=== PATIENT | male | born 1960 | race Caucasian/White ===

== ENCOUNTER 2020-04-24 14:09 | Emergency (ER) | payer OTHER, SELFPAY ==
[2020-04-24] VITALS (9 sets, daily range): BP systolic 143–240; BP diastolic 96–111; PULSE 74–99; RESP 16–25; TEMP 36.6–37.1; O2SAT 96–100
--- NOTE | ~2020-04-24 | CT_ITS ---
EXAMINATION: CT thoracic lumbar wo con EXAM DATE: 04/24/2020 15:13 INDICATION: Numbness and tingling to lower legs and feet. TECHNIQUE: Spiral CT thoracolumbar spine was performed without contrast. Axial, coronal and sagittal images of the thoracic spine were reviewed. Axial, coronal and sagittal images of the lumbar spine we re reviewed. The dose-length product (DLP) for this examination was 2184.65 mGy-cm. The exposure was tailored according to patient size (auto mA exposure control), and iterative reconstruction (ASIR) w as used as additional dose reduction technique. There is no prior study for comparison. FINDINGS: THORACIC SPINE: There is a mass centered in the posterior elements of the T2 vertebral body which is round in shape, measuring about 4.4 x 4.8 cm, causing significant central canal stenosis. The T2 pedi cles and spinous processes are nearly completely eroded. This is most likely some kind of malignancy/ metastatic disease. A contrast enhanced MRI thoracic spine would be better for evaluating degree of c entral canal stenosis, but cord compression is likely. If patient's symptoms are acute, consider tria l of steroids. Neurosurgical consult also recommended. There are small Schmorl's nodes at the mid and lower thoracic levels, and mild diffuse thoracic disc disease. The vertebral body heights are aligne d. LUMBAR SPINE: There is a heterogeneously enhancing mass in the inferomedial aspect of the right kidne y measuring 4.5 cm, appearance most consistent with a cystic renal cell cancer. There is no evidence of acute lumbar fracture. There is no disc space widening or traumatic vertebral body subluxation cerna spected. Paraspinal soft tissue is unremarkable. There is overall mild to moderate lumbar facet art hropathy. No additional osteoblastic or osteolytic lesions are identified. No more than mild to moder ate lumbar neural foraminal and central canal stenosis. A detailed level by level evaluation of spond ylosis can be added as addendum if requested. IMPRESSION: 1. Mass centered in posterior elements of T2 most likely malignancy, could be metastatic disease (re nal cell cancer?) or plasmocytoma other histology. Severe central canal stenosis, cord compression is suspected. Recommend MR thoracic spine without and with contrast, neurosurgical consult, considering steroid trial. 2. Right renal heterogeneous 4.5 cm mass inferomedially, incompletely imaged. Most likely cystic RCC . Recommend consult. 3. Mild thoracic, mild to moderate lumbar spondylosis. Reviewed, dictated and finalized at location A. IMPRESSION: 1. Mass centered in posterior elements of T2 most likely malignancy, could be metastatic disease (renal cell cancer?) or plasmocytoma other histology. Severe central canal stenosis, cord compression is suspected. Recommend MR thoracic s pine without and with contrast, neurosurgical consult, considering steroid tria l. 2. Right renal heterogeneous 4.5 cm mass inferomedially, incompletely imaged. Most likely cystic RCC. Recommend consult. 3. Mild thoracic, mild to moderate lumbar spondylosis.
--- NOTE | ~2020-04-24 | CT_ITS ---
EXAMINATION: CT chest abdomen pelvis w con EXAM DATE: 04/24/2020 16:53 INDICATION: Right renal mass, T2 vertebral posterior element mass. TECHNIQUE: Spiral CT of the chest, abdomen and pelvis was performed following intravenous injection o f 100 mL Omnipaque 350. Axial, coronal and sagittal images were reviewed. Coronal maximum intensity pixel images of chest reviewed. The dose-length product (DLP) for this examination was 1580.86 mGy- cm. The exposure was tailored according to patient size (auto mA exposure control), and iterative re construction (ASIR) was used as additional dose reduction technique. Correlation is made to thoracolu mbar spine same date. FINDINGS: CHEST: There is a mass centered in the posterior elements of the T2 vertebral body with osseous destr uction, heterogeneous enhancement, measuring 4.6 x 4.9 cm, and likely causing severe central canal st enosis, cord compression. The lungs are clear. There are no pleural or pericardial effusions. Tra cheobronchial tree is patent. There is no mediastinal, hilar or axillary lymphadenopathy. There i s no pneumothorax. Heart normal in size. There is mild coronary arterial calcification, arterial sclerosis. ABDOMEN PELVIS: There is an 8 cm mass in the lower pole of the right kidney, consistent with renal ce ll cancer. The liver, spleen, adrenal glands and pancreas are unremarkable. Gallbladder is unremark able. No biliary obstruction. The prostate is unremarkable. The bladder is unremarkable. There i s no retroperitoneal or pelvic lymphadenopathy. There is mild scattered arteriosclerotic disease. The appendix is not positively visualized. There is no pericecal inflammatory change to suggest appe ndicitis. The stomach and small bowel are unremarkable. There is mild scattered colonic diverticulo sis. There is no adjacent inflammatory change to suggest diverticulitis. No free intraperitoneal ga s. IMPRESSION: 1. Right renal mass up to 8 cm likely RCC. 2. T2 posterior element mass up to 4.9 cm, likely causing severe central canal stenosis, cord compre ssion. 3. Mild scattered colonic diverticulosis. Reviewed, dictated and finalized at location A. IMPRESSION: 1. Right renal mass up to 8 cm likely RCC. 2. T2 posterior element mass up to 4.9 cm, likely causing severe central canal stenosis, cord compression. 3. Mild scattered colonic diverticulosis.
--- NOTE | 2020-04-24 14:28 | ECG_ITS ---
Measurements Intervals [place] Rate: 87 P: 28 MI: 162 QRS: 21 QRSD: 99 T: 20 QT: 365 QTc: 440 Interpretive Statements SINUS RHYTHM MINIMAL Q WAVES- ANTEROLAT/INF LEADS BORDERLINE ECG Electronically Signed On 04-24-2020 15:48:28 CDT by Oleksandr Naranjo D.O.
[2020-04-24] MEDS: SODIUM CHLORIDE 0.9% IV 1,000 ML 999 ML IV CONT (14:38)
[2020-04-24 14:48] LABS: Basophils Absolute Auto 0.1 K/mm3 (0.0-0.1); Eosinophils Absolute Auto 0.1 K/mm3 (0-0.3); Eosinophils Percent Auto 0.7 % (0-4.4); Hematocrit 48.4 % (42.0-52.0); Hemoglobin 16.5 g/dL (14.0-18.0); Immature Granulocyte Absolute 0.04 K/mm3 (0.00-0.031); Immature Granulocyte Percent A 0.3 % (0-0.5); Lymphocytes Absolute Auto 4.21 K/mm3 (0.9-3.2); Lymphocytes Percent Auto 34.9 % (18.3-44.2); Mean Corpuscular HGB Conc 34.1 g/dl (32-36); Mean Corpuscular Hemoglobin 30.4 pg (26-34); Mean Corpuscular Volume 89.1 fl (80-100); Mean Platelet Volume 9.7 fl (7.4-10.4); Monocytes Percent Auto 16.9 % (2.6-8.5); Neutrophils Absolute Auto 5.6 K/mm3 (1.3-6.7); Neutrophils Percent Auto 46.2 % (45.5-73.1); Platelet Count Result 594 k/mm3 (150-375); Red Blood Count 5.43 M/mm3 (4.6-6.20); Red Cell Distribution Width 12.7 % (11.5-14.5); White Blood Count 12.1 K/mm3 (4.5-10.0)
[2020-04-24 14:58] LABS: INR 1.1; Partial Thromboplastin Time 27.4 SECONDS (22.3-36.8); Prothrombin Time 14.1 Seconds (11.1-14.7)
[2020-04-24 15:01] LABS: Alanine Aminotransferase 50 U/L (4-50); Albumin Level 4.3 g/dL (3.5-5.1); Alkaline Phosphatase 61 U/L (38-126); Anion Gap 12.5 mmol/L (7-16); Aspartate Amino Transferase 50 U/L (17-59); Bilirubin,Total 0.6 mg/dL (0.2-1.3); Blood Urea Nitrogen 15 mg/dL (9-20); CRP < 0.5 mg/dL (<1.0); Calcium 9.6 mg/dL (8.4-10.2); Carbon Dioxide 25 mmol/L (22-30); Chloride 105 mmol/L (98-107); Estimated CRCL calculation 93 ml/min; Estimated Glomerular Filt Rate > 60; Glucose 92 mg/dL (75-110); Potassium 3.5 mmol/L (3.4-5.0); Sodium 139 mmol/L (137-145)
--- NOTE | 2020-04-24 15:08 | ED.GENADULT ---
HPI - General Adult General Chief complaint: Neuro Symptoms/Deficit Stated complaint: leg numbness/upper back pain Time Seen by Provider: 04/24/20 14:27 Source: patient and family Mode of arrival: ambulatory Limitations: no limitations History of Present Illness HPI narrative: Patient is a 59-year-old male who presents to emergency department for evaluation of upper thoracic back pain for 8 weeks is a moderate aching pain worse with position and activity his physician prescribed an anti-inflammatory muscle relaxer which she states helped at first but has begun to not help patient also notes over the last 2 days he developed some numbness and tingling in the lower extremities patient has been taking the prescribed medications only patient denies injury or trauma or recent illness or similar occurrence in the past presents with normal gait no distress Related Data Home Medications Medication Instructions Recorded Confirmed etodolac 400 mg PO BID 04/24/20 04/24/20 fluoxetine 60 mg PO DAILY 04/24/20 04/24/20 methocarbamol 500 mg PO HS 04/24/20 04/24/20 trazodone 100 mg PO HS 04/24/20 04/24/20 Allergies Allergy/AdvReac Type Severity Reaction Status Date / Time No Known Allergies Allergy Mild Verified 04/24/20 14:09 Review of Systems Review of Systems: All systems reviewed & are unremarkable except as noted in HPI and below PMFSH Past Medical History Medical History (Updated 04/24/20 @ 18:40 by Regulo Jaimes PA-C) Depression Surgical History Surgical History (Updated 04/24/20 @ 15:09 by Regulo Jaimes PA-C) History of appendectomy Social History Social History (Updated 04/24/20 @ 15:09 by Regulo Jaimes PA-C) Smoking status: Never smoker Exam Narrative: Exam Narrative: GENERAL: Well-appearing, well-nourished, and in no acute distress. HEAD: Normocephalic, atraumatic. EYES: PERRLA and EOMI. ENT: Nares clear, no rhinorrhea or epistaxis. Mucous membranes moist. NECK: Supple. No adenopathy or masses. CHEST: Clear to auscultation. No respiratory distress. No wheezes rales or rhonchi HEART: Regular rate and rhythm. No murmur heard. Normal peripheral pulses. ABDOMEN: Soft, nontender, nondistended EXTREMITIES: Normal range of motion. No edema. Midthoracic tenderness no other thoracic or lumbar cervical tenderness no deformities noted on exam SKIN: Warm, dry, no rash. NEURO: No focal deficits. Alert and oriented x3. Motor and sensory intact and symmetrical in the extremities. Cranial nerves II through XII grossly intact . Normal speech and gait. No pronator drift PSYCH: Normal mood and affect. Course Course Emergency Course: Patient in the room at this time aware of case findings treatment plan diagnosis will be transferred to [facility] as a direct admit to the neurosurgical service given blood pressure medication and pain management in the emergency department Consultations Consultation #1: Discussed case with neurosurgery at [facility] who is agreed to accept the patient as a direct admission Date: 04/24/20 Time: 16:12 Vital Signs Vital signs: Vital Signs Temperature 97.9 F 04/24/20 14:14 Pulse Rate 99 04/24/20 14:14 Respiratory Rate 25 H 04/24/20 14:14 Blood Pressure 203/110 H 04/24/20 14:14 Pulse Oximetry 96 04/24/20 14:14 Temperature 98.5 F 04/24/20 18:02 Pulse Rate 74 04/24/20 18:02 Respiratory Rate 19 04/24/20 18:02 Blood Pressure 186/101 H 04/24/20 18:02 Pulse Oximetry 97 04/24/20 18:02 Medical Decision Making [facility] Narrative Medical decision making narrative: 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
[2020-04-24 15:16] LABS: Erythrocyte Sedimentation Rate 11 mm/hr (0-20)
[2020-04-24] MEDS: MORPHINE SULFATE 4 MG/ML INJ IV PUSH ×3 (15:50→21:31)
[2020-04-24] MEDS: hydrALAZINE HCL 20 MG/ML VIAL 10 MG IV PUSH (16:13)
[2020-04-24 16:48] LABS: Add Urine Microscopic? YES; Appearance Urine Clear (Clear); Bilirubin Urine Negative (Negative); Blood Urine Negative (Negative); Color Urine Straw (Yellow); Glucose Urine UA Negative (Negative); Ketones Urine Negative (Negative); Leukocyte Esterase Ur Negative LEU/UL (Negative); Mucus Urine Rare /lpf; Nitrate Urine Negative (Negative); Protein Urine Negative (Negative); RBC Urine 0-2 /hpf (0-2); Specific Grav Ur 1.011 (1.001-1.035); WBC Urine 0-3 /hpf
[2020-04-24] MEDS: METOPROLOL TARTRATE INJ 5 MG/5 ML VIAL IV PUSH (17:03)
--- NOTE | 2020-04-24 18:11 | PC.NURSE ---
Addendum entered by Dianne Mccray 04/24/20 19:56: Also called both [facility] and [facility], both declined due to being down staff/trucks Addendum entered by Dianne Mccray 04/24/20 19:49: Called to check status on ETA...approximately 22:00...waiting on an ambulance to complete trip to [facility]. Original Note: [facility] ACCEPTED TRANSFER to [facility] 1972 Trip # [id number]
[2020-04-25 00:05] VITALS: BP 154/97; PULSE 82; RESP 16; O2SAT 98
--- NOTE | 2020-04-25 00:35 | PC.NURSE ---
pt c/o increased pain in cervicle MD suma notified. pain meds verbal order Dilaudid 0.5mg iv push.
[2020-04-25 02:56] VITALS: BP 161/92; PULSE 74; RESP 16; O2SAT 98
[2020-04-25 05:21] VITALS: BP 162/79; PULSE 78; RESP 18; TEMP 36.6; O2SAT 98
== END 2020-04-25 05:22 | disposition short-term general hospital (02) ==
PROVIDERS: Emergency Medicine Emergency Medical Services; Emergency Provider Emergency Medicine
DX: M89.9 Disorder of bone, unspecified (principal); N28.89 Other specified disorders of kidney and ureter; F32.9 Major depressive disorder, single episode, unspecified; M47.814 Spondylosis without myelopathy or radiculopathy, thoracic region; M47.816 Spondylosis without myelopathy or radiculopathy, lumbar region
CPT/HCPCS: 36415; 71260; 72128; 72131; 74177; 80053; 81001; 85025; 85610; 85652; 85730; 86140; 87040; 93005; 96361; 96365; 96375; 96376; 99285; J0131; J0360; J1170; J2270; J7030; Q9967

== ENCOUNTER 2020-05-13 21:41 | Emergency (ER) | payer OTHER, SELFPAY ==
--- NOTE | ~2020-05-13 | XR_ITS ---
XR chest 2V 05/13/2020 23:43 Indication: Fever. Procedure: 2 view chest Comparison: 09/28/2006 Findings: Left basilar infiltrates. Heart size normal. Right lung clear. No pleural effusion, edema o r pneumothorax. There are surgical changes of the upper cervical spine. Impression: 1: Left basilar infiltrates, atelectasis versus pneumonia. Reviewed, dictated and finalized at location A. Impression: 1: Left basilar infiltrates, atelectasis versus pneumonia.
[2020-05-13 21:43] VITALS: BP 145/85; PULSE 98; RESP 18; TEMP 38.1; O2SAT 93
[2020-05-13 21:52] VITALS: PULSE 98
[2020-05-13 21:53] VITALS: RESP 18; O2SAT 99
--- NOTE | 2020-05-13 23:30 | PC.NURSE ---
pt states he is unable to provide urine specimen at this time.
[2020-05-13 23:37] LABS: Basophils Absolute Auto 0.1 K/mm3 (0.0-0.1); Basophils Percent Auto 0.6 % (0.2-1.2); Eosinophils Absolute Auto 0.3 K/mm3 (0-0.3); Eosinophils Percent Auto 3.7 % (0-4.4); Hematocrit 31.5 % (42.0-52.0); Hemoglobin 10.3 g/dL (14.0-18.0); Immature Granulocyte Absolute 0.03 K/mm3 (0.00-0.031); Immature Granulocyte Percent A 0.3 % (0-0.5); Lymphocytes Absolute Auto 2.13 K/mm3 (0.9-3.2); Lymphocytes Percent Auto 23.6 % (18.3-44.2); Mean Corpuscular HGB Conc 32.7 g/dl (32-36); Mean Corpuscular Hemoglobin 29.6 pg (26-34); Mean Corpuscular Volume 90.5 fl (80-100); Mean Platelet Volume 8.7 fl (7.4-10.4); Monocytes Absolute Auto 1.5 K/mm3 (0.1-0.6); Monocytes Percent Auto 16.5 % (2.6-8.5); Neutrophils Percent Auto 55.3 % (45.5-73.1); Platelet Count Result 663 k/mm3 (150-375); Red Blood Count 3.48 M/mm3 (4.6-6.20); Red Cell Distribution Width 13.8 % (11.5-14.5)
[2020-05-13 23:45] LABS: INR 1.2; Prothrombin Time 14.6 Seconds (11.1-14.7)
[2020-05-13 23:46] LABS: Partial Thromboplastin Time 33.9 SECONDS (22.3-36.8)
[2020-05-13 23:47] LABS: Lactic Acid Reflex 1.1 mmol/L (0.7-2.1)
[2020-05-13 23:49] LABS: Alanine Aminotransferase 25 U/L (4-50); Albumin Level 3.2 g/dL (3.5-5.1); Alkaline Phosphatase 66 U/L (38-126); Anion Gap 5 mmol/L (8-16); Aspartate Amino Transferase 27 U/L (17-59); Bilirubin,Total 0.1 mg/dL (0.2-1.3); Blood Urea Nitrogen 10 mg/dL (9-20); CRP 4.2 mg/dL (<1.0); Calcium 8.6 mg/dL (8.4-10.2); Carbon Dioxide 28 mmol/L (22-30); Chloride 103 mmol/L (98-107); Estimated CRCL calculation 121 ml/min; Estimated Glomerular Filt Rate > 60; Glucose 117 mg/dL (75-110); Potassium 3.9 mmol/L (3.4-5.0); Sodium 136 mmol/L (137-145)
--- NOTE | 2020-05-13 23:51 | PC.NURSE ---
pt ambulatory to restroom at this time to try and provide urine specimen
[2020-05-14 00:19] LABS: Add Urine Microscopic? YES; Amorphous Sediment Urine Few; Appearance Urine Cloudy (Clear); Bacteria Urine Trace /hpf; Bilirubin Urine Negative (Negative); Blood Urine 1+ (Negative); Color Urine Yellow (Yellow); Glucose Urine UA Negative (Negative); Ketones Urine Negative (Negative); Leukocyte Esterase Ur Negative LEU/UL (Negative); Nitrate Urine Negative (Negative); Protein Urine Negative (Negative); Specific Grav Ur 1.018 (1.001-1.035); Urobilinogen Urine Negative mg/dL (<2.0)
--- NOTE | 2020-05-14 00:51 | ED.GENADULT ---
HPI - General Adult General Chief complaint: Unspecified Stated complaint: calf pain Time Seen by Provider: 05/13/20 22:34 History of Present Illness HPI narrative: Patient is a 59-year-old male who presents the ER with leg pain. Patient recently diagnosed with DVT at [facility]. He has been on Eliquis for several days. He was discharged yesterday. Reports cramping in his calf is gone to his mid thigh. Is also had some in his right shoulder. Patient is without any chest pain or shortness of breath or cough. Patient was found to be febrile upon arrival to the ER. Of note patient has renal cell carcinoma and was found to have metastases to his spine. He underwent surgery at [facility] to remove his spinal metastases. No pain or tenderness around his surgical site. No headache or issues with range of motion of the neck. Related Data Home Medications Medication Instructions Recorded Confirmed etodolac 400 mg PO BID 04/24/20 04/24/20 fluoxetine 60 mg PO DAILY 04/24/20 04/24/20 methocarbamol 500 mg PO HS 04/24/20 04/24/20 trazodone 100 mg PO HS 04/24/20 04/24/20 Allergies Allergy/AdvReac Type Severity Reaction Status Date / Time No Known Allergies Allergy Mild Verified 05/13/20 21:48 Review of Systems Review of Systems: All systems reviewed & are unremarkable except as noted in HPI and below Constitutional: Constitutional: Reports chills and Reports fever(s) ENT: Denies nasal congestion and Denies sore throat Cardiovascular: Cardiovascular: Denies chest pain and Denies radiating jaw, neck or arm pain Respiratory: Respiratory: Denies cough, Denies dyspnea and Denies wheezing Gastrointestinal: Gastrointestinal: Denies abdominal pain, Denies nausea and Denies vomiting Musculoskeletal: Musculoskeletal: Denies arthralgias, Denies joint swelling and Reports muscle cramps PMFSH Past Medical History Medical History (Updated 05/14/20 @ 01:36 by Benji Morse MD) Depression DVT (deep venous thrombosis) Renal cell carcinoma Surgical History Surgical History (Updated 05/14/20 @ 01:33 by Benji Morse MD) H/O neck surgery History of appendectomy Social History Social History (Updated 04/24/20 @ 15:09 by Regulo Jaimes PA-C) Smoking status: Never smoker Gender identity (if verbalized by the patient): Male Exam Narrative: Exam Narrative: GENERAL: Well-appearing, well-nourished, and in no acute distress. HEAD: Normocephalic, atraumatic. ENT: Mucous membranes moist. NECK: Supple. Well-healing midline laceration to the posterior neck with sutures intact and no wound dehiscence. CHEST: Clear to auscultation. No respiratory distress. HEART: Regular rate and rhythm. Normal peripheral pulses. EXTREMITIES: Normal range of motion. No edema. SKIN: Warm, dry, no rash. NEURO: Alert and oriented x3. Course Course Emergency Course: Patient resting comfortably. Informed of results. Ambulatory without hypoxia. Patient will be COVID swab and started on azithromycin for pneumonia. Vital Signs Vital signs: Vital Signs Temperature 100.6 F H 05/13/20 21:43 Pulse Rate 98 05/13/20 21:43 Respiratory Rate 18 05/13/20 21:43 Blood Pressure 145/85 H 05/13/20 21:43 Pulse Oximetry 93 05/13/20 21:43 Temperature 100.6 F H 05/13/20 21:43 Pulse Rate 98 05/13/20 21:52 Respiratory Rate 18 05/13/20 21:53 Blood Pressure 145/85 H 05/13/20 21:43 Pulse Oximetry 99 05/13/20 21:53 Medical Decision Making Vital Signs Vital Signs: Vital Signs Temperature 100.6 F H 05/13/20 21:43 Pulse Rate 98 05/13/20 21:43 Respiratory Rate 18 05/13/20 21:43 Blood Pressure 145/85 H 05/13/20 21:43 Pulse Oximetry 93 05/13/20 21:43 Temperature 100.6 F H 05/13/20 21:43 Pulse Rate 98 05/13/20 21:52 Respiratory Rate 18 05/13/20 21:53 Blood Pressure 145/85 H 05/13/20 21:43 Pulse Oximetry 99 05/13/20 21:53 Lab Data Result diagrams: 05/13/20 23:27 05/13/20 23:2
--- NOTE | 2020-05-14 01:19 | PC.NURSE ---
pt ambulatory maintaining SpO2 of 96-97%. pt denies any SOB.
[2020-05-14 01:51] VITALS: BP 110/73; PULSE 80; RESP 19; O2SAT 96
[2020-05-14 14:53] LABS: SARS-CoV-2 RNA PCR Negative
== END 2020-05-14 01:52 | disposition home or self-care (01) ==
PROVIDERS: Emergency Provider Emergency Medicine
DX: J18.9 Pneumonia, unspecified organism (principal); Z20.828 Contact with and (suspected) exposure to other viral communicable diseases; F32.9 Major depressive disorder, single episode, unspecified
CPT/HCPCS: 36415; 71046; 80053; 81001; 83605; 85025; 85610; 85730; 86140; 87635; 96365; 99284; C9803; J0131; U0003

== ENCOUNTER 2020-05-21 07:26 | Emergency (ER) | payer OTHER, MEDICAID, SELFPAY ==
[2020-05-21 07:28] VITALS: BP 153/97; PULSE 91; RESP 20; TEMP 37.1; O2SAT 92
--- NOTE | 2020-05-21 07:44 | ED.GENADULT ---
HPI - General Adult General Chief complaint: Extremity Problem,Nontraumatic Stated complaint: PAIN/NUMBNESS R ARM Time Seen by Provider: 05/21/20 07:26 Source: patient and EMS Mode of arrival: EMS Limitations: no limitations History of Present Illness HPI narrative: 59 years old white male presents with numbness medial side of the right forearm, and squeezing pain medial side right arm started yesterday afternoon, constant. Patient denies any aggravating or relieving factors. Patient is status post thoracic tumor removed on April 25 at [facility]. Patient denies having similar symptoms prior to the surgery. Patient does not remember the name of the surgeon. Patient denies any fever, chills, nausea, vomiting, shortness of breath, chest pain, back pain. Related Data Home Medications Medication Instructions Recorded Confirmed etodolac 400 mg PO BID 04/24/20 04/24/20 fluoxetine 60 mg PO DAILY 04/24/20 04/24/20 methocarbamol 500 mg PO HS 04/24/20 04/24/20 trazodone 100 mg PO HS 04/24/20 04/24/20 amlodipine 5 mg PO DAILY 05/21/20 apixaban [Eliquis] 5 mg PO BID 05/21/20 diazepam 05/21/20 docusate sodium 100 mg PO DAILY 05/21/20 oxycodone 10 mg PO Q12H 05/21/20 Allergies Allergy/AdvReac Type Severity Reaction Status Date / Time No Known Allergies Allergy Mild Verified 05/21/20 07:35 Review of Systems Review of Systems: Narrative: CONSTITUTIONAL: Denies fever, chills, or sweats. EYES: Denies visual changes, redness, or discharge. ENT: Denies rhinorrhea, congestion, sore throat, or otalgia. CARDIOVASCULAR: Denies chest pain, palpitations, or edema. RESPIRATORY: Denies cough or dyspnea. GASTROINTESTINAL: Denies abdominal pain, nausea, vomiting, or diarrhea. GENITOURINARY: Denies dysuria or hematuria. SKIN: Denies rash or itching. MUSCULOSKELETAL: Denies back pain, joint pain, or myalgia. NEUROLOGIC: Denies headache, numbness, or weakness. PSYCHIATRIC: Denies anxiety or depression. [facility] Past Medical History Medical History Depression DVT (deep venous thrombosis) Renal cell carcinoma Surgical History Surgical History H/O neck surgery History of appendectomy Social History Social History Smoking status: Never smoker Gender identity (if verbalized by the patient): Male Exam Narrative: Exam Narrative: General appearance: Well-developed, well-nourished Skin: Normal color. Mid line surgical scar at the upper mid back, clean and dry Head: Normocephalic, nontraumatic Eyes: Clear conjunctiva ENT: Oropharynx normal, ears normal, nose normal Neck: Supple, nontender Chest and respiratory: Airway patent, no respiratory distress, no accessory muscle use Heart: Regular rate/rhythm Abdomen: Soft, nontender, no organomegaly, quiet bowel sounds Vascular: Normal peripheral pulses, normal capillary refill. Musculoskeletal: Normal range of motion, nontender back Neurologic: Alert and oriented ?3, BOSS DYER is normal as tested, no gross motor deficit Course Course Emergency Course: Stable Consultations Consultation #1: dr hummel. The neurosurgeon at [facility]. Send patient to the ED [facility] Date: 05/21/20 Time: 08:25 Consultation #2: Dr. Ng, [facility] ED, accepted the patient for transfer Date: 05/21/20 Time: 08:27 Vital Signs Vital signs: Vital Signs Temperature 37.1 C 05/21/20 07:28 Pulse Rate 91 05/21/20 07:28 Respiratory Rate 20 05/21/20 07:28 Blood Pressure 153/97 H 05/21/20 07:28 Pulse Oximetry 92 05/21/20 07:28 Temperature 37.1 C 09
[2020-05-21 08:11] VITALS: BP 129/82; PULSE 83; RESP 17; O2SAT 93
--- NOTE | 2020-05-21 08:22 | ECG_ITS ---
Measurements Intervals [place] Rate: 91 P: 55 NE: 151 QRS: 69 QRSD: 102 T: 22 QT: 388 QTc: 480 Interpretive Statements SINUS RHYTHM DELAYED PRECORDIAL R/S TRANSITION BASELINE ARTIFACT- I, II, III, AVR, AVL, AVF, V1-V6 BORDERLINE ECG Electronically Signed On 05-21-2020 8:28:14 CDT by Oleksandr Naranjo D.O.
[2020-05-21 09:08] VITALS: BP 126/84; PULSE 81; RESP 18; O2SAT 94
--- NOTE | 2020-05-21 09:41 | PC.NURSE ---
[facility] approx ETA 11a
[2020-05-21 10:56] VITALS: BP 129/84; PULSE 84; RESP 14; O2SAT 97
[2020-05-21 11:44] VITALS: BP 127/89; PULSE 88; RESP 19; O2SAT 96
== END 2020-05-21 11:46 | disposition short-term general hospital (02) ==
PROVIDERS: Emergency Provider Emergency Medicine
DX: R20.2 Paresthesia of skin (principal); Z86.718 Personal history of other venous thrombosis and embolism; F32.9 Major depressive disorder, single episode, unspecified; Z85.528 Personal history of other malignant neoplasm of kidney; Z79.01 Long term (current) use of anticoagulants
CPT/HCPCS: 93005; 96374; 99285; J1100

== ENCOUNTER 2020-12-18 11:00 | Outpatient (RCR) | payer BC, SELFPAY ==
--- NOTE | 2020-11-26 17:52 | PTOPEVAL ---
PHYSICAL THERAPY EVALUATION Thank you for referring Real Pimentel to [facility].?Juan was evaluated for the dx of cervical fusion. The patient is scheduled to be seen for therapy? 2 x/week for 4 weeks. Please review, sign, date and return this plan of care JOSE. I agree with and certify that the following plan of care is medically necessary. Referring Physician Date Attending Provider: Orly Hoover, PHOTOGRAPHIC PRINTER *PT Outpatient Evaluation Start: 11/26/20 16:23 Freq: Status: Active Protocol: Document 11/26/20 16:23 MLV (Rec: 11/26/20 17:32 MLV [id number]) Assessment Status Evaluation Evaluation Information Problem Diagnosis cervical fusion due w/ tumor removed Onset 2020 Cause CA Additional Evaluation Detail The patient has undergone kidney removal after cervical surgery; both due to CA (stage 4). Since surgery, the patient has pain between the shoulder blades into neck and has great difficulty moving his head. The patient c/o spasms at neck muscles and is taking muscle relaxers that help sometimes. The patient walks 2 miles/day despite pain and lifts weights every other day. Subjective Information Patient currently undergoing Query Text:As Reported By Patient/ immunotherapy 1x/month Family Pain Assessment Timing of Pain Assessment Timing of Pain Assessment Assessment Pain Scale Pain Scale Used Numeric (1 - 10) Self Report Pain Assessment Bilateral Spine, Thoracic Reported Pain Level 4 Pain Description Aching,Burning Pain Frequency Acute Greatest Pain Intensity 9 Bilateral Neck Reported Pain Level 5 Pain Description Spasms,Tightness Pain Frequency Acute Greatest Pain Intensity 9 Pain Score Pain Score 5,4: Self Report Interventions Used Interventions Used By Clinicians Education,Electrical Stimulation,Exercise,Heat Pain Relief Interventions Used By Heat,Medication,Sitting Patient Other Alleviating Interventions recliner sitting Cervical and Lumbar ROM Cervical ROM Cervical Flexion (0-60) 47 Query Text:Active in Degrees Cervical Extension (0-70) 20 Query Text:Active in Degrees Cervical Latera
--- NOTE | 2020-12-18 11:56 | PTOPEVAL ---
PHYSICAL THERAPY RE-ASSESSMENT Thank you for referring Real Pimentel to [facility].? The patient is improving with his goals partially met and appropriate/ongoing. The patient is scheduled to be seen for therapy? 2 x/week for 4 more weeks. Please review, sign, date and return this plan of care JOSE. I agree with and certify that the following plan of care is medically necessary. Referring Physician Date Attending Provider: Orly Hoover, CREPE BOX TENDER *PT Outpatient Re-Evaluation Start: 11/26/20 16:23 Freq: Status: Active Protocol: Document 12/18/20 11:33 MLV (Rec: 12/18/20 11:56 [id number] [email or web address]) Therapy Assessment Status Assessment Status Progress Evaluation Information Problem Diagnosis cervical fusion due w/ tumor removed Onset 2020 Cause CA Additional Evaluation Detail Pt feels overall his pain is 25% less with daily activity. Patient feels the therapy is helping but the heat is causing irritation due to weight of it. Patient feels he needs more therapy for further improvement. Pain Assessment Timing of Pain Assessment Timing of Pain Assessment Assessment Pain Scale Pain Scale Used Numeric (1 - 10) Self Report Pain Assessment Bilateral Spine, Thoracic Reported Pain Level 3 Pain Description Aching Bilateral Neck Reported Pain Level 3 Pain Score Pain Score 3,3: Self Report Interventions Used Interventions Used By Clinicians Education,Electrical Stimulation,Manual Therapy Techniques Pain Relief Interventions Used By Exercise,Inactivity/Rest Patient Cervical and Lumbar ROM Cervical ROM Cervical Flexion (0-60) 57 Query Text:Active in Degrees Cervical Extension (0-70) 20 Query Text:Active in Degrees Cervical Lateral Flexion Right (0-50) 19 Query Text:Active in Degrees Cervical Lateral Flexion Left (0-50) 18 Query Text:Active in Degrees Cervical Rotation Right (0-90) 32 Query Text:Active in Degrees Cervical Rotation Left (0-90) 45 Query Text:Active in Degrees Cervical ROM Comments motions improved except sidebend due to extent of fusion Muscle Length Testing Muscle Length Testing Scalene Group Muscle Length (R) Moderate Tightness,(L) Query Text: Moderate Tightness Upper Trapezius Muscle Length (R) Moderate Tightness,(L)
--- NOTE | 2020-12-22 11:11 | PCPTNOTE ---
Patient called & cancelled scheduled appointment this date due to being in the hospital.
--- NOTE | 2020-12-29 11:20 | PCPTNOTE ---
Patient did not show to appointment. Patient was called and voicemail was left.
--- NOTE | 2021-01-12 11:28 | PCPTNOTE ---
Patient's scheduled appointment was cancelled this date, not sure if patient is in or out of the hospital. Called and left a message.
--- NOTE | 2021-01-22 13:22 | PCPTNOTE ---
PHYSICAL THERAPY DISCHARGE Attending Provider: Orly Hoover, PRISM MEASURER Patient:Real Pimentel Date of :1960 Patient has not returned for any further treatments since 12/18/2020, therefore he will be discharged at this time. Patient?s initial visit was on 11/26/2020 16:30 and he had a total of 6 visits. The goals have not been met. Patient has been ill and in the hospital so unable to attend therapy currently. Thank you for referring this patient to [facility]. Please review, sign, date and return this discharge summary JOSE. I have been updated about the patient's current status and I agree with discharge from the above service at this time. Referring Physician Date
== END 2021-01-27 09:13 | disposition home or self-care (01) ==
LOC: ANHPT 11:00
PROVIDERS: Visit Provider Nurse Practitioner Adult Health
DX: C64.9 Malignant neoplasm of unspecified kidney, except renal pelvis (principal); Z98.1 Arthrodesis status
CPT/HCPCS: 97014; 97110; 97140; 97162; G0283

== ENCOUNTER 2021-04-07 07:53 | Emergency (ER) | payer BC, SELFPAY ==
[2021-04-07] VITALS (18 sets, daily range): BP systolic 114–148; BP diastolic 75–84; PULSE 78–99; RESP 16–25; TEMP 37.7; O2SAT 90–100
--- NOTE | ~2021-04-07 | CT_ITS ---
EXAMINATION: CT abdomen pelvis w con DATE: 04/07/2021 09:22 INDICATION: 1-2 weeks of nausea and vomiting. TECHNIQUE: Computed tomography (CT) of the abdomen and pelvis was performed with 100 mL Omnipaque-350 intravenous contrast. Automated exposure control and iterative reconstruction technique were employe d. The dose-length product was 952.41 mGy-cm. COMPARISON: None FINDINGS: Mild dependent atelectasis in the bilateral lower lobes. Heart size is normal. No pericardial or pleu ral effusion. Liver, gallbladder, pancreas, bilateral adrenal glands are normal. Spleen is absent wit h suggestion of some scarring in the region of the tail of the pancreas suggesting prior splenectomy. Interval right nephrectomy for reported renal cell carcinoma. No evident residual or locally recurre nt disease. There are few scattered colonic diverticula without adjacent inflammatory change to sugge st diverticulitis. No bowel obstruction. Mild wall thickening at the cecum suspicious for mild focal colitis. No pneumatosis, abscess or free intraperitoneal gas or fluid. Mild diffuse bladder wall thic kening which could be related to chronic outlet obstruction from the enlarged prostate or cystitis ei ther acute or chronic. Small fat-containing right inguinal hernia. Small amount of calcified atherosc lerotic plaque without significant stenosis at the origins of the celiac and superior mesenteric miranda sindi. The inferior mesenteric artery is patent. No pathologically enlarged abdominal or pelvic lympha denopathy. Tiny sclerotic bone islands at the left acetabulum and left femoral head. No suspicious ly tic or blastic bone lesions. IMPRESSION: 1. Mild focal colitis at the cecum which could be infectious, inflammatory or ischemic in etiology. 2. Likely splenectomy and interval right nephrectomy for reported renal cell carcinoma. No evident re sidual, recurrent or metastatic disease in the visualized abdomen, pelvis or lower chest. Reviewed, dictated and finalized at location A. IMPRESSION: 1. Mild focal colitis at the cecum which could be infectious, inflammatory or i schemic in etiology. 2. Likely splenectomy and interval right nephrectomy for reported renal cell ca rcinoma. No evident residual, recurrent or metastatic disease in the visualized abdomen, pelvis or lower chest.
--- NOTE | ~2021-04-07 | XR_ITS ---
EXAMINATION: XR chest 2V DATE: 04/07/2021 08:19 INDICATION: Hypertension, abdominal pain and weakness TECHNIQUE: frontal view of the chest was obtained. COMPARISON: Chest radiograph dated 05/13/[address] dated 04/24/2020 FINDINGS: : Loss in the right hemithorax with unchanged elevation of the right hemidiaphragm beneath which ther e is colonic interposition. No focal airspace opacities, pulmonary edema, pleural effusion or pneumot horax. The cardiomediastinal silhouette is normal. Again seen is a cemented cervicothoracic posterior spinal fusion spanning a lytic lesion involving the T2 spinous process. IMPRESSION: 1. No acute cardiopulmonary disease. Reviewed, dictated and finalized at location A.
--- NOTE | 2021-04-07 08:02 | ECG_ITS ---
Measurements Intervals Athena Rate: 95 P: 2 MA: 152 QRS: 2 QRSD: 101 T: 5 QT: 349 QTc: 440 Interpretive Statements SINUS RHYTHM CONSIDER INFERIOR INFARCT, AGE INDETERMINATE BASELINE ARTIFACT- I, II, AVR, AVL, AVF, V1 ABNORMAL ECG Electronically Signed On 04-07-2021 8:13:29 CDT by Oleksandr Naranjo D.O.
[2021-04-07 08:11] LABS: Basophils Absolute Auto 0.1 K/mm3 (0.0-0.1); Basophils Percent Auto 0.6 % (0.2-1.2); Eosinophils Absolute Auto 0.3 K/mm3 (0-0.3); Eosinophils Percent Auto 2.5 % (0-4.4); Hematocrit 42.9 % (42.0-52.0); Hemoglobin 14.3 g/dL (14.0-18.0); Immature Granulocyte Absolute 0.02 K/mm3 (0.00-0.031); Immature Granulocyte Percent A 0.2 % (0-0.5); Lymphocytes Absolute Auto 5.37 K/mm3 (0.9-3.2); Lymphocytes Percent Auto 49.7 % (18.3-44.2); Mean Corpuscular HGB Conc 33.3 g/dl (32-36); Mean Corpuscular Hemoglobin 29.6 pg (26-34); Mean Corpuscular Volume 88.8 fl (80-100); Mean Platelet Volume 8.7 fl (7.4-10.4); Monocytes Absolute Auto 1.5 K/mm3 (0.1-0.6); Monocytes Percent Auto 13.4 % (2.6-8.5); Neutrophils Absolute Auto 3.6 K/mm3 (1.3-6.7); Neutrophils Percent Auto 33.6 % (45.5-73.1); Platelet Count Result 663 k/mm3 (150-375); Red Blood Count 4.83 M/mm3 (4.6-6.20); Red Cell Distribution Width 17.6 % (11.5-14.5); White Blood Count 10.8 K/mm3 (4.5-10.0)
--- NOTE | 2021-04-07 08:13 | PC.NURSE ---
Pt to xray at this time.
[2021-04-07 08:21] LABS: Alanine Aminotransferase 35 U/L (4-50); Albumin Level 3.6 g/dL (3.5-5.1); Alkaline Phosphatase 51 U/L (38-126); Anion Gap 7 mmol/L (8-16); Aspartate Amino Transferase 57 U/L (17-59); Bilirubin,Total 0.9 mg/dL (0.2-1.3); Blood Urea Nitrogen 11 mg/dL (9-20); Calcium 8.9 mg/dL (8.4-10.2); Carbon Dioxide 28 mmol/L (22-30); Chloride 99 mmol/L (98-107); Estimated CRCL calculation 59 ml/min; Estimated Glomerular Filt Rate 52; Glucose 92 mg/dL (65-110); Sodium 134 mmol/L (137-145)
--- NOTE | 2021-04-07 08:34 | ED.GENADULT ---
HPI - General Adult General Chief complaint: Back Pain/Injury Stated complaint: back pain, nauseated, weak Time Seen by Provider: 04/07/21 08:33 Source: patient and family Limitations: no limitations History of Present Illness HPI narrative: Patient is 60 years old white male presented to the ED with general weakness for the last 2 weeks. Patient was admitted to [facility] for 3 days, got discharge 2 to 3 weeks ago. Then went back again to [facility], 4 days ago because of nausea and vomiting, patient received IV fluid and then discharged home. Patient came to us today because he is still weak all over with intermittent vomiting and abdominal pain. History of renal cell carcinoma with bone metastasis, currently under chemotherapy, immunotherapy by [facility]. Patient denies any fever, chills, diarrhea. Related Data Home Medications Medication Instructions Recorded Confirmed etodolac 400 mg PO BID 04/24/20 04/24/20 fluoxetine 60 mg PO DAILY 04/24/20 04/24/20 methocarbamol 500 mg PO HS 04/24/20 04/24/20 trazodone 100 mg PO HS 04/24/20 04/24/20 amlodipine 5 mg PO DAILY 05/21/20 apixaban [Eliquis] 5 mg PO BID 05/21/20 diazepam 05/21/20 docusate sodium 100 mg PO DAILY 05/21/20 oxycodone 10 mg PO Q12H 05/21/20 Allergies Allergy/AdvReac Type Severity Reaction Status Date / Time No Known Allergies Allergy Mild Verified 05/21/20 07:35 Review of Systems Review of Systems: Narrative: CONSTITUTIONAL: Denies fever, chills, or sweats. EYES: Denies visual changes, redness, or discharge. ENT: Denies rhinorrhea, congestion, sore throat, or otalgia. CARDIOVASCULAR: Denies chest pain, palpitations, or edema. RESPIRATORY: Denies cough or dyspnea. GASTROINTESTINAL: Abdominal pain with nausea and vomiting GENITOURINARY: Denies dysuria or hematuria. SKIN: Denies rash or itching. MUSCULOSKELETAL: History of chronic back pain secondary to metastasis NEUROLOGIC: Denies headache, numbness, or weakness. PSYCHIATRIC: Depression PMFSH Past Medical History Medical History (Updated 04/07/21 @ 10:52 by Daly Spencer MD) Depression DVT (deep venous thrombosis) Renal cell carcinoma Surgical History Surgical History H/O neck surgery History of appendectomy Social History Social History Smoking status: Never smoker Gender identity (if verbalized by the patient): Male Exam Narrative: Exam Narrative: CONSTITUTIONAL: Denies fever, chills, or sweats. EYES: Denies visual changes, redness, or discharge. ENT: Denies rhinorrhea, congestion, sore throat, or otalgia. CARDIOVASCULAR: Denies chest pain, palpitations, or edema. RESPIRATORY: Denies cough or dyspnea. GASTROINTESTINAL: Mild abdominal tenderness at the left side, decreased bowel sounds GENITOURINARY: Denies dysuria or hematuria. SKIN: Denies rash or itching. MUSCULOSKELETAL: Back pain NEUROLOGIC: Denies headache, numbness, or weakness. PSYCHIATRIC: Depression Course Course Emergency Course: Stable Vital Signs Vital signs: Vital Signs Temperature 37.7 C H 04/07/21 07:58 Pulse Rate 98 04/07/21 07:58 Respiratory Rate 23 H 04/07/21 07:58 Blood Pressure 148/84 H 04/07/21 07:58 Pulse Oximetry 95 04/07/21 07:58 Temperature 37.7 C H 04/07/21 07:58 Pulse Rate 98 04/07/21 07:58 Respiratory Rate 23 H 04/07/21 07:58 Blood Pressure 148/84 H 04/07/21 07:58 Pulse Oximetry 95 04/07/21 07:58 Medical Decision Making MDM Narrative Medical decision making narrative: Patient presents with weakness, intermittent vomiting. My conclusion is secondary to chemotherapy immunotherapy, new metastasis, patient usually managed by [facility] and [facility]. Came to our emergency room today for a second opinion. Labs, CT abdomen and pelvis with IV contrast, IV fluid, IV Dilaudid and Zofran ordered. Further plan to follow. Blood work-up s
[2021-04-07] MEDS: HYDROmorphone HCL INJ (*CRX) 1 MG/ML SYR 0.5 MG IV PUSH (08:46)
[2021-04-07] MEDS: ONDANSETRON INJ 4 MG/2 ML VIAL IV PUSH (08:48)
[2021-04-07] MEDS: SODIUM CHLORIDE 0.9% IV 1,000 ML 999 ML IV CONT (08:48)
--- NOTE | 2021-04-07 09:29 | PC.NURSE ---
PT UNABLE TO PRODUCE URINE SAMPLE, REFUSING CATH
--- NOTE | 2021-04-07 10:09 | PC.NURSE ---
pT AMBULATORY TO BATHROOM AT THIS TIME, ATTEMPTING UA.
[2021-04-07 10:37] LABS: Add Urine Microscopic? YES; Appearance Urine Clear (Clear); Bilirubin Urine Negative (Negative); Blood Urine 2+ (Negative); Color Urine Yellow (Yellow); Glucose Urine UA Negative (Negative); Hyaline Casts Urine 20-29 /lpf; Ketones Urine Trace mg/dL (Negative); Leukocyte Esterase Ur Negative LEU/UL (Negative); Mucus Urine Rare /lpf; Nitrate Urine Negative (Negative); Protein Urine Negative (Negative); Urobilinogen Urine Negative mg/dL (<2.0); WBC Urine 0-3 /hpf
[2021-04-07 10:41] LABS: Specific Grav Ur > 1.060 (1.001-1.035)
== END 2021-04-07 11:02 | disposition home or self-care (01) ==
PROVIDERS: Emergency Provider Emergency Medicine
DX: R19.7 Diarrhea, unspecified (principal); R53.1 Weakness; E86.0 Dehydration; F32.9 Major depressive disorder, single episode, unspecified; Z86.718 Personal history of other venous thrombosis and embolism; Z85.528 Personal history of other malignant neoplasm of kidney
CPT/HCPCS: 36415; 71046; 74177; 80053; 81001; 85025; 93005; 96361; 96374; 96375; 99284; J1170; J2405; J7030; Q9967

== ENCOUNTER 2021-04-28 16:49 | Observation (INO) | payer OTHER, BC, SELFPAY ==
--- NOTE | ~2021-04-28 | CT_ITS ---
EXAMINATION: CT abdomen pelvis w con DATE: 04/28/2021 17:57 INDICATION: Abdominal pain. TECHNIQUE: Computed tomography (CT) of the abdomen and pelvis was performed with 100 mL Omnipaque-350 intravenous contrast. Automated exposure control and iterative reconstruction technique were employe d. The dose-length product was 1338.20 mGy-cm. COMPARISON: 04/07/2021 FINDINGS: Mild dependent atelectasis in the bilateral lower lobes. Heart size is normal. No pericardial or pleu ral effusion. Mild atherosclerotic coronary artery calcification. Liver, gallbladder, pancreas and bi lateral adrenal glands are normal. Spleen is absent. There is also been prior right nephrectomy with surgical clips at the residual stump of the right renal vein. 2 mm nonobstructing stone at the lower pole of the left kidney. 11 mm left renal cyst. There is mild colonic diverticulosis with a sigmoid p redominance. There is no adjacent inflammatory change to suggest diverticulitis. No bowel obstruction . Appendix is not visualized. Interval decrease in the prior minimal wall thickening at the cecum con sistent with improving focal colitis. Again seen is mild diffuse bladder wall thickening which could be related to chronic outlet obstruction from the enlarged prostate or cystitis either acute or chron ic. Small fat-containing right inguinal hernia. No free intraperitoneal gas or fluid. No pathological ly enlarged abdominal or pelvic lymphadenopathy. Mild thoracolumbar spondylosis. IMPRESSION: 1. 2 mm nonobstructing left renal stone. 2. Unchanged diffuse mild bladder wall thickening which could be related to chronic outlet obstructio n from the enlarged prostate or cystitis either acute or chronic. Reviewed, dictated and finalized at location A. IMPRESSION: 1. 2 mm nonobstructing left renal stone. 2. Unchanged diffuse mild bladder wall thickening which could be related to chr onic outlet obstruction from the enlarged prostate or cystitis either acute or chronic.
--- NOTE | ~2021-04-28 | US_ITS ---
EXAMINATION: US abdomen limited DATE: 04/28/2021 17:13 INDICATION: Abdominal pain TECHNIQUE: Multiple grayscale and Doppler ultrasound images of the abdomen were obtained. COMPARISON: CT dated 04/07/2021 FINDINGS: Is portions of the body of the pancreas is normal in appearance. The majority of the pancreas includi ng the head and tail are obscured. Liver has normal echogenicity and contour, with a smooth surface. No liver lesion identified. No intrahepatic biliary duct dilation suspected. Portal venous flow was s een in the hepatopetal, normal direction and has normal Doppler waveform. The visualized hepatic port ion of the inferior vena cava is normal. The gallbladder is normal in appearance. There is no cholel ithiasis. The common bile duct measures 3-4 mm, which is normal. Sonographic Long sign was reported as negative by the retail associate. IMPRESSION: 1. Normal right upper quadrant ultrasound. Reviewed, dictated and finalized at location A.
[2021-04-28 14:41] VITALS: BP 139/76; PULSE 96; RESP 16; TEMP 36.8; O2SAT 96
[2021-04-28 15:13] LABS: Basophils Absolute Auto 0.1 K/mm3 (0.0-0.1); Basophils Percent Auto 0.4 % (0.2-1.2); Eosinophils Percent Auto 0.2 % (0-4.4); Hematocrit 40.8 % (42.0-52.0); Hemoglobin 13.4 g/dL (14.0-18.0); Immature Granulocyte Absolute 0.04 K/mm3 (0.00-0.031); Immature Granulocyte Percent A 0.3 % (0-0.5); Lymphocytes Percent Auto 40.1 % (18.3-44.2); Mean Corpuscular HGB Conc 32.8 g/dl (32-36); Mean Corpuscular Hemoglobin 30.5 pg (26-34); Mean Corpuscular Volume 92.7 fl (80-100); Mean Platelet Volume 9.2 fl (7.4-10.4); Monocytes Percent Auto 6.6 % (2.6-8.5); Neutrophils Absolute Auto 7.6 K/mm3 (1.3-6.7); Neutrophils Percent Auto 52.4 % (45.5-73.1); Platelet Count Result 661 k/mm3 (150-375); White Blood Count 14.5 K/mm3 (4.5-10.0)
[2021-04-28 15:26] LABS: Acanthocytes 1+ (NORMAL); Anisocytosis 1+ (NORMAL); Platelet Estimate Increased (Adequate); Poikilocytosis 1+ (NORMAL)
[2021-04-28 15:34] LABS: Alanine Aminotransferase 141 U/L (4-50); Albumin Level 3.7 g/dL (3.5-5.1); Alkaline Phosphatase 92 U/L (38-126); Anion Gap 7 mmol/L (8-16); Aspartate Amino Transferase 192 U/L (17-59); Bilirubin,Total 0.9 mg/dL (0.2-1.3); Blood Urea Nitrogen 17 mg/dL (9-20); Carbon Dioxide 25 mmol/L (22-30); Chloride 106 mmol/L (98-107); Estimated CRCL calculation 101 ml/min; Estimated Glomerular Filt Rate > 60; Glucose 153 mg/dL (65-110); Potassium 3.6 mmol/L (3.4-5.0); Sodium 138 mmol/L (137-145)
[2021-04-28 15:44] LABS: Lipase 227 U/L (23-300)
[2021-04-28 16:46] VITALS: PULSE 88; RESP 20; O2SAT 96
--- NOTE | 2021-04-28 16:48 | ED.GENADULT ---
HPI - General Adult General Chief complaint: Abdominal Pain Stated complaint: abd pain Source: RN notes reviewed History of Present Illness HPI narrative: Patient presents to emergency department from home for abdominal pain. Patient states pain began 2 days ago. Pain is located in the upper abdomen and is described as sharp and stabbing states the pain comes in waves and last for approximately 30 minutes at a time associate with nausea vomiting x2 today. Denies any fevers or chills, chest pain shortness of breath diarrhea or any other symptoms. Patient states he does have renal cell carcinoma is currently on immunotherapy at the [facility] Related Data Home Medications Medication Instructions Recorded Confirmed etodolac 400 mg PO BID 04/24/20 04/24/20 fluoxetine 60 mg PO DAILY 04/24/20 04/24/20 methocarbamol 500 mg PO HS 04/24/20 04/24/20 trazodone 100 mg PO HS 04/24/20 04/24/20 amlodipine 5 mg PO DAILY 05/21/20 apixaban [Eliquis] 5 mg PO BID 05/21/20 docusate sodium 100 mg PO DAILY 05/21/20 oxycodone 10 mg PO Q12H 05/21/20 Allergies Allergy/AdvReac Type Severity Reaction Status Date / Time No Known Allergies Allergy Mild Verified 04/28/21 16:47 Review of Systems Review of Systems: Gen.: Denies fevers or chills ENT: Denies congestion Respiratory: Denies shortness of breath or cough CV: Denies chest pain or palpitations GI: See HPI denies burning, urgency, frequency or hematuria Musculoskeletal: Denies back pain or muscle pain Neuro: Denies numbness, tingling, weakness or focal weakness Skin: Denies rash Except as documented, all other systems reviewed and negative [facility] Past Medical History Medical History (Updated 04/28/21 @ 20:29 by Kulwant Luz DO) Depression DVT (deep venous thrombosis) Renal cell carcinoma Surgical History Surgical History H/O neck surgery History of appendectomy Social History Social History Smoking status: Never smoker Gender identity (if verbalized by the patient): Male Exam Narrative: APPEARANCE: No acute distress, nontoxic, resting in bed HEENT: Normocephalic, atraumatic, OMM RESPIRATORY: No respiratory distress, clear to auscultation bilaterally with no rhonchi wheezing or rales CARDIOVASCULAR: RRR s murmur ABDOMINAL: Soft nondistended tender palpation right upper quadrant no tenderness left upper quadrant, left lower quadrant and right lower quadrant no rebound or guarding MUSCULOSKELETAl: Moves all extremities. No clubbing, cyanosis or edema. NEURO: Awake and alert. Following commands, speech normal, no focal deficits SKIN:: Warm, dry. Normal Color PSYCHIATRIC: Normal affect/mood Course Course Emergency Course: Reviewed old records Patient given Tylenol and morphine in the ED continues to have abdominal pain with tenderness in the right upper quadrant the patient is on oxycodone and morphine at home for history of renal cell carcinoma with bony metastasis Discussed with Dr. Haskins presentation work-up agrees with consult this time recommends no antibiotics Discussed with ELEN Durham for Dr. Malave presentation work-up agrees with admission at this time Discussed with patient and family results of workup and diagnosis. Discussed need for admission. Patient and family understand and agree to current treatment plan Vital Signs Vital signs: Vital Signs Temperature 98.2 F 04/28/21 14:41 Pulse Rate 96 04/28/21 14:41 Respiratory Rate 16 04/28/21 14:41 Blood Pressure 139/76 04/28/21 14:41 Pulse Oximetry 96 04/28/21 14:41 Temperature 98.2 F 04/28/21 14:41 Pulse Rate 88 04/28/21 16:46 Respiratory Rate 20 04/28/21 16:46 Blood Pressure 139/76 04/28/21 14:41 Pulse Oximetry 96 04/28/21 16:46 Medical Decision Making Vital Signs Vital Signs: Vital Signs Temperature 98.2 F 04/28/21 14:41 Pulse Rate 96
[2021-04-28 16:49] LABS: Add Urine Microscopic? YES; Appearance Urine Clear (Clear); Bilirubin Urine Negative (Negative); Blood Urine Negative (Negative); Calcium Oxalate Crystals Urine Present /hpf; Color Urine Yellow (Yellow); Glucose Urine UA Negative (Negative); Ketones Urine Negative (Negative); Leukocyte Esterase Ur Negative LEU/UL (Negative); Nitrate Urine Negative (Negative); Protein Urine 1+ mg/dL (Negative); RBC Urine 0-2 /hpf (0-2); Specific Grav Ur 1.027 (1.001-1.035); WBC Urine 0-3 /hpf
--- NOTE | 2021-04-28 16:51 | PC.NURSE ---
called lab, ulysses, asked to add on PT INR, and PTT
--- NOTE | 2021-04-28 16:53 | PC.NURSE ---
Pt to ultrasound.
--- NOTE | 2021-04-28 17:17 | PC.NURSE ---
called elal, again, Sunny, asked about delay on PT INR, PTT said they'd get it going
[2021-04-28] MEDS: SODIUM CHLORIDE 0.9% IV 1,000 ML 999 ML IV CONT (17:30)
[2021-04-28 17:32] LABS: INR 1.1; Prothrombin Time 14.3 Seconds (11.1-14.7)
[2021-04-28 17:33] LABS: Partial Thromboplastin Time 28.2 SECONDS (22.3-36.8)
[2021-04-28] MEDS: MORPHINE SULFATE (*CRX) 4 MG/ML INJ IV PUSH (18:51)
--- NOTE | 2021-04-28 19:06 | PC.NURSE ---
report to ry magaña
[2021-04-28 19:47] LABS: Lactic Acid Reflex 1.2 mmol/L (0.7-2.1)
[2021-04-28 21:45] VITALS: BP 147/82; PULSE 76; RESP 18; TEMP 36.7; O2SAT 97; BMI 28.5
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
--- NOTE | 2021-04-28 23:28 | ADMGEN ---
This patient, Real Pimentel, was admitted to 3 [facility] Surg Room 314-02. Patient/family oriented to hospital policies and general routines including ID bracelet, bed and alarms, visiting hours, pain management, procedures, bathroom and other care routines, personal items, smoking policy, room service/diet, and visiting hours. Information on how to activate the Rapid Response Team has been discussed. Patient/Family are encouraged to report perceived risks to care and to ask questions if they do not understand what they are told or what they should do.
[2021-04-28] MEDS: APIXABAN 5 MG TABLET PO (23:57)
[2021-04-28] MEDS: SODIUM CHLORIDE 0.9% IV 1,000 ML 125 ML IV CONT (23:57)
[2021-04-28] MEDS: traZODone HCL 50 MG TABLET 100 MG PO (23:57)
[2021-04-29 06:00] VITALS: BP 134/52; PULSE 64; RESP 18; TEMP 36.7; O2SAT 91
[2021-04-29] MEDS: LEVOTHYROXINE SODIUM 150 MCG TABLET PO (06:35)
[2021-04-29 07:21] LABS: Basophils Absolute Auto 0.1 K/mm3 (0.0-0.1); Basophils Percent Auto 0.6 % (0.2-1.2); Eosinophils Absolute Auto 0.2 K/mm3 (0-0.3); Eosinophils Percent Auto 1.8 % (0-4.4); Hematocrit 40.5 % (42.0-52.0); Hemoglobin 13.2 g/dL (14.0-18.0); Immature Granulocyte Absolute 0.02 K/mm3 (0.00-0.031); Immature Granulocyte Percent A 0.2 % (0-0.5); Lymphocytes Absolute Auto 6.48 K/mm3 (0.9-3.2); Lymphocytes Percent Auto 56.8 % (18.3-44.2); Mean Corpuscular HGB Conc 32.6 g/dl (32-36); Mean Corpuscular Hemoglobin 30.4 pg (26-34); Mean Corpuscular Volume 93.3 fl (80-100); Mean Platelet Volume 9.1 fl (7.4-10.4); Monocytes Absolute Auto 1.3 K/mm3 (0.1-0.6); Monocytes Percent Auto 11.3 % (2.6-8.5); Neutrophils Absolute Auto 3.3 K/mm3 (1.3-6.7); Neutrophils Percent Auto 29.3 % (45.5-73.1); Platelet Count Result 599 k/mm3 (150-375); Red Blood Count 4.34 M/mm3 (4.6-6.20); Red Cell Distribution Width 19.1 % (11.5-14.5); White Blood Count 11.4 K/mm3 (4.5-10.0)
[2021-04-29 07:50] LABS: Alanine Aminotransferase 204 U/L (4-50); Albumin Level 3.2 g/dL (3.5-5.1); Alkaline Phosphatase 88 U/L (38-126); Anion Gap 5 mmol/L (8-16); Aspartate Amino Transferase 178 U/L (17-59); Bilirubin,Total 0.5 mg/dL (0.2-1.3); Blood Urea Nitrogen 9 mg/dL (9-20); Calcium 8.9 mg/dL (8.4-10.2); Carbon Dioxide 26 mmol/L (22-30); Chloride 103 mmol/L (98-107); Estimated CRCL calculation 131 ml/min; Estimated Glomerular Filt Rate > 60; Glucose 73 mg/dL (65-110); Lipase 181 U/L (23-300); Potassium 3.6 mmol/L (3.4-5.0); Sodium 134 mmol/L (137-145)
[2021-04-29 09:17] LABS: Thyroid Stimulating Hormone Reflex 0.646 uIU/mL (0.465-4.68)
[2021-04-29 09:18] LABS: Hepatitis B Surface Antigen Negative (Negative)
[2021-04-29 09:23] LABS: HAV RESULT Negative (Negative); Hepatitis B Core IgM Result Negative (Negative)
[2021-04-29] MEDS: SODIUM CHLORIDE 0.9% IV 1,000 ML 125 ML IV CONT ×2 (09:27→18:03)
[2021-04-29] MEDS: APIXABAN 5 MG TABLET PO ×2 (09:28→20:39)
[2021-04-29] MEDS: amLODIPine BESYLATE 5 MG TABLET 10 MG PO (09:29)
[2021-04-29] MEDS: HYDROCORTISONE 10 MG TABLET 40 MG PO (09:30)
[2021-04-29] MEDS: FLUoxetine HCL 20 MG CAPSULE 60 MG PO (09:30)
[2021-04-29 09:35] LABS: Hepatitis C Virus Antibody Negative (Negative)
--- NOTE | 2021-04-29 10:15 | PM.CNGS ---
Assessment and Plan Assessment and plan (1) Upper abdominal pain: Code(s): R10.10 - Upper abdominal pain, unspecified Status: Acute Assessment and Plan: Patient presenting with upper abdominal pain, mostly in the epigastric area. Clinically, his history and exam do correlate with what you typically expect with gallbladder disease. His onset of upper abdominal pain is shortly after eating high fat meals with associated nausea and vomiting. He did have an elevated WBC and slightly elevated AST/ALT initially. Although, his imaging (CT scan and ultrasound) are completely negative without any abnormalities of the gallbladder or any evidence of cholelithiasis. His white count has come down, he is afebrile, and his symptoms have nearly all resolved. He only has very minimal epigastric abdominal pain and is actually feeling hungry. I have discussed the case with Dr. Haskins. We will go ahead and try advancing his diet to a low fat diet. If he is able to tolerate this, then we would be okay with discharge when okay with all other services and we will have him follow-up with Dr. Haskins as an outpatient in 1 week. We will plan to schedule an outpatient HIDA scan to further evaluate the gallbladder being the etiology of his symptoms. In the meantime, he should follow a low fat diet after discharge and I discussed this plan with the patient as well. Thank you for allowing us to see the patient in consultation and we will continue to follow along with you. (2) Elevated LFTs: Code(s): R79.89 - Other specified abnormal findings of blood chemistry Status: Acute Assessment and Plan: AST and ALT slightly elevated on admission, same on this morning's labs. Total bilirubin and alk phos normal. Unclear etiology. Hepatitis panel negative. Monitor labs. See plan above. (3) Nausea and vomiting: Code(s): R11.2 - Nausea with vomiting, unspecified Status: Acute Assessment and Plan: Resolved. Continue antiemetics as neeeded. See plan above. (4) Chronic anticoagulation: Code(s): Z79.01 - extermination inspector (current) use of anticoagulants Status: Acute Assessment and Plan: Okay to resume anticoagulation. (5) Adrenal insufficiency: Code(s): E27.40 - Unspecified adrenocortical insufficiency Status: Acute Assessment and Plan: Apparently recently diagnosed at the [facility]. Currently on hydrocortisone. Management per Hospitalist. (6) Chronic back pain: Code(s): M54.9 - Dorsalgia, unspecified; G89.29 - Other chronic pain Status: Acute Assessment and Plan: Taking ER Oxycodone for the past year due to chronic back pain following spinal surgery to remove a tumor that was around his spine. (7) Hypertension: Code(s): I10 - Essential (primary) hypertension Status: Acute (8) Hypothyroidism: Code(s): E03.9 - Hypothyroidism, unspecified Status: Acute Additional Plan I have discussed the patient's case and plan of care with Dr. Haskins. History of Present Illness Consult details Consult date: 04/29/21 Reason for consult: other (RUQ abdominal pain) Requesting physician: Kulwant Luz DO Narrative: This is a 60-year-old male with a history of renal cell cancer status post nephrectomy in April of 2020 and hypertension, who presented to the emergency department with complaints of epigastric abdominal pain and vomiting. The patient reports 1st noticing symptoms Monday evening, 3 days ago, about 2 hours after eating chicken fettuccine Naun for dinner. He reports epigastric abdominal pain that lasted for about 30 minutes, and spontaneously resolved. The following day, he had eaten a light breakfast and lunch without any symptoms. He then ate fettuccine leftovers for dinner, and his abdominal pain came back again about 2 hours after eating. Similar symptoms with resolution of the pain after about 30 minutes. Then, yesterday he woke up feeling well. He then ate a
--- NOTE | 2021-04-29 12:14 | PM.IMPN ---
Progress Note: A&P Assessment and Plan (1) Abdominal pain: Code(s): R10.9 - Unspecified abdominal pain Status: Acute (2) Elevated LFTs: Code(s): R79.89 - Other specified abnormal findings of blood chemistry Status: Acute (3) Hypothyroidism: Code(s): E03.9 - Hypothyroidism, unspecified Status: Acute (4) Adrenal insufficiency: Code(s): E27.40 - Unspecified adrenocortical insufficiency Status: Acute (5) Chronic anticoagulation: Code(s): Z79.01 - [employer] vice president [employer] (ex ) (current) use of anticoagulants Status: Acute (6) Chronic back pain: Code(s): M54.9 - Dorsalgia, unspecified; G89.29 - Other chronic pain Status: Acute Additional Plan -suspicious for gallbladder disease -CT of the abdomen and pelvis as well as right upper quadrant ultrasound were unremarkable - Lipase is within normal limits - LFTs are elevated hepatocellular pattern, the etiology of which is not entirely clear at this time - hepatitis panel neg - GS followed, recommendations appreciated - Patient reports being hospitalized within the last week or so at the [facility] with what sounds like adrenal insufficiency or adrenal fatigue which could be causing some abdominal discomfort, medical records pending Subjective Date/time seen: 04/29/21 12:14 Interval history: pt seen and evaluated; no acute events overnight; labs and diagnostic reports reviewed; abdominal pain improved Review of Systems Review of Systems: All systems reviewed & are unremarkable except as noted in HPI and below Exam Const: General: no acute distress, alert and awake Orientation/consciousness: patient oriented x3 HENMT: Head: normocephalic and atraumatic Ears: hearing grossly normal bilaterally and external ears normal Face and sinus: face symmetric Mouth: Yes Normal oral and palatal mucosa present Eyes: Pupils: Equal, round and reactive pupils present EOM: EOMs intact bilaterally Neck: Neck: full ROM, trachea midline and no JVD Thyroid: thyroid normal Chest: Chest palpation & inspection: normal inspection of the chest Resp: Effort & Inspection: normal respiratory effort Auscultation: clear to auscultation bilaterally Cardio: Jugular venous distension: no JVD Rate: regular rate Rhythm: regular rhythm Heart sounds: S1 normal heart sound present and S2 normal heart sound present GI: Inspection: normal to inspection GI Palp: Yes Soft to palpation Percussion: Yes normal to percussion Auscultation: normal bowel sounds : General: Yes no CVA tenderness Back/Spine/Pelvis: Back: no CVA tenderness Skin: General skin exam: normal color Rashes: no rashes Neuro: General: patient oriented x3 and CN's II-XI intact bilaterally Cranial nerves: Yes Equal, round and reactive pupils present Speech: normal speech Psych: Appearance: grossly normal Affect: normal affect Judgement: Good judgement present (Psych) Objective Data Vital Signs Vital Signs: Vital Signs - 24 hr 04/28/21 14:41 04/28/21 16:46 04/28/21 21:45 Temperature 36.8 C 36.7 C Pulse Rate 96 88 76 Respiratory Rate 16 20 18 Blood Pressure 139/76 147/82 H Pulse Oximetry 96 96 97 04/29/21 06:00 Temperature 36.7 C Pulse Rate 64 Respiratory Rate 18 Blood Pressure 134/52 L Pulse Oximetry 91 Intake/Output Intake/Output: Intake & Output 04/26/21 04/27/21 04/28/21 04/29/21 23:59 23:59 23:59 23:59 Intake Total 1100 1000 Balance 1100 1000 Meds/Results Medications: Active Medications Generic Name Dose Route Start Last Admin Trade Name Freq PRN Reason Stop Dose Admin Amlodipine Besylate 10 mg 04/29/21 09:00 04/29/21 09:29 Amlodipine Besylate 5 Mg Tablet PO 10 mg DAILY TRENT Administration Apixaban 5 mg 04/28/21 23:20 04/29/21 09:28 Apixaban 5 Mg Tablet PO 5 mg Q12HR TRENT Administration Bupropion HCl 100 mg 04/29/21 09:00 Bupropion Hcl Sr (12hr) 100 Mg Tabcr PO DAILY TRENT Docusate Sodium 100 mg 04/29
[2021-04-29 14:00] VITALS: BP 147/77; PULSE 93; RESP 16; TEMP 37.1; O2SAT 95
[2021-04-29] MEDS: oxyCODONE HCL (*CRX) 5 MG TAB IR 10 MG PO (18:03)
[2021-04-29] MEDS: buPROPion HCL SR (12HR) 100 MG TABCR PO (18:04)
[2021-04-29] MEDS: DOCUSATE SODIUM 100 MG CAPSULE PO (18:05)
[2021-04-29] MEDS: HYDROCORTISONE 10 MG TABLET PO (18:06)
--- NOTE | 2021-04-29 19:53 | PC.NURSE ---
Pt medications sent home with . rs [id number]
[2021-04-29] MEDS: traZODone HCL 50 MG TABLET 100 MG PO (20:39)
[2021-04-29 22:00] VITALS: BP 136/83; PULSE 83; RESP 18; TEMP 36.4; O2SAT 96
[2021-04-30] MEDS: oxyCODONE HCL (*CRX) 5 MG TAB IR 10 MG PO (00:22)
[2021-04-30] MEDS: SODIUM CHLORIDE 0.9% IV 1,000 ML 125 ML IV CONT ×2 (02:12→10:37)
[2021-04-30] MEDS: LEVOTHYROXINE SODIUM 150 MCG TABLET PO (05:39)
[2021-04-30 06:00] VITALS: BP 149/86; PULSE 69; RESP 18; TEMP 36.3; O2SAT 95
[2021-04-30] MEDS: APIXABAN 5 MG TABLET PO (08:09)
[2021-04-30] MEDS: amLODIPine BESYLATE 5 MG TABLET 10 MG PO (08:09)
[2021-04-30] MEDS: buPROPion HCL SR (12HR) 100 MG TABCR PO (08:09)
[2021-04-30] MEDS: DOCUSATE SODIUM 100 MG CAPSULE PO (08:10)
[2021-04-30] MEDS: HYDROCORTISONE 10 MG TABLET 40 MG PO (08:10)
[2021-04-30] MEDS: FLUoxetine HCL 20 MG CAPSULE 60 MG PO (08:10)
[2021-04-30 14:42] VITALS: BP 128/75; PULSE 94; RESP 12; TEMP 36.9; O2SAT 97
[2021-04-30 15:33] LABS: Alanine Aminotransferase 228 U/L (4-50); Albumin Level 3.9 g/dL (3.5-5.1); Alkaline Phosphatase 123 U/L (38-126); Anion Gap 11 mmol/L (8-16); Aspartate Amino Transferase 246 U/L (17-59); Bilirubin,Total 1.6 mg/dL (0.2-1.3); Blood Urea Nitrogen 10 mg/dL (9-20); Calcium 9.5 mg/dL (8.4-10.2); Carbon Dioxide 21 mmol/L (22-30); Chloride 101 mmol/L (98-107); Estimated CRCL calculation 131 ml/min; Estimated Glomerular Filt Rate > 60; Glucose 119 mg/dL (65-110); Potassium 3.8 mmol/L (3.4-5.0); Sodium 133 mmol/L (137-145)
[2021-04-30] MEDS: HYDROCORTISONE 10 MG TABLET PO (16:32)
--- NOTE | 2021-04-30 18:21 | PM.DS ---
DS: Admitting Diagnosis Admitting Diagnosis Abdominal pain DS: Discharge Diagnosis Discharge Diagnosis (1) Abdominal pain: Code(s): R10.9 - Unspecified abdominal pain Status: Acute (2) Elevated LFTs: Code(s): R79.89 - Other specified abnormal findings of blood chemistry Status: Acute (3) Hypothyroidism: Code(s): E03.9 - Hypothyroidism, unspecified Status: Acute (4) Adrenal insufficiency: Code(s): E27.40 - Unspecified adrenocortical insufficiency Status: Acute (5) Chronic anticoagulation: Code(s): Z79.01 - detention (current) use of anticoagulants Status: Acute (6) Chronic back pain: Code(s): M54.9 - Dorsalgia, unspecified; G89.29 - Other chronic pain Status: Acute DS: Summary Hospital Course Hospital Course: Real Pimentel is a 60-year-old man with hypertension and renal cell carcinoma status post nephrectomy. He presented to the emergency department via private vehicle from home for evaluation of abdominal pain. On 04/26/2021, approximately 1 hour after eating dinner he developed sharp pain in the periumbilical/epigastric region which resolved on its own within 30 minutes. Similar symptoms recurred again on 04/27, after dinner, again lasting about 30 minutes before resolving. On 04/28, after lunch the same pain returned associated with nausea and emesis x2. He decided to be evaluated in the ED because the pain continued upwards of 3 hours. He did report and significant aggravating factors aside from the fact that it occurred after eating meals each time. He reported no significant alleviating factors. He denied any similar episodes in the past. No history of gallbladder disease, gallstones, peptic ulcers, or pancreatitis. He reported that he was hospitalized at the [facility] within the last week and half to 2 weeks with weakness and poor appetite. He was started on hydrocortisone for what sounds like adrenal insufficiency of which he has not had issues with before. He had been taking hydrocortisone as directed. His symptoms seem suspicious for gallbladder disease, however, CT of the abdomen and pelvis as well as right upper quadrant ultrasound were unremarkable. LFTs are elevated, though hepatitis panel was unremarkable. Lipase is within normal limits. His diet was advanced slowly from clears to a low fat diet. He is tolerating food without any abdominal pain, nausea or vomiting. He is stable for discharge and is scheduled to follow up with Dr. Haskins in 1 week and will undergo HIDA scan. He has been advised to follow up with his PCP within 2 weeks. Time Spent with Patient Time attestation: Total time spent providing and/or coordinating discharge services:45 Time spent: Greater than 30 minutes Exam Const: General: no acute distress, alert and awake Orientation/consciousness: patient oriented x3 HENMT: Head: normocephalic and atraumatic Ears: hearing grossly normal bilaterally and external ears normal Face and sinus: face symmetric Mouth: Yes Normal oral and palatal mucosa present Eyes: Pupils: Equal, round and reactive pupils present EOM: EOMs intact bilaterally Neck: Neck: full ROM, trachea midline and no JVD Thyroid: thyroid normal Chest: Chest palpation & inspection: normal inspection of the chest Resp: Effort & Inspection: normal respiratory effort Auscultation: clear to auscultation bilaterally Cardio: Jugular venous distension: no JVD Rate: regular rate Rhythm: regular rhythm Heart sounds: S1 normal heart sound present and S2 normal heart sound present GI: Inspection: normal to inspection Auscultation: normal bowel sounds : General: Yes no CVA tenderness Back/Spine/Pelvis: Back: no CVA tenderness Skin: General skin exam: normal color Rashes: no rashes Neuro: General: patient oriented x3 and CN's II-XI intact bilaterally Cranial nerves: Yes Equal, round and reactive pupils present Speech: normal speech Psych: Appearance: grossly normal Affec
== END 2021-04-30 17:15 | disposition home or self-care (01) ==
LOC: ANHED 20:29 → ANH3MEDSUR 04-30 09:42
PROVIDERS: Nurse Practitioner Adult Health; Physician Assistant; Admitting Provider Hospitalist; Emergency Provider Emergency Medicine; Visit Provider Internal Medicine
DX: R10.11 Right upper quadrant pain (principal); R10.13 Epigastric pain; R79.89 Other specified abnormal findings of blood chemistry; E27.40 Unspecified adrenocortical insufficiency; R11.2 Nausea with vomiting, unspecified; F32.9 Major depressive disorder, single episode, unspecified; N20.0 Calculus of kidney; E03.9 Hypothyroidism, unspecified; M54.9 Dorsalgia, unspecified; G89.29 Other chronic pain; Z85.528 Personal history of other malignant neoplasm of kidney; Z90.5 Acquired absence of kidney; Z79.01 Long term (current) use of anticoagulants; Z79.891 Long term (current) use of opiate analgesic; Z86.718 Personal history of other venous thrombosis and embolism; Z92.21 Personal history of antineoplastic chemotherapy
CPT/HCPCS: 36415; 74177; 76705; 80053; 80074; 81001; 83605; 83690; 84443; 85025; 85610; 85730; 87040; 96361; 96374; 96375; 99285; A9270; G0378; J0131; J2270; J7030; Q9967

== ENCOUNTER 2021-11-04 07:31 | Inpatient (IN) | payer BC, SELFPAY ==
[2021-11-04] VITALS (67 sets, daily range): BP systolic 79–139; BP diastolic 55–86; PULSE 77–101; RESP 11–28; TEMP 36.6–38; O2SAT 88–95
--- NOTE | ~2021-11-04 | XR_ITS ---
XR chest 2V DATE: 11/04/2021 08:32 INDICATION: Neck, upper back pain for one day TECHNIQUE: AP and lateral views COMPARISON: 04/07/2021 PA and lateral chest FINDINGS: Normal heart size. Is aortic arch calcification. There is chronic moderate elevation of the right leaf of the diaphragm. There is mild patchy infiltrate and/or atelectasis in both lower lung zones. Minimal blunting of the costophrenic angles might represent slight pleural effusions. No pneumothorax. Diffuse osteopenia. Pedicle screws and rods are noted along the lower cervical and upper thoracic spine. IMPRESSION: Mild patchy infiltrate and/or atelectasis in both lower lungs Reviewed, dictated and finalized at location B. R OPERATOR
--- NOTE | ~2021-11-04 | CT_ITS ---
EXAMINATION: CT cervical spine wo con DATE: 11/04/2021 08:27 INDICATION: Neck pain TECHNIQUE: Computed tomography (CT) of the cervical spine was performed without intravenous contrast. The dose-length product (DLP) was 456.76 mGy-cm. Automated exposure control and iterative reconstruc tion technique were employed. COMPARISON: None FINDINGS: No cervical spine fracture is identified. Cervical vertebral body alignment is normal. The odontoid is intact. There is moderate loss of intervertebral disc space height at C5-6. There are par tially imaged changes of posterior cervicothoracic fusion. There is a pathologic fracture of T2. IMPRESSION: 1. Moderate cervical spondylosis without acute findings. 2. Pathologic fracture of T2. Reviewed, dictated and finalized at location A. RGRADUATE INTERNSHIP
--- NOTE | ~2021-11-04 | CT_ITS ---
EXAMINATION: CT thoracic spine wo con DATE: 11/04/2021 08:27 INDICATION: One day of neck/upper back pain TECHNIQUE: Computed tomography (CT) of the thoracic spine was performed without intravenous contrast. Automated exposure control and iterative reconstruction technique were employed. The dose-length pro duct was 1457.23 mGy-cm. COMPARISON: 04/24/2020 FINDINGS: Interval resection of a prior expansile lytic likely metastatic mass which was centered at the now ab sent spinous process of the T2. This includes osteotomies of portion of the posterior elements of T2 along the margins of the prior involvement bone. There has also been a prior partial T1 laminectomy. There is some new sclerosis associated with the previously exclusively lytic involvement at the right posterior aspect of the T2 vertebral body consistent with likely response to treatment of the prior malignancy. Assessment for residual or recurrent soft tissue portion of the mass is limited by the ab sence of intravenous contrast and the postoperative changes along with the prominent streak artifact from a posterior spinal fusion which extends from C7 through T4 with bilateral vertical rods and bila teral C7 lateral mass screws and vertical screws at T1, T3 and T4. The posterior aspect of the T4 spi nous process is also absent with no discernible lytic or blastic bone lesion at this location on the prior study and would favor a bone graft harvest site over a new lytic bone lesion. Correlate with cerna rgical history. There is a new small mixed lytic and sclerotic lesion at the left posterior aspect of the T5 vertebral body also suspicious for response to treatment of a bone metastasis. Alignment is normal. Minimal anterior wedging at T7, T8 and T12. No acute fractures identified. Mild to moderate disc height loss throughout the cervical spine greatest at the mid cervical spine. There is also multifocal mild to moderate bilateral facet osteoarthritis greatest in the upper thoracic spi ne. No evident central canal stenosis. There is no neural foraminal stenosis at multiple levels on trae th the left and right, moderate severity on the right at T10-T11 and otherwise mild. There is depende nt atelectasis in both lungs. No pleural effusion. Thoracic aorta is normal in caliber. No pathologic ally enlarged thoracic lymphadenopathy in the bilateral clyde or visualized portion of the mediastinum . Status post right nephrectomy for reported renal cell carcinoma which presumably represents the [facility] rodolfo malignancy. IMPRESSION: 1. Interval resection of a prior large lytic mass, presumably resected renal cell carcinoma, at the T 2 spinous processes and subsequent stabilization with instrumented C7-T4 posterior spinal fusion. 2. Sclerosis suggesting response to treatment of metastatic disease at a prior lytic lesion at the po sterior T2 vertebral body as well as at a new lesion at the T5 vertebral body. 3. Moderate thoracic spondylosis. No acute osseous abnormality. 4. Status post right nephrectomy presumably for reported renal cell carcinoma. Reviewed, dictated and finalized at location A. CTURAL WORKER IMPRESSION: 1. Interval resection of a prior large lytic mass, presumably resected renal ce ll carcinoma, at the T2 spinous processes and subsequent stabilization with ins trumented C7-T4 posterior spinal fusion. 2. Sclerosis suggesting response to treatment of metastatic disease at a prior lytic lesion at the posterior T2 vertebral body as well as at a new lesion at t he T5 vertebral body. 3. Moderate thoracic spondylosis. No acute osseous abnormality. 4. Status post right nephrectomy presumably for reported renal cell carcinoma.
--- NOTE | ~2021-11-04 | CT_ITS ---
EXAMINATION: CTA chest PE protocol DATE: 11/04/2021 12:06 INDICATION: Hypoxia TECHNIQUE: Computed tomography (CT) pulmonary angiogram of the chest was performed with 100 mL Omnipa que-350 intravenous contrast. Additional 3D reconstructions utilizing coronal maximum intensity proje ction (MIP) were performed. The dose-length product was 798.12 mGy-cm. COMPARISON: 05/04/2020 FINDINGS: Good contrast opacification of the pulmonary arteries. There is moderate streak artifact from dense c ontrast in the left brachiocephalic vein, superior vena cava and right atrium. Moderate to severe res piratory motion artifact most prominent at the bilateral lower lung zones where it decreases sensitiv ity in the segmental pulmonary arteries and renders evaluation in the subsegmental pulmonary arteries essentially nondiagnostic. Mild decrease sensitivity in the smaller pulmonary arteries in the mid an d upper lung zones. No definite pulmonary embolism. Small lung volumes with bilateral atelectasis mos t prominent at the lung bases and to a lesser degree in the dependent upper lobes. No pulmonary edema , pneumonia or pleural effusion. Heart size is normal. No pericardial effusion. Thoracic aorta is nor mal in caliber with no dissection. No pathologically enlarged thoracic lymphadenopathy. Status post r ight nephrectomy for reported renal cell carcinoma. Postoperative changes at the cervicothoracic junc tion including a posterior spinal fusion. There are also a couple small sclerotic lesions at T2 and T 5 suspicious for treated metastatic disease. See separate thoracic spine CT report for further detail . IMPRESSION: 1. No definite pulmonary embolism. Sensitivity decreased in the segmental and subsegmental pulmonary arteries most severely in the lower lung zones where assessment is essentially nondiagnostic due to l arge amount of motion artifact. 2. Small lung volumes with dependent and basilar atelectasis in both lungs. 3. A couple likely metastatic sclerotic bone lesions at T2 and T5 along with postoperative changes an d posterior spinal fusion at the cervicothoracic junction. See separate thoracic spine CT report for further detail. 4. Status post right nephrectomy reportedly for renal cell carcinoma. Reviewed, dictated and finalized at location [facility] IMPRESSION: 1. No definite pulmonary embolism. Sensitivity decreased in the segmental and s ubsegmental pulmonary arteries most severely in the lower lung zones where asse ssment is essentially nondiagnostic due to large amount of motion artifact. 2. Small lung volumes with dependent and basilar atelectasis in both lungs. 3. A couple likely metastatic sclerotic bone lesions at T2 and T5 along with po stoperative changes and posterior spinal fusion at the cervicothoracic junction . See separate thoracic spine CT report for further detail. 4. Status post right nephrectomy reportedly for renal cell carcinoma.
--- NOTE | 2021-11-04 08:02 | ECG_ITS ---
Measurements Intervals [place] Rate: 99 P: 26 UT: 168 QRS: 8 QRSD: 93 T: 13 QT: 323 QTc: 414 Interpretive Statements SINUS RHYTHM CONSIDER INFERIOR INFARCT, AGE INDETERMINATE BASELINE ARTIFACT- I, II, AVR ABNORMAL ECG Electronically Signed On 11-04-2021 9:00:27 DOCK COORDINATOR by Oleksandr Naranjo D.O.
[2021-11-04] MEDS: fentaNYL CITRATE INJ (*CRX) 100 MCG/2 ML VIAL IV PUSH ×2 (08:11→15:55)
[2021-11-04] MEDS: diazePAM (*CRX) 5 MG TABLET PO ×2 (08:14→16:33)
--- NOTE | 2021-11-04 08:18 | PC.NURSE ---
Peripheral IV started in the left AC. Labs drawn and sent for processing.
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
[2021-11-04 08:25] LABS: Basophils Percent Auto 0.3 % (0.2-1.2); Eosinophils Absolute Auto 0.4 K/mm3 (0-0.3); Eosinophils Percent Auto 2.9 % (0-4.4); Hematocrit 42.8 % (42.0-52.0); Hemoglobin 13.9 g/dL (14.0-18.0); Immature Granulocyte Absolute 0.04 K/mm3 (0.00-0.031); Immature Granulocyte Percent A 0.3 % (0-0.5); Lymphocytes Absolute Auto 5.06 K/mm3 (0.9-3.2); Lymphocytes Percent Auto 37.1 % (18.3-44.2); Mean Corpuscular HGB Conc 32.5 g/dl (32-36); Mean Corpuscular Hemoglobin 32.6 pg (26-34); Mean Corpuscular Volume 100.2 fl (80-100); Monocytes Absolute Auto 1.6 K/mm3 (0.1-0.6); Monocytes Percent Auto 11.9 % (2.6-8.5); Neutrophils Absolute Auto 6.5 K/mm3 (1.3-6.7); Neutrophils Percent Auto 47.5 % (45.5-73.1); Platelet Count Result 551 k/mm3 (150-375); Red Blood Count 4.27 M/mm3 (4.6-6.20); Red Cell Distribution Width 16.2 % (11.5-14.5); White Blood Count 13.6 K/mm3 (4.5-10.0)
--- NOTE | 2021-11-04 08:32 | PC.NURSE ---
patient returned from CT and placed back on the monitor.
[2021-11-04 08:41] LABS: Alanine Aminotransferase 32 U/L (4-50); Albumin Level 3.8 g/dL (3.5-5.1); Alkaline Phosphatase 51 U/L (38-126); Anion Gap 6 mmol/L (8-16); Aspartate Amino Transferase 40 U/L (17-59); Bilirubin,Total 0.6 mg/dL (0.2-1.3); Blood Urea Nitrogen 19 mg/dL (9-20); Calcium 9.7 mg/dL (8.4-10.2); Carbon Dioxide 32 mmol/L (22-30); Chloride 101 mmol/L (98-107); Estimated CRCL calculation 83 ml/min; Estimated Glomerular Filt Rate > 60; Glucose 92 mg/dL (65-110); Potassium 4.9 mmol/L (3.4-5.0); Sodium 139 mmol/L (137-145)
[2021-11-04] MEDS: ONDANSETRON INJ 4 MG/2 ML VIAL IV PUSH (09:10)
[2021-11-04 10:45] LABS: Add Urine Microscopic? YES; Appearance Urine Clear (Clear); Bilirubin Urine Negative (Negative); Blood Urine 1+ (Negative); Color Urine Yellow (Yellow); Glucose Urine UA Negative (Negative); Ketones Urine Negative (Negative); Leukocyte Esterase Ur Negative LEU/UL (Negative); Mucus Urine Rare /lpf; Nitrate Urine Negative (Negative); Protein Urine Negative (Negative); Specific Grav Ur 1.026 (1.001-1.035); Urobilinogen Urine Negative mg/dL (<2.0); WBC Urine 0-3 /hpf
[2021-11-04 10:56] LABS: SARS-CoV-2 RNA PCR Negative
--- NOTE | 2021-11-04 11:31 | PC.NURSE ---
Patient negative for COVID and back at bedside. Call light within reach. Patient reports some improvement in pain and reports that nausea has resolved. Awaiting further orders and disposition. Will continue to monitor.
--- NOTE | 2021-11-04 11:51 | PC.NURSE ---
Patient transported to CT.
[2021-11-04 13:59] LABS: INR 1.2; Prothrombin Time 15.1 Seconds (11.1-14.7)
[2021-11-04] MEDS: SODIUM CHLORIDE 0.9% IV 1,000 ML 125 ML IV CONT ×2 (15:18→23:53)
--- NOTE | 2021-11-04 17:12 | PC.NURSE ---
Pt resting quietly in stretcher with call light within reach. VSS. Call light within reach. Meal order placed. Will continue to monitor.
--- NOTE | 2021-11-04 18:15 | PM.IMHP ---
H&P: HPI History of Present Illness Date/Time: 11/04/21 18:15 this is a 61-year-old male patient who has a history of renal cell carcinoma that has metastasized to his lumbar spine. The patient is in chronic pain. He uses narcotics but states that they have not been working for him. The patient denied any shortness of breath or cough he does not wear oxygen at home but is currently on oxygen today at 2 L per nasal cannula. The patient is complaining of severe severe neck pain. He rated it 10/10. He has not had any current injury. His white count is 13.6 and denies any recent steroid use. His H&H is 13.9 and 42.8 which is his baseline. CTA was read as a follow1. No definite pulmonary embolism. Sensitivity decreased in the segmental and subsegmental pulmonary arteries most severely in the lower lung zones where assessment is essentially nondiagnostic due to large amount of motion artifact. 2. Small lung volumes with dependent and basilar atelectasis in both lungs. 3. A couple likely metastatic sclerotic bone lesions at T2 and T5 along with postoperative changes and posterior spinal fusion at the cervicothoracic junction. See separate thoracic spine CT report for further detail. 4. Status post right nephrectomy reportedly for renal cell carcinoma. Thoracic spine CT was read as 1. Interval resection of a prior large lytic mass, presumably resected renal cell carcinoma, at the T2 spinous processes and subsequent stabilization with instrumented C7-T4 posterior spinal fusion. 2. Sclerosis suggesting response to treatment of metastatic disease at a prior lytic lesion at the posterior T2 vertebral body as well as at a new lesion at the T5 vertebral body. 3. Moderate thoracic spondylosis. No acute osseous abnormality. 4. Status post right nephrectomy presumably for reported renal cell carcinoma. Cervical spine CT was read as1. Moderate cervical spondylosis without acute findings. 2. Pathologic fracture of T2. Her chest x-ray was read as mild patchy infiltrate and/or atelectasis in both lower lungs. Since the patient was hypoxic and he had an elevated white count. I did start him on a azithromycin Rocephin. Blood cultures are pending. The patient is being admitted to inpatient services on the date of service of 11/04/2021. Chief Complaint: Fever and hypoxia Review of Systems Review of Systems: All systems reviewed & are unremarkable except as noted in HPI and below Constitutional: Constitutional: Reports as per HPI and Reports no additional constitutional complaints Eyes: Eyes: Reports as per HPI and Reports no additional eye complaints ENT: Reports system reviewed and no additional complaints, except as documented and Reports Normal hearing present Cardiovascular: Cardiovascular: Reports no additional cardiovascular complaints Respiratory: Respiratory: Reports no additional respiratory complaints and Reports no additional respiratory complaints Gastrointestinal: Gastrointestinal: Reports as per HPI and Reports no additional gastrointestinal complaints Musculoskeletal: Musculoskeletal: Reports no additional musculoskeletal complaints Integumentary/Breasts: Skin/Breast: Reports system reviewed and no additional complaints, except as docu and Reports as per HPI Neurologic: Reports system reviewed and no additional complaints, except as documented, Reports as per HPI and Reports Normal hearing present Psychiatric: Psychiatric: Reports no additional psychiatric complaints and Reports as per HPI Endocrine: Endocrine: Reports no additional endocrine complaints Hematologic/Lymphatic: Hematologic/Lymphatic: Reports no additional hematologic/lymphatic complaints Allergic/Immunologic: Allergic/Immunologic: Reports no additional allergic/immunologic complaints PMFSH Past Medical History Medical History (Updated 11/04/21 @ 20:00 by Orly Gonzalez NP) Adrenal insufficiency Chronic anticoagulation Chronic back pain Deep venous thrombosis Depression Histo
--- NOTE | 2021-11-04 18:25 | PC.NURSE ---
Patient report called to MARILYN Alfonso on 3M/S. All questions answered. Patient transported via neurology technician on rn cardiac. VSS.
[2021-11-04] MEDS: fentaNYL (*CRX) 25 MCG PATCH TRANSDERM (19:58)
[2021-11-04] MEDS: traZODone HCL 50 MG TABLET 100 MG PO (21:24)
[2021-11-05] VITALS (11 sets, daily range): BP systolic 108–126; BP diastolic 70–77; PULSE 76–91; RESP 16–18; TEMP 37.1–37.9; O2SAT 91–96
[2021-11-05] MEDS: LEVOTHYROXINE SODIUM 150 MCG TABLET PO (06:23)
[2021-11-05] MEDS: oxyCODONE HCL (*CRX) 5 MG TAB IR 10 MG PO ×2 (06:23→14:34)
[2021-11-05] MEDS: HYDROmorphone HCL INJ (*CRX) 1 MG/ML SYR IV PUSH (07:36)
[2021-11-05 07:48] LABS: Basophils Percent Auto 0.3 % (0.2-1.2); Eosinophils Absolute Auto 0.4 K/mm3 (0-0.3); Eosinophils Percent Auto 4.4 % (0-4.4); Hematocrit 39.6 % (42.0-52.0); Hemoglobin 12.6 g/dL (14.0-18.0); Immature Granulocyte Absolute 0.03 K/mm3 (0.00-0.031); Immature Granulocyte Percent A 0.3 % (0-0.5); Lactic Acid Reflex 0.7 mmol/L (0.7-2.1); Lymphocytes Absolute Auto 3.82 K/mm3 (0.9-3.2); Lymphocytes Percent Auto 38.9 % (18.3-44.2); Mean Corpuscular HGB Conc 31.8 g/dl (32-36); Mean Corpuscular Hemoglobin 32.5 pg (26-34); Mean Corpuscular Volume 102.1 fl (80-100); Mean Platelet Volume 9.2 fl (7.4-10.4); Monocytes Absolute Auto 1.4 K/mm3 (0.1-0.6); Monocytes Percent Auto 14.4 % (2.6-8.5); Neutrophils Absolute Auto 4.1 K/mm3 (1.3-6.7); Neutrophils Percent Auto 41.7 % (45.5-73.1); Platelet Count Result 489 k/mm3 (150-375); Red Blood Count 3.88 M/mm3 (4.6-6.20); Red Cell Distribution Width 15.9 % (11.5-14.5); White Blood Count 9.8 K/mm3 (4.5-10.0)
[2021-11-05] MEDS: amLODIPine BESYLATE 5 MG TABLET 10 MG PO (08:12)
[2021-11-05] MEDS: FLUoxetine HCL 20 MG CAPSULE 60 MG PO (08:12)
[2021-11-05] MEDS: DOCUSATE SODIUM 100 MG CAPSULE PO (08:13)
[2021-11-05] MEDS: buPROPion HCL SR (12HR) 100 MG TABCR PO ×2 (08:13→22:11)
[2021-11-05] MEDS: APIXABAN 5 MG TABLET PO ×2 (08:13→22:11)
[2021-11-05 08:22] LABS: Alanine Aminotransferase 29 U/L (4-50); Albumin Level 3.4 g/dL (3.5-5.1); Alkaline Phosphatase 46 U/L (38-126); Anion Gap 3 mmol/L (8-16); Aspartate Amino Transferase 43 U/L (17-59); Bilirubin,Total 0.7 mg/dL (0.2-1.3); Blood Urea Nitrogen 16 mg/dL (9-20); Calcium 8.2 mg/dL (8.4-10.2); Carbon Dioxide 30 mmol/L (22-30); Chloride 102 mmol/L (98-107); Estimated CRCL calculation 90 ml/min; Estimated Glomerular Filt Rate > 60; Glucose 89 mg/dL (65-110); Lactate Dehydrogenase 517 U/L (313-618); Potassium 4.2 mmol/L (3.4-5.0); Sodium 135 mmol/L (137-145)
[2021-11-05 09:33] LABS: Thyroid Stimulating Hormone Reflex 0.574 uIU/mL (0.465-4.68)
[2021-11-05] MEDS: SODIUM CHLORIDE 0.9% IV 1,000 ML 95 ML IV CONT (11:17)
--- NOTE | 2021-11-05 14:59 | P.PNIM_ITS ---
Progress Note: A&P Assessment and Plan (1) Metastatic renal cell carcinoma to bone: Code(s): C79.51 - Secondary malignant neoplasm of bone; C64.9 - Malignant neoplasm of unspecified kidney, except renal pelvis Status: Acute Assessment and Plan: Please see subjective for further details. * Patient established with Oncology at [place] * S/p right nephrectomy * S/p embolization of large lytic T2 mass with subsequent stabilization C7-T4 spinal fusion * Maintained on monthly immunotherapy and oral chemotherapy * Continue cabozanitinib once brought from home (2) Neck pain: Code(s): M54.2 - Cervicalgia Status: Acute Assessment and Plan: Patient has chronic neck pain that has become acutely worsened over the past 2 days * Denies injury, accident, trauma * Likely related to bony metastases, may be exacerbated by muscle strain * Analgesics available as needed * Supportive care. Ice and heat as needed * Will need to continue with outpatient follow-up, possibly will need to be re- evaluated by his neurosurgeon if persistent (3) T2 vertebral fracture: Code(s): S22.029A - Unspecified fracture of second thoracic vertebra, initial encounter for closed fracture Status: Acute Assessment and Plan: Pathologic fracture of T2 noted on cervical spine CT * Secondary to known bony metastases * Informed patient's oncology office of these findings. (4) Pneumonia: Qualifiers: Pneumonia type: due to unspecified organism Code(s): J18.9 - Pneumonia, unspecified organism Status: Acute Assessment and Plan: CXR showed mild patchy infiltrates of the bilateral lower lungs * This may be related to his recent COVID illness * He has been started on azithromycin and Rocephin for treatment of community- acquired pneumonia * He is not requiring 3 L supplemental O2 per nasal cannula * Low-grade fever 100.4. Continue to monitor. Antipyretics available as needed * COVID-19 PCR test negative on 11/04 * Will check influenza, Legionella and pneumococcal urinary antigens * Supportive care. 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 Subjective Date/time seen: 11/05/21 14:59 Interval history: Date of service: 11/05/2021 Real Pimentel is a 61-year-old male with a history of hypertension, hypothyroidism, renal cell carcinoma s/p right nephrectomy, bony metastases to the spine s/p tumor resection ends cervical fusion in 2019 now maintained on monthly immunotherapy infusions and oral chemotherapy, DVT on chronic anticoagulation who is seen in follow-up for increased neck pain and suspected pneumonia. The patient tells me that he has chronic neck pain and decreased range of motion. His neck pain is typically around 3-4/10 on a regular day. Two days ago he developed onset significantly worsened neck pain and even more diminished range of motion. He now rates his neck pain as 9/10 with any mov
--- NOTE | 2021-11-05 14:59 | PM.IMPN ---
Progress Note: A&P Assessment and Plan (1) Metastatic renal cell carcinoma to bone: Code(s): C79.51 - Secondary malignant neoplasm of bone; C64.9 - Malignant neoplasm of unspecified kidney, except renal pelvis Status: Acute Assessment and Plan: Please see subjective for further details. Patient established with Oncology at [place] S/p right nephrectomy S/p embolization of large lytic T2 mass with subsequent stabilization C7-T4 spinal fusion Maintained on monthly immunotherapy and oral chemotherapy Continue cabozanitinib once brought from home (2) Neck pain: Code(s): M54.2 - Cervicalgia Status: Acute Assessment and Plan: Patient has chronic neck pain that has become acutely worsened over the past 2 days Denies injury, accident, trauma Likely related to bony metastases, may be exacerbated by muscle strain Analgesics available as needed Supportive care. Ice and heat as needed Will need to continue with outpatient follow-up, possibly will need to be re-evaluated by his neurosurgeon if persistent (3) T2 vertebral fracture: Code(s): S22.029A - Unspecified fracture of second thoracic vertebra, initial encounter for closed fracture Status: Acute Assessment and Plan: Pathologic fracture of T2 noted on cervical spine CT Secondary to known bony metastases Informed patient's oncology office of these findings. (4) Pneumonia: Qualifiers: Pneumonia type: due to unspecified organism Code(s): J18.9 - Pneumonia, unspecified organism Status: Acute Assessment and Plan: CXR showed mild patchy infiltrates of the bilateral lower lungs This may be related to his recent COVID illness He has been started on azithromycin and Rocephin for treatment of community-acquired pneumonia He is not requiring 3 L supplemental O2 per nasal cannula Low-grade fever 100.4. Continue to monitor. Antipyretics available as needed COVID-19 PCR test negative on 11/04 Will check influenza, Legionella and pneumococcal urinary antigens Supportive care. Continue bronchodilators, antipyretics, incentive spirometry, expectorants (5) Hypothyroidism: Code(s): E03.9 - Hypothyroidism, unspecified Status: Acute Assessment and Plan: TSH is within normal limits Continue levothyroxine (6) Hypertension: Code(s): I10 - Essential (primary) hypertension Status: Acute Assessment and Plan: Blood pressures have been well controlled Continue amlodipine 10 mg daily (7) Chronic anticoagulation: Code(s): Z79.01 - [facility] (current) use of anticoagulants Status: Acute Assessment and Plan: Secondary to DVT Continue with Eliquis. Subjective Date/time seen: 11/05/21 14:59 Interval history: Date of service: 11/05/2021 Real Pimentel is a 61-year-old male with a history of hypertension, hypothyroidism, renal cell carcinoma s/p right nephrectomy, bony metastases to the spine s/p tumor resection ends cervical fusion in 2019 now maintained on monthly immunotherapy infusions and oral chemotherapy, DVT on chronic anticoagulation who is seen in follow-up for increased neck pain and suspected pneumonia. The patient tells me that he has chronic neck pain and decreased range of motion. His neck pain is typically around 3-4/10 on a regular day. Two days ago he developed onset significantly worsened neck pain and even more diminished range of motion. He now rates his neck pain as 9/10 with any movements. He is only comfortable if he keeps looking straight ahead and has pain with any movement of the neck. He denies numbness or tingling of his upper extremities. Denies changes in sensation or color changes of the extremities. He still is able to get up and walk around, though he notes this is more painful. Additionally, he endorses sore throat which has been ongoing for 1 month. He recently had a CT scan for this but has n
--- NOTE | 2021-11-05 15:06 | PHAR ---
PATIENT'S HOME MED: CABOZANTINIB 20 MG, TAKE ONE TABLET BY MOUTH ONCE A DAY. TABLETS VERIFIED BY PHARMACY.
[2021-11-05] MEDS: HYDROCORTISONE 10 MG TABLET PO (17:38)
[2021-11-05] MEDS: ACETAMINOPHEN 325 MG TABLET 650 MG PO (17:40)
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
[2021-11-05] MEDS: guaiFENesin 12 HR 600 MG TABCR PO (22:10)
[2021-11-05] MEDS: traZODone HCL 50 MG TABLET 100 MG PO (22:11)
[2021-11-05] MEDS: FLUTICASONE PROPIONATE 0.05% NA SPR 16 GM BTL (*BKC) 1 SPRAY NASAL (22:11)
[2021-11-06] VITALS (10 sets, daily range): BP systolic 126–139; BP diastolic 70–81; PULSE 62–90; RESP 16–20; TEMP 36.3–37; O2SAT 92–97
[2021-11-06] MEDS: ACETAMINOPHEN 325 MG TABLET 650 MG PO ×2 (01:25→06:30)
[2021-11-06 05:13] LABS: Influenza Control Positive
[2021-11-06] MEDS: LEVOTHYROXINE SODIUM 150 MCG TABLET PO (06:31)
[2021-11-06 07:06] LABS: Hematocrit 39.5 % (42.0-52.0); Hemoglobin 12.7 g/dL (14.0-18.0); Mean Corpuscular HGB Conc 32.2 g/dl (32-36); Mean Corpuscular Hemoglobin 32.7 pg (26-34); Mean Corpuscular Volume 101.8 fl (80-100); Platelet Count Result 445 k/mm3 (150-375); Red Blood Count 3.88 M/mm3 (4.6-6.20); Red Cell Distribution Width 15.3 % (11.5-14.5); White Blood Count 11.1 K/mm3 (4.5-10.0)
[2021-11-06 07:20] LABS: Anion Gap 5 mmol/L (8-16); Blood Urea Nitrogen 12 mg/dL (9-20); Calcium 8.3 mg/dL (8.4-10.2); Carbon Dioxide 26 mmol/L (22-30); Chloride 103 mmol/L (98-107); Estimated CRCL calculation 111 ml/min; Estimated Glomerular Filt Rate > 60; Glucose 76 mg/dL (65-110); Potassium 4.1 mmol/L (3.4-5.0); Sodium 134 mmol/L (137-145)
[2021-11-06] MEDS: FLUTICASONE PROPIONATE 0.05% NA SPR 16 GM BTL (*BKC) 1 SPRAY NASAL (09:17)
[2021-11-06] MEDS: LORATADINE 5 MG TABLET PO (09:18)
[2021-11-06] MEDS: HYDROCORTISONE 10 MG TABLET 20 MG PO (09:18)
[2021-11-06] MEDS: amLODIPine BESYLATE 5 MG TABLET 10 MG PO (09:18)
[2021-11-06] MEDS: buPROPion HCL SR (12HR) 100 MG TABCR PO ×2 (09:19→20:16)
[2021-11-06] MEDS: DOCUSATE SODIUM 100 MG CAPSULE PO (09:19)
[2021-11-06] MEDS: APIXABAN 5 MG TABLET PO ×2 (09:19→20:16)
[2021-11-06] MEDS: guaiFENesin 12 HR 600 MG TABCR PO ×2 (09:19→20:16)
[2021-11-06] MEDS: FLUoxetine HCL 20 MG CAPSULE 60 MG PO (09:19)
--- NOTE | 2021-11-06 11:22 | P.PNIM_ITS ---
Progress Note: A&P Assessment and Plan (1) Metastatic renal cell carcinoma to bone: Code(s): C79.51 - Secondary malignant neoplasm of bone; C64.9 - Malignant neoplasm of unspecified kidney, except renal pelvis Status: Acute Assessment and Plan: Patient with right renal cell carcinoma with bony metastases to the cervical and thoracic spine * Patient established with Oncology at [place] * S/p right nephrectomy * S/p embolization of large lytic T2 mass with subsequent stabilization C7-T4 spinal fusion * Maintained on monthly immunotherapy and oral chemotherapy * Continue cabozanitinib once daily (2) Neck pain: Code(s): M54.2 - Cervicalgia Status: Acute Assessment and Plan: Patient has chronic neck pain that has become acutely worsened over the past 2 days * Denies injury, accident, trauma * Cervical CT showed pathologic T2 fracture and thoracic CT showed new lesion at T5 vertebral body * Likely related to bony metastases. He will need to follow-up with his oncologist, possibly need to consider further radiation treatment * May be exacerbated by muscle strain. P.r.n. muscle relaxant available * Analgesics available as needed. Patient reports his home oxycodone is ineffective and will transition to hydrocodone * Supportive care. Ice and heat as needed * Will need to continue with outpatient follow-up, possibly will need to be re- evaluated by his neurosurgeon if persistent (3) T2 vertebral fracture: Code(s): S22.029A - Unspecified fracture of second thoracic vertebra, initial encounter for closed fracture Status: Acute Assessment and Plan: Pathologic fracture of T2 noted on cervical spine CT * Secondary to known bony metastases * Informed patient's oncology office of these findings. (4) Hypoxia: Code(s): R09.02 - Hypoxemia Status: Acute Assessment and Plan: Noted to be hypoxic down to 88% * Currently requiring 3 L supplemental O2 and maintaining O2 sats >95%. * Wean to goal 92% or above * Etiology unclear. May be due to pneumonia (see below) * No PE on CTA * Additionally pt noted to have bibasilar crackles, though no evidence of pulmonary edema noted on imaging. BNP pending. Will administer Lasix 20 mg IV one time and assess for improvement. Monitor urine output. Consider echo (5) Pneumonia: Qualifiers: Pneumonia type: due to unspecified organism Code(s): J18.9 - Pneumonia, unspecified organism Status: Acute Assessment and Plan: CXR showed mild patchy infiltrates of the bilateral lower lungs * This may be related to his recent COVID illness * He has been started on azithromycin and Rocephin for treatment of community- acquired pneumonia * Supplemental O2 as needed with goal sats 92% or above * Low-grade fever 100.4 on 11/04. Continue to monitor. Antipyretics available as needed * COVID-19 PCR test negative on 11/04 * Influenza negative. * Legionella and pneumococcal urinary antigens pending * Supportive care. Continue bronchodilators, antipyretics, incentive spirometry, expectorants (6) Hypothyroidism: Code(s): E03.9 - Hypothyroidism, unspecified Status: Acute Assessment and Plan: TSH is within normal limits * Continue levothyroxine (7) Hypertension: Code(s): I10 - Essential (primary) hypertension Status: Acute Assessment and Plan: Blood pressures have been well controlled. Last BP 128/81 * Continue amlodipine 10 mg daily (8) Chronic anticoagulation:
--- NOTE | 2021-11-06 11:22 | PM.IMPN ---
Progress Note: A&P Assessment and Plan (1) Metastatic renal cell carcinoma to bone: Code(s): C79.51 - Secondary malignant neoplasm of bone; C64.9 - Malignant neoplasm of unspecified kidney, except renal pelvis Status: Acute Assessment and Plan: Patient with right renal cell carcinoma with bony metastases to the cervical and thoracic spine Patient established with Oncology at [place] S/p right nephrectomy S/p embolization of large lytic T2 mass with subsequent stabilization C7-T4 spinal fusion Maintained on monthly immunotherapy and oral chemotherapy Continue cabozanitinib once daily (2) Neck pain: Code(s): M54.2 - Cervicalgia Status: Acute Assessment and Plan: Patient has chronic neck pain that has become acutely worsened over the past 2 days Denies injury, accident, trauma Cervical CT showed pathologic T2 fracture and thoracic CT showed new lesion at T5 vertebral body Likely related to bony metastases. He will need to follow-up with his oncologist, possibly need to consider further radiation treatment May be exacerbated by muscle strain. P.r.n. muscle relaxant available Analgesics available as needed. Patient reports his home oxycodone is ineffective and will transition to hydrocodone Supportive care. Ice and heat as needed Will need to continue with outpatient follow-up, possibly will need to be re-evaluated by his neurosurgeon if persistent (3) T2 vertebral fracture: Code(s): S22.029A - Unspecified fracture of second thoracic vertebra, initial encounter for closed fracture Status: Acute Assessment and Plan: Pathologic fracture of T2 noted on cervical spine CT Secondary to known bony metastases Informed patient's oncology office of these findings. (4) Hypoxia: Code(s): R09.02 - Hypoxemia Status: Acute Assessment and Plan: Noted to be hypoxic down to 88% Currently requiring 3 L supplemental O2 and maintaining O2 sats >95%. Wean to goal 92% or above Etiology unclear. May be due to pneumonia (see below) No PE on CTA Additionally pt noted to have bibasilar crackles, though no evidence of pulmonary edema noted on imaging. BNP pending. Will administer Lasix 20 mg IV one time and assess for improvement. Monitor urine output. Consider echo (5) Pneumonia: Qualifiers: Pneumonia type: due to unspecified organism Code(s): J18.9 - Pneumonia, unspecified organism Status: Acute Assessment and Plan: CXR showed mild patchy infiltrates of the bilateral lower lungs This may be related to his recent COVID illness He has been started on azithromycin and Rocephin for treatment of community-acquired pneumonia Supplemental O2 as needed with goal sats 92% or above Low-grade fever 100.4 on 11/04. Continue to monitor. Antipyretics available as needed COVID-19 PCR test negative on 11/04 Influenza negative. Legionella and pneumococcal urinary antigens pending Supportive care. Continue bronchodilators, antipyretics, incentive spirometry, expectorants (6) Hypothyroidism: Code(s): E03.9 - Hypothyroidism, unspecified Status: Acute Assessment and Plan: TSH is within normal limits Continue levothyroxine (7) Hypertension: Code(s): I10 - Essential (primary) hypertension Status: Acute Assessment and Plan: Blood pressures have been well controlled. Last BP 128/81 Continue amlodipine 10 mg daily (8) Chronic anticoagulation: Code(s): Z79.01 - correction (current) use of anticoagulants Status: Acute Assessment and Plan: Secondary to DVT Continue with Eliquis. Subjective Date/time seen: 11/06/21 11:22 Interval history: Date of service: 11/05/2021 Real Pimentel is a 61-year-old male with a history of hypertension, hypothyroidism, renal cell carcinoma s/p right nephrectomy, bony metastases to the spine s/p tumor resection and cervical fusion in
[2021-11-06 12:27] LABS: NT Pro B Type Natriuretic Pept 188 pg/mL (5-100)
[2021-11-06] MEDS: HYDROcodone/acetaminophen (*CRX) 5-325 MG TABLET 1 TAB PO ×2 (12:35→20:21)
[2021-11-06] MEDS: FUROSEMIDE INJ 40 MG/4 ML VIAL 20 MG IV PUSH (12:35)
[2021-11-06] MEDS: HYDROCORTISONE 10 MG TABLET PO (17:26)
[2021-11-06] MEDS: traZODone HCL 50 MG TABLET 100 MG PO (20:16)
[2021-11-07] VITALS (7 sets, daily range): BP systolic 119–132; BP diastolic 64–78; PULSE 76–80; RESP 16; TEMP 36.3–36.6; O2SAT 92–97
[2021-11-07] MEDS: LEVOTHYROXINE SODIUM 150 MCG TABLET PO (06:19)
[2021-11-07] MEDS: HYDROcodone/acetaminophen (*CRX) 5-325 MG TABLET 1 TAB PO ×3 (06:19→20:57)
[2021-11-07 07:10] LABS: Anion Gap 7 mmol/L (8-16); Blood Urea Nitrogen 12 mg/dL (9-20); Calcium 8.7 mg/dL (8.4-10.2); Carbon Dioxide 25 mmol/L (22-30); Chloride 107 mmol/L (98-107); Estimated CRCL calculation 111 ml/min; Estimated Glomerular Filt Rate > 60; Glucose 85 mg/dL (65-110); Potassium 3.9 mmol/L (3.4-5.0); Sodium 139 mmol/L (137-145)
[2021-11-07] MEDS: fentaNYL (*CRX) 25 MCG PATCH TRANSDERM (08:33)
[2021-11-07] MEDS: ACETAMINOPHEN 325 MG TABLET 650 MG PO (08:35)
[2021-11-07] MEDS: FLUTICASONE PROPIONATE 0.05% NA SPR 16 GM BTL (*BKC) 1 SPRAY NASAL ×2 (08:35→20:52)
[2021-11-07] MEDS: APIXABAN 5 MG TABLET PO ×2 (08:36→20:52)
[2021-11-07] MEDS: guaiFENesin 12 HR 600 MG TABCR PO ×2 (08:37→20:52)
[2021-11-07] MEDS: buPROPion HCL SR (12HR) 100 MG TABCR PO ×2 (08:37→20:52)
[2021-11-07] MEDS: DOCUSATE SODIUM 100 MG CAPSULE PO (08:37)
[2021-11-07] MEDS: HYDROCORTISONE 10 MG TABLET 20 MG PO (08:37)
[2021-11-07] MEDS: FLUoxetine HCL 20 MG CAPSULE 60 MG PO (08:38)
[2021-11-07] MEDS: amLODIPine BESYLATE 5 MG TABLET 10 MG PO (08:38)
[2021-11-07] MEDS: LORATADINE 5 MG TABLET PO (08:39)
[2021-11-07 09:05] LABS: Hematocrit 43.3 % (42.0-52.0); Hemoglobin 14.3 g/dL (14.0-18.0); Mean Corpuscular Hemoglobin 31.8 pg (26-34); Mean Corpuscular Volume 96.2 fl (80-100); Mean Platelet Volume 9.1 fl (7.4-10.4); Platelet Count Result 587 k/mm3 (150-375); Red Cell Distribution Width 14.9 % (11.5-14.5); White Blood Count 8.8 K/mm3 (4.5-10.0)
--- NOTE | 2021-11-07 14:02 | P.PNIM_ITS ---
Progress Note: A&P Assessment and Plan (1) Metastatic renal cell carcinoma to bone: Code(s): C79.51 - Secondary malignant neoplasm of bone; C64.9 - Malignant neoplasm of unspecified kidney, except renal pelvis Status: Acute Assessment and Plan: Patient with right renal cell carcinoma with bony metastases to the cervical and thoracic spine * Patient established with Oncology at [facility] * S/p right nephrectomy * S/p embolization of large lytic T2 mass with subsequent stabilization C7-T4 spinal fusion * Maintained on monthly immunotherapy and oral chemotherapy * Continue cabozanitinib once daily (2) Neck pain: Code(s): M54.2 - Cervicalgia Status: Acute Assessment and Plan: Patient has chronic neck pain that has become acutely worsened over the past 2 days * Denies injury, accident, trauma * Cervical CT showed pathologic T2 fracture and thoracic CT showed new lesion at T5 vertebral body * Likely related to bony metastases. He will need to follow-up with his oncologist, possibly need to consider further radiation treatment * May be exacerbated by muscle strain. Continue cyclobenzaprine p.r.n. * Analgesics available as needed. Patient reports his home oxycodone and thus transitioned to hydrocodone * Supportive care. Ice and heat as needed * Will need to continue with outpatient follow-up, possibly will need to be re- evaluated by his neurosurgeon if persistent * Overall improvement today with pain 3-4/10 (3) T2 vertebral fracture: Code(s): S22.029A - Unspecified fracture of second thoracic vertebra, initial encounter for closed fracture Status: Acute Assessment and Plan: Pathologic fracture of T2 noted on cervical spine CT * Secondary to known bony metastases * Informed patient's oncology office of these findings. * We will provide a disc for the patient upon discharge of these images that he can provide to his oncologist (4) Hypoxia: Code(s): R09.02 - Hypoxemia Status: Acute Assessment and Plan: Noted to be hypoxic down to 88% * Currently requiring 2 L supplemental O2 and maintaining O2 sats >95%. * Wean to goal 92% or above * Most likely due to pneumonia * No PE on CTA * No evidence of pulmonary edema noted on imaging. BNP normal. No symptomatic change with 1 time dose of IV Lasix. (5) Pneumonia: Qualifiers: Pneumonia type: due to unspecified organism Code(s): J18.9 - Pneumonia, unspecified organism Status: Acute Assessment and Plan: CXR showed mild patchy infiltrates of the bilateral lower lungs * This may be related to his recent COVID illness * Continue azithromycin and Rocephin for treatment of community-acquired pneumonia * Supplemental O2 as needed with goal sats 92% or above. Wean to goal * Low-grade fever 100.4 on 11/04. Continue to monitor. Antipyretics available as needed * COVID-19 PCR test negative on 11/04 * Influenza negative. * Legionella and pneumococcal urinary antigens pending * Sputum culture not performed due to oropharyngeal contamination * Supportive care. Continue bronchodilators, antipyretics, incentive spirometry, expectorants (6) Hypothyroidism: Code(s): E03.9 - Hypothyroidism, unspecified Status: Acute Assessment and Plan: TSH is within normal limits * Continue levothyroxine (7) Hypertension: Code(s): I10 - Essential (primary) hypertension Status: Acute Assessment and Plan: Blood pressures have been well controlled. Last BP 119/64
--- NOTE | 2021-11-07 14:02 | PM.IMPN ---
Progress Note: A&P Assessment and Plan (1) Metastatic renal cell carcinoma to bone: Code(s): C79.51 - Secondary malignant neoplasm of bone; C64.9 - Malignant neoplasm of unspecified kidney, except renal pelvis Status: Acute Assessment and Plan: Patient with right renal cell carcinoma with bony metastases to the cervical and thoracic spine Patient established with [facility]cology at [facility] S/p right nephrectomy S/p embolization of large lytic T2 mass with subsequent stabilization C7-T4 spinal fusion Maintained on monthly immunotherapy and oral chemotherapy Continue cabozanitinib once daily (2) Neck pain: Code(s): M54.2 - Cervicalgia Status: Acute Assessment and Plan: Patient has chronic neck pain that has become acutely worsened over the past 2 days Denies injury, accident, trauma Cervical CT showed pathologic T2 fracture and thoracic CT showed new lesion at T5 vertebral body Likely related to bony metastases. He will need to follow-up with his oncologist, possibly need to consider further radiation treatment May be exacerbated by muscle strain. Continue cyclobenzaprine p.r.n. Analgesics available as needed. Patient reports his home oxycodone and thus transitioned to hydrocodone Supportive care. Ice and heat as needed Will need to continue with outpatient follow-up, possibly will need to be re-evaluated by his neurosurgeon if persistent Overall improvement today with pain 3-4/10 (3) T2 vertebral fracture: Code(s): S22.029A - Unspecified fracture of second thoracic vertebra, initial encounter for closed fracture Status: Acute Assessment and Plan: Pathologic fracture of T2 noted on cervical spine CT Secondary to known bony metastases Informed patient's oncology office of these findings. We will provide a disc for the patient upon discharge of these images that he can provide to his oncologist (4) Hypoxia: Code(s): R09.02 - Hypoxemia Status: Acute Assessment and Plan: Noted to be hypoxic down to 88% Currently requiring 2 L supplemental O2 and maintaining O2 sats >95%. Wean to goal 92% or above Most likely due to pneumonia No PE on CTA No evidence of pulmonary edema noted on imaging. BNP normal. No symptomatic change with 1 time dose of IV Lasix. (5) Pneumonia: Qualifiers: Pneumonia type: due to unspecified organism Code(s): J18.9 - Pneumonia, unspecified organism Status: Acute Assessment and Plan: CXR showed mild patchy infiltrates of the bilateral lower lungs This may be related to his recent COVID illness Continue azithromycin and Rocephin for treatment of community-acquired pneumonia Supplemental O2 as needed with goal sats 92% or above. Wean to goal Low-grade fever 100.4 on 11/04. Continue to monitor. Antipyretics available as needed COVID-19 PCR test negative on 11/04 Influenza negative. Legionella and pneumococcal urinary antigens pending Sputum culture not performed due to oropharyngeal contamination Supportive care. Continue bronchodilators, antipyretics, incentive spirometry, expectorants (6) Hypothyroidism: Code(s): E03.9 - Hypothyroidism, unspecified Status: Acute Assessment and Plan: TSH is within normal limits Continue levothyroxine (7) Hypertension: Code(s): I10 - Essential (primary) hypertension Status: Acute Assessment and Plan: Blood pressures have been well controlled. Last BP 119/64 Continue amlodipine 10 mg daily (8) Chronic anticoagulation: Code(s): Z79.01 - roasterman (current) use of anticoagulants Status: Acute Assessment and Plan: Secondary to DVT Continue with Eliquis. Subjective Date/time seen: 11/07/21 14:02 Interval history: Date of service: 11/06/2021 Real Pimentel is a 61-year-old male with a history of hypertension, hypothyroidism, renal cell carcinoma s/p right nephrecto
[2021-11-07] MEDS: HYDROCORTISONE 10 MG TABLET PO (15:30)
[2021-11-07] MEDS: traZODone HCL 50 MG TABLET 100 MG PO (20:52)
[2021-11-08] MEDS: LEVOTHYROXINE SODIUM 150 MCG TABLET PO (05:59)
[2021-11-08 06:00] VITALS: BP 136/71; PULSE 82; RESP 16; TEMP 36.6; O2SAT 96
[2021-11-08] MEDS: APIXABAN 5 MG TABLET PO (09:26)
[2021-11-08] MEDS: guaiFENesin 12 HR 600 MG TABCR PO (09:26)
[2021-11-08] MEDS: amLODIPine BESYLATE 5 MG TABLET 10 MG PO (09:26)
[2021-11-08] MEDS: FLUoxetine HCL 20 MG CAPSULE 60 MG PO (09:26)
[2021-11-08] MEDS: DOCUSATE SODIUM 100 MG CAPSULE PO (09:26)
[2021-11-08] MEDS: HYDROCORTISONE 10 MG TABLET 20 MG PO (09:26)
[2021-11-08] MEDS: buPROPion HCL SR (12HR) 100 MG TABCR PO (09:26)
[2021-11-08] MEDS: LORATADINE 5 MG TABLET PO (09:27)
[2021-11-08] MEDS: FLUTICASONE PROPIONATE 0.05% NA SPR 16 GM BTL (*BKC) 1 SPRAY NASAL (09:28)
--- NOTE | 2021-11-08 13:43 | P.DS_ITS ---
DS: Admitting Diagnosis Discharge Date 11/08/2021 Admitting Diagnosis Neck pain DS: Discharge Diagnosis Discharge Diagnosis (1) Metastatic renal cell carcinoma to bone: Code(s): C79.51 - Secondary malignant neoplasm of bone; C64.9 - Malignant neoplasm of unspecified kidney, except renal pelvis Status: Acute Assessment and Plan: Patient with right renal cell carcinoma with bony metastases to the cervical and thoracic spine * Patient established with Oncology at [facility]. Discussed case with his oncology office via phone on 11/05 * S/p right nephrectomy * S/p embolization of large lytic T2 mass with subsequent stabilization C7-T4 spinal fusion * Maintained on monthly immunotherapy and oral chemotherapy * Continue cabozanitinib once daily * He will need to follow up with his oncologist as an outpatient (2) Neck pain: Code(s): M54.2 - Cervicalgia Status: Acute Assessment and Plan: Patient has chronic neck pain that had become acutely worsened over the past 2 days prior to admission * Denies injury, accident, trauma * Cervical CT showed pathologic T2 fracture and thoracic CT showed new lesion at T5 vertebral body * Likely related to bony metastases. He will need to follow-up with his oncologist, possibly need to consider further radiation treatment * May have been exacerbated by muscle strain. He did have improvement with cyclobenzaprine. * Analgesics provided. Patient was no longer having response to his extended release morphine therefore was transitioned to fentanyl patch with good pain relief. Continue fentanyl patch q72h and follow up with oncology. * Supportive care provided. Ice and heat as needed * Overall had symtomatic improvement (3) T2 vertebral fracture: Code(s): S22.029A - Unspecified fracture of second thoracic vertebra, initial encounter for closed fracture Status: Acute Assessment and Plan: Pathologic fracture of T2 noted on cervical spine CT * Secondary to known bony metastases * Informed patient's oncology office of these findings. * Patient received a disc with radiologic scans from this hospital stay to give to his oncologist for review. (4) Hypoxia: Code(s): R09.02 - Hypoxemia Status: Acute Assessment and Plan: Noted to be hypoxic down to 88% on admission * Most likely related to pneumonia * No PE on CTA * No evidence of pulmonary edema on imaging. BNP normal. * Required up to 2 L supplemental O2 and was able to be weaned without difficulty * Maintained adequate O2 sats on room air * Tolerated ambulation trial prior to discharge with O2 sats between 92-94% (5) Pneumonia: Qualifiers: Pneumonia type: due to unspecified organism Code(s): J18.9 - Pneumonia, unspecified organism Status: Acute Assessment and Plan: CXR showed mild patchy infiltrates of the bilateral lower lungs * This may be related to his recent COVID illness * Treated with azithromycin and Rocephin for treatment of community-acquired pneumonia. Continue PO cefdinir to complete 7 days. * Low grade fever 100.4 on 11/04. He remained afebrile following. * COVID-19 PCR test negative on 11/04 * Influenza negative. * Legionella and pneumococcal urinary antigens pending. Continue to monitor * Sputum culture not performed due to oropharyngeal contamination (6) Hypothyroidism: Code(s): E03.9 - Hypothyroidism, unspecified Status: Acute Assessment and Plan: TSH is within normal limits * Continue levothyroxine (
--- NOTE | 2021-11-08 13:43 | PM.DS ---
DS: Admitting Diagnosis Discharge Date 11/08/2021 Admitting Diagnosis Neck pain DS: Discharge Diagnosis Discharge Diagnosis (1) Metastatic renal cell carcinoma to bone: Code(s): C79.51 - Secondary malignant neoplasm of bone; C64.9 - Malignant neoplasm of unspecified kidney, except renal pelvis Status: Acute Assessment and Plan: Patient with right renal cell carcinoma with bony metastases to the cervical and thoracic spine Patient established with Oncology at [facility]. Discussed case with his oncology office via phone on 11/05 S/p right nephrectomy S/p embolization of large lytic T2 mass with subsequent stabilization C7-T4 spinal fusion Maintained on monthly immunotherapy and oral chemotherapy Continue cabozanitinib once daily He will need to follow up with his oncologist as an outpatient (2) Neck pain: Code(s): M54.2 - Cervicalgia Status: Acute Assessment and Plan: Patient has chronic neck pain that had become acutely worsened over the past 2 days prior to admission Denies injury, accident, trauma Cervical CT showed pathologic T2 fracture and thoracic CT showed new lesion at T5 vertebral body Likely related to bony metastases. He will need to follow-up with his oncologist, possibly need to consider further radiation treatment May have been exacerbated by muscle strain. He did have improvement with cyclobenzaprine. Analgesics provided. Patient was no longer having response to his extended release morphine therefore was transitioned to fentanyl patch with good pain relief. Continue fentanyl patch q72h and follow up with oncology. Supportive care provided. Ice and heat as needed Overall had symtomatic improvement (3) T2 vertebral fracture: Code(s): S22.029A - Unspecified fracture of second thoracic vertebra, initial encounter for closed fracture Status: Acute Assessment and Plan: Pathologic fracture of T2 noted on cervical spine CT Secondary to known bony metastases Informed patient's oncology office of these findings. Patient received a disc with radiologic scans from this hospital stay to give to his oncologist for review. (4) Hypoxia: Code(s): R09.02 - Hypoxemia Status: Acute Assessment and Plan: Noted to be hypoxic down to 88% on admission Most likely related to pneumonia No PE on CTA No evidence of pulmonary edema on imaging. BNP normal. Required up to 2 L supplemental O2 and was able to be weaned without difficulty Maintained adequate O2 sats on room air Tolerated ambulation trial prior to discharge with O2 sats between 92-94% (5) Pneumonia: Qualifiers: Pneumonia type: due to unspecified organism Code(s): J18.9 - Pneumonia, unspecified organism Status: Acute Assessment and Plan: CXR showed mild patchy infiltrates of the bilateral lower lungs This may be related to his recent COVID illness Treated with azithromycin and Rocephin for treatment of community-acquired pneumonia. Continue PO cefdinir to complete 7 days. Low grade fever 100.4 on 11/04. He remained afebrile following. COVID-19 PCR test negative on 11/04 Influenza negative. Legionella and pneumococcal urinary antigens pending. Continue to monitor Sputum culture not performed due to oropharyngeal contamination (6) Hypothyroidism: Code(s): E03.9 - Hypothyroidism, unspecified Status: Acute Assessment and Plan: TSH is within normal limits Continue levothyroxine (7) Hypertension: Code(s): I10 - Essential (primary) hypertension Status: Acute Assessment and Plan: Blood pressures were well controlled. Continue amlodipine 10 mg daily (8) Chronic anticoagulation: Code(s): Z79.01 - terminal superintendent (current) use of anticoagulants Status: Acute Assessment and Plan: Secondary to DVT Continue with Eliquis. DS: Summary Hospital Course Hospital Course: Date of a
[2021-11-08 14:00] VITALS: BP 138/83; PULSE 81; RESP 17; TEMP 36; O2SAT 95
[2021-11-08] MEDS: AZITHROMYCIN 250 MG TABLET 500 MG PO (14:13)
[2021-11-10 14:48] LABS: Pneumococcal Antigen Urine Not Detected (Not Detected)
[2021-11-11 15:21] LABS: Legionella pneumophila Ag Ur Not Detected (Not Detected)
== END 2021-11-08 14:36 | disposition home or self-care (01) | DRG 194 ==
LOC: ANHED 13:38 → ANH3MEDSUR 16:13
PROVIDERS: Nurse Practitioner; Nurse Practitioner Adult Health; Admitting Provider Internal Medicine; Emergency Provider Emergency Medicine; Visit Provider Physician Assistant
DX: J18.9 Pneumonia, unspecified organism (principal); C79.51 Secondary malignant neoplasm of bone; C65.1 Malignant neoplasm of right renal pelvis; M84.48XA Pathological fracture, other site, initial encounter for fracture; U09.9 Post COVID-19 condition, unspecified; Z20.822 Contact with and (suspected) exposure to COVID-19; R09.02 Hypoxemia; E03.9 Hypothyroidism, unspecified; I10 Essential (primary) hypertension; Z79.01 Long term (current) use of anticoagulants; Z90.5 Acquired absence of kidney; Z98.1 Arthrodesis status; Z90.49 Acquired absence of other specified parts of digestive tract; Z90.81 Acquired absence of spleen; Z87.891 Personal history of nicotine dependence; Z86.718 Personal history of other venous thrombosis and embolism
CPT/HCPCS: 36415; 71046; 71275; 72125; 72128; 80048; 80053; 81001; 82728; 83605; 83615; 83735; 83880; 84443; 85025; 85027; 85610; 85730; 87070; 87205; 87449; 87804; 87899; 93005; 96374; 96375; 99285; A9270; C9803; J0456; J0696; J1170; J1940; J2405; J3010; J7030; Q9967; U0003; U0005

== ENCOUNTER 2021-11-16 19:25 | Emergency (ER) | payer OTHER, BC, SELFPAY ==
[2021-11-16 19:36] VITALS: BP 166/91; PULSE 77; RESP 17; TEMP 36.6; O2SAT 100
[2021-11-16 20:32] LABS: Basophils Absolute Auto 0.1 K/mm3 (0.0-0.1); Basophils Percent Auto 0.8 % (0.2-1.2); Eosinophils Absolute Auto 0.6 K/mm3 (0-0.3); Eosinophils Percent Auto 5.9 % (0-4.4); Hematocrit 41.9 % (42.0-52.0); Hemoglobin 13.7 g/dL (14.0-18.0); Immature Granulocyte Absolute 0.02 K/mm3 (0.00-0.031); Immature Granulocyte Percent A 0.2 % (0-0.5); Lymphocytes Absolute Auto 4.21 K/mm3 (0.9-3.2); Lymphocytes Percent Auto 43.3 % (18.3-44.2); Mean Corpuscular HGB Conc 32.7 g/dl (32-36); Mean Corpuscular Hemoglobin 32.5 pg (26-34); Mean Corpuscular Volume 99.3 fl (80-100); Monocytes Percent Auto 10.7 % (2.6-8.5); Neutrophils Absolute Auto 3.8 K/mm3 (1.3-6.7); Neutrophils Percent Auto 39.1 % (45.5-73.1); Platelet Count Result 749 k/mm3 (150-375); Red Blood Count 4.22 M/mm3 (4.6-6.20); Red Cell Distribution Width 15.9 % (11.5-14.5); White Blood Count 9.7 K/mm3 (4.5-10.0)
[2021-11-16 20:45] LABS: Alanine Aminotransferase 31 U/L (4-50); Albumin Level 3.9 g/dL (3.5-5.1); Alkaline Phosphatase 56 U/L (38-126); Anion Gap 6 mmol/L (8-16); Aspartate Amino Transferase 39 U/L (17-59); Bilirubin,Total 0.3 mg/dL (0.2-1.3); Blood Urea Nitrogen 19 mg/dL (9-20); Calcium 8.8 mg/dL (8.4-10.2); Carbon Dioxide 28 mmol/L (22-30); Chloride 105 mmol/L (98-107); Estimated CRCL calculation 93 ml/min; Estimated Glomerular Filt Rate > 60; Glucose 142 mg/dL (65-110); Potassium 4.5 mmol/L (3.4-5.0); Sodium 139 mmol/L (137-145)
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
== END 2021-11-16 22:40 | disposition home or self-care (01) ==
PROVIDERS: Emergency Provider Emergency Medicine
DX: Z03.89 Encounter for observation for other suspected diseases and conditions ruled out (principal); I10 Essential (primary) hypertension; E03.9 Hypothyroidism, unspecified; E27.40 Unspecified adrenocortical insufficiency; F32.9 Major depressive disorder, single episode, unspecified
CPT/HCPCS: 36415; 80053; 85025; 99283

== ENCOUNTER 2021-11-23 10:42 | Emergency (ER) | payer BC, OTHER, SELFPAY ==
[2021-11-23] VITALS (11 sets, daily range): BP systolic 84–111; BP diastolic 58–73; PULSE 69–107; RESP 14–24; TEMP 36.7–38; O2SAT 90–95
--- NOTE | ~2021-11-23 | XR_ITS ---
EXAMINATION: XR chest 2V DATE: 11/23/2021 13:11 INDICATION: Cough and fever. TECHNIQUE: Frontal and lateral views of the chest were obtained. COMPARISON: Chest 2 views 11/04/2021, chest CT 11/04/2021 FINDINGS: There is chronic marked elevation of right hemidiaphragm. There is mild atelectasis in the lower lung zones. No pleural effusion or pneumothorax. The heart size is normal. There are changes of posterior fusion procedure in cervicothoracic spine. IMPRESSION: 1. Mild atelectasis in the lower lung zones. 2. Chronic marked elevation of right hemidiaphragm. Reviewed, dictated and finalized at location A. [employer]
--- NOTE | 2021-11-23 12:59 | ED.FEVER ---
HPI - Fever General Chief Complaint: Fever Stated Complaint: weakness, high fever, COVID shot yest Time Seen by Provider: 11/23/21 12:29 Source: patient Mode of arrival: ambulatory Limitations: no limitations History of Present Illness HPI Narrative: Patient is a 7-year-old male complaining of fever that started this morning after receiving a COVID vaccine yesterday. Patient also complained of body aches and a mild headache. Patient denies any neck pain or stiffness, chest pain, shortness of breath, abdominal pain, nausea, vomiting, diarrhea or urinary symptoms. Patient states that he is currently receiving immunotherapy for stage IV cancer of his kidney. Related Data Home Medications Medication Instructions Recorded Confirmed fluoxetine 60 mg PO DAILY 04/24/20 11/04/21 trazodone 100 mg PO HS 04/24/20 11/04/21 Eliquis 5 mg PO BID 05/21/20 11/04/21 docusate sodium 100 mg PO DAILY 05/21/20 11/04/21 oxycodone 10 mg PO QID PRN 05/21/20 11/04/21 amlodipine 10 mg PO DAILY 04/28/21 11/04/21 bupropion HCl 100 mg PO BID 04/28/21 11/04/21 cabozantinib 20 mg PO QAM 04/28/21 11/04/21 hydrocortisone 20 mg PO DAILY 04/28/21 11/04/21 levothyroxine 150 mcg PO DAILY 04/28/21 11/04/21 Allergies Allergy/AdvReac Type Severity Reaction Status Date / Time No Known Allergies Allergy Mild Verified 11/04/21 19:07 Review of Systems Review of Systems: All systems reviewed & are unremarkable except as noted in HPI and below Constitutional: Constitutional: Denies excessive sweating, Denies fatigue, Denies headache(s), Denies lethargy, Denies malaise, Denies weakness and Denies weight loss Eyes: Eyes: Denies blurry vision, Denies change in vision and Denies loss of vision ENT: Denies dizziness, Denies ear discharge, Denies headache(s), Denies lip swelling, Denies epistaxis, Denies nasal congestion, Denies neck pain, Denies throat swelling and Denies tongue swelling Cardiovascular: Cardiovascular: Denies chest pain, Denies chest pain at rest, Denies chest pain with activity, Denies diaphoresis, Denies rapid heart rate, Denies edema, Denies irregular heart rhythm, Denies lightheadedness, Denies palpitations, Denies dyspnea and Denies dyspnea on exertion Respiratory: Respiratory: Denies chest congestion, Denies cough, Denies hemoptysis, Denies dyspnea and Denies dyspnea on exertion Gastrointestinal: Gastrointestinal: Denies abdominal pain, Denies melena, Denies hematochezia, Denies diarrhea, Denies nausea, Denies vomiting and Denies hematemesis Musculoskeletal: Musculoskeletal: Denies abnormal gait, Denies deformity, Denies joint swelling, Denies limited range of motion, Denies neck pain and Denies numbness Neurologic: Denies Abnormal speech present, Denies abnormal gait, Denies confusion, Denies dizziness, Denies focal weakness, Denies loss of vision, Denies numbness, Denies Other visual disturbances, Denies Sensory deficit (Neuro) and Denies weakness Psychiatric: Psychiatric: Denies confusion, Denies depression, Denies auditory hallucinations, Denies homicidal ideation and Denies suicidal ideation Endocrine: Endocrine: Denies cold intolerance, Denies excessive sweating, Denies fatigue, Denies heat intolerance and Denies palpitations Hematologic/Lymphatic: Hematologic/Lymphatic: Denies easy bleeding and Denies easy bruising Allergic/Immunologic: Allergic/Immunologic: Denies lip swelling, Denies throat swelling and Denies tongue swelling PMFSH Past Medical History Medical History Adrenal insufficiency Chronic anticoagulation Chronic back pain Deep venous thrombosis Depression History of DVT (deep vein thrombosis) Hypertension Hypothyroidism Renal cell carcinoma Status post right nephrectomy and chemotherapy. Surgical History Surgical History [place] filter in place The patient stated it was subsequently removed. History of appende
[2021-11-23] MEDS: ACETAMINOPHEN 325 MG TABLET 650 MG PO (13:16)
[2021-11-23 13:40] LABS: Basophils Absolute Auto 0.1 K/mm3 (0.0-0.1); Basophils Percent Auto 0.5 % (0.2-1.2); Eosinophils Absolute Auto 0.3 K/mm3 (0-0.3); Eosinophils Percent Auto 2.6 % (0-4.4); Hematocrit 43.6 % (42.0-52.0); Hemoglobin 14.9 g/dL (14.0-18.0); Immature Granulocyte Absolute 0.04 K/mm3 (0.00-0.031); Immature Granulocyte Percent A 0.4 % (0-0.5); Lymphocytes Absolute Auto 2.17 K/mm3 (0.9-3.2); Lymphocytes Percent Auto 20.5 % (18.3-44.2); Mean Corpuscular HGB Conc 34.2 g/dl (32-36); Mean Corpuscular Hemoglobin 32.7 pg (26-34); Mean Corpuscular Volume 95.8 fl (80-100); Mean Platelet Volume 11.3 fl (7.4-10.4); Monocytes Absolute Auto 1.2 K/mm3 (0.1-0.6); Neutrophils Absolute Auto 6.9 K/mm3 (1.3-6.7); Platelet Count Result 501 k/mm3 (150-375); Red Blood Count 4.55 M/mm3 (4.6-6.20); Red Cell Distribution Width 16.2 % (11.5-14.5); White Blood Count 10.6 K/mm3 (4.5-10.0)
[2021-11-23 13:45] LABS: Add Urine Microscopic? YES; Appearance Urine Clear (Clear); Bilirubin Urine Negative (Negative); Blood Urine 1+ (Negative); Color Urine Yellow (Yellow); Glucose Urine UA Negative (Negative); Ketones Urine Negative (Negative); Leukocyte Esterase Ur Negative LEU/UL (Negative); Mucus Urine Rare /lpf; Nitrate Urine Negative (Negative); Protein Urine Negative (Negative); Squamous Epithelial Cell Urine Rare /hpf (Few); Urobilinogen Urine Negative mg/dL (<2.0); WBC Urine 0-3 /hpf
[2021-11-23] MEDS: SODIUM CHLORIDE 0.9% IV 1,000 ML 999 ML (14:31)
[2021-11-23] MEDS: LACTATED RINGERS 1,000 ML 999 ML IV CONT (15:00)
[2021-11-23 15:06] LABS: Alanine Aminotransferase 30 U/L (4-50); Albumin Level 3.7 g/dL (3.5-5.1); Alkaline Phosphatase 50 U/L (38-126); Anion Gap 7 mmol/L (8-16); Aspartate Amino Transferase 37 U/L (17-59); Bilirubin,Total 0.6 mg/dL (0.2-1.3); Blood Urea Nitrogen 25 mg/dL (9-20); Calcium 8.5 mg/dL (8.4-10.2); Carbon Dioxide 28 mmol/L (22-30); Chloride 99 mmol/L (98-107); Estimated CRCL calculation 63 ml/min; Estimated Glomerular Filt Rate 56; Glucose 93 mg/dL (65-110); Potassium 4.2 mmol/L (3.4-5.0); Sodium 134 mmol/L (137-145)
[2021-11-23 15:08] LABS: Lactic Acid Reflex 1.4 mmol/L (0.7-2.1)
[2021-11-23] MEDS: SODIUM CHLORIDE 0.9% IV 1,000 ML 999 ML IV CONT (17:05)
== END 2021-11-23 18:18 | disposition home or self-care (01) ==
PROVIDERS: Emergency Provider Emergency Medicine
DX: R50.9 Fever, unspecified (principal); C64.1 Malignant neoplasm of right kidney, except renal pelvis; Z92.21 Personal history of antineoplastic chemotherapy; Z90.5 Acquired absence of kidney; E03.9 Hypothyroidism, unspecified; I10 Essential (primary) hypertension; E27.40 Unspecified adrenocortical insufficiency; Z86.718 Personal history of other venous thrombosis and embolism; Z87.891 Personal history of nicotine dependence; Z79.01 Long term (current) use of anticoagulants
CPT/HCPCS: 36415; 71046; 80053; 81001; 83605; 85025; 87040; 87804; 96361; 96365; 99284; A9270; J0696; J7030; J7120

== ENCOUNTER 2022-01-17 05:05 | Inpatient (IN) | payer OTHER, BC, SELFPAY ==
[2022-01-17] VITALS (16 sets, daily range): BP systolic 117–164; BP diastolic 83–105; PULSE 82–88; RESP 16–22; TEMP 36.1–36.8; O2SAT 89–100; BMI 28.8
--- NOTE | ~2022-01-17 | CT_ITS ---
EXAMINATION: CT abdomen pelvis w con DATE: 01/17/2022 06:19 INDICATION: Right upper quadrant abdominal pain TECHNIQUE: Computed tomography (CT) of the abdomen and pelvis was performed with 100 mL Omnipaque-350 intravenous contrast. Automated exposure control and iterative reconstruction technique were employe d. The dose-length product was 1112.47 mGy-cm. COMPARISON: 04/28/2021 FINDINGS: Minimal dependent atelectasis in bilateral lower lobes. Heart size is normal. Atherosclerotic coronar y artery calcific location. No pericardial or pleural effusion. Gallbladder is dilated to 4.5 cm in m aximal diameter with mild gallbladder wall thickening which raises some suspicion for acute cholecyst itis. 9 mm hepatic cyst. Pancreas and bilateral adrenal glands are normal. Spleen and right kidney ar e not visualized and likely surgically absent. 2 mm nonobstructing stone at a lower pole calyx of the left kidney. 9 mm left renal cyst. No abnormal bowel wall thickening or obstruction. The appendix is not visualized. No pericecal inflammatory change to suggest acute appendicitis. 2 mm stone in the de pendent midline of the bladder. Prostatomegaly. No free intraperitoneal gas or fluid. No pathological ly enlarged abdominal or pelvic lymphadenopathy. Small fat-containing left inguinal hernia. Mild dege nerative skeletal changes in the pelvis and visualized spine. IMPRESSION: 1. Mildly dilated gallbladder with mild wall thickening which does raise some suspicion for possible acute cholecystitis. Correlate for Long sign and if clinically indicated consider either right uppe r quadrant ultrasound or HIDA scan for further evaluation. 2. 2 mm nonobstructing left renal stone. 3. Prostatomegaly. 4. Small fat-containing left inguinal hernia. Reviewed, dictated and finalized at location A. IMPRESSION: 1. Mildly dilated gallbladder with mild wall thickening which does raise some s uspicion for possible acute cholecystitis. Correlate for Long sign and if cli nically indicated consider either right upper quadrant ultrasound or HIDA scan for further evaluation. 2. 2 mm nonobstructing left renal stone. 3. Prostatomegaly. 4. Small fat-containing left inguinal hernia.
--- NOTE | ~2022-01-17 | US_ITS ---
EXAMINATION: US right upper quadrant DATE: 01/17/2022 08:08 INDICATION: Right upper quadrant abdominal pain. TECHNIQUE: Multiple grayscale and Doppler ultrasound images of the abdomen were obtained. COMPARISON: CT abdomen and pelvis 01/17/2022, ultrasound 04/28/2021. FINDINGS: The pancreas is obscured by bowel gas. The liver is normal without focal lesion. The gallbl adder is distended and filled with sludge. No definite gallstones. Gallbladder wall thickening is not ed. No sonographic Long sign. The common duct is normal and measures 4 mm. IMPRESSION: 1. Distended gallbladder with sludge and gallbladder wall thickening, but no definite gallstones or s onographic Long sign. These findings are indeterminate for acute cholecystitis. Consider hepatobili arvin scintigraphy. Reviewed, dictated and finalized at location B. IMPRESSION: 1. Distended gallbladder with sludge and gallbladder wall thickening, but no de finite gallstones or sonographic Long sign. These findings are indeterminate for acute cholecystitis. Consider hepatobiliary scintigraphy.
[2022-01-17] MEDS: SODIUM CHLORIDE 0.9% IV 1,000 ML 999 ML IV CONT (05:22)
[2022-01-17] MEDS: ONDANSETRON INJ 4 MG/2 ML VIAL IV PUSH (05:22)
[2022-01-17] MEDS: MORPHINE SULFATE (*CRX) 4 MG/ML INJ IV PUSH (05:23)
[2022-01-17 05:30] LABS: Basophils Absolute Auto 0.1 K/mm3 (0.0-0.1); Basophils Percent Auto 0.5 % (0.2-1.2); Eosinophils Absolute Auto 0.8 K/mm3 (0-0.3); Eosinophils Percent Auto 5.3 % (0-4.4); Hemoglobin 13.4 g/dL (14.0-18.0); Immature Granulocyte Absolute 0.03 K/mm3 (0.00-0.031); Immature Granulocyte Percent A 0.2 % (0-0.5); Lymphocytes Absolute Auto 6.92 K/mm3 (0.9-3.2); Lymphocytes Percent Auto 49.4 % (18.3-44.2); Mean Corpuscular HGB Conc 32.7 g/dl (32-36); Mean Corpuscular Hemoglobin 30.9 pg (26-34); Mean Corpuscular Volume 94.5 fl (80-100); Mean Platelet Volume 9.5 fl (7.4-10.4); Monocytes Absolute Auto 1.8 K/mm3 (0.1-0.6); Neutrophils Absolute Auto 4.4 K/mm3 (1.3-6.7); Neutrophils Percent Auto 31.6 % (45.5-73.1); Platelet Count Result 489 k/mm3 (150-375); Red Blood Count 4.34 M/mm3 (4.6-6.20); Red Cell Distribution Width 14.6 % (11.5-14.5)
[2022-01-17 05:42] LABS: Alanine Aminotransferase 35 U/L (4-50); Alkaline Phosphatase 49 U/L (38-126); Anion Gap 6 mmol/L (8-16); Aspartate Amino Transferase 45 U/L (17-59); Bilirubin,Total 0.4 mg/dL (0.2-1.3); Blood Urea Nitrogen 11 mg/dL (9-20); Calcium 8.6 mg/dL (8.4-10.2); Carbon Dioxide 30 mmol/L (22-30); Chloride 101 mmol/L (98-107); Estimated CRCL calculation 99 ml/min; Estimated Glomerular Filt Rate > 60; Glucose 97 mg/dL (65-110); Lipase 111 U/L (23-300); Potassium 3.3 mmol/L (3.4-5.0); Sodium 137 mmol/L (137-145)
--- NOTE | 2022-01-17 05:46 | ED.ABDPAIN ---
HPI - Abdominal Pain General Chief Complaint: Abdominal Pain <Benji Morse MD - Last Filed: 01/17/22 07:00> Stated Complaint: abd pain x 4 hours <Benji Morse MD - Last Filed: 01/17/22 07:00> History of Present Illness HPI narrative: Patient is a 61-year-old male who presents ER with epigastric/right upper quadrant abdominal pain. Reports its been intermittent for several days but feels worse for the last 4 hours. Not associate with eating or drinking. Reports she does have a lot of gas related to this. No diarrhea. Denies fevers or chills or sweats. Patient has history of renal cell carcinoma with metastases. Is undergone nephrectomy. Gets immunotherapy at [facility]. 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 Denies constipation, had a bowel movement 2 times today. Takes fentanyl/morphine/oxycodone chronically for pain. <Benji Morse MD - Last Filed: 01/17/22 07:00> Related Data Home Medications: Home Medications Medication Instructions Recorded Confirmed fluoxetine 60 mg PO DAILY 04/24/20 11/04/21 trazodone 100 mg PO HS 04/24/20 11/04/21 Eliquis 5 mg PO BID 05/21/20 11/04/21 docusate sodium 100 mg PO DAILY 05/21/20 11/04/21 oxycodone 10 mg PO QID PRN 05/21/20 11/04/21 amlodipine 10 mg PO DAILY 04/28/21 11/04/21 bupropion HCl 100 mg PO BID 04/28/21 11/04/21 cabozantinib 20 mg PO QAM 04/28/21 11/04/21 hydrocortisone 20 mg PO DAILY 04/28/21 11/04/21 levothyroxine 150 mcg PO DAILY 04/28/21 11/04/21 <Benji Morse MD - Last Filed: 01/17/22 07:00> Allergies/Adverse Reactions: Allergies Allergy/AdvReac Type Severity Reaction Status Date / Time No Known Allergies Allergy Mild Verified 01/17/22 05:10 <Benji Morse MD - Last Filed: 01/17/22 07:00> Review of Systems Review of Systems: All systems reviewed & are unremarkable except as noted in HPI and below <Benji Morse MD - Last Filed: 01/17/22 07:00> Constitutional: Constitutional: Denies chills, Denies fever(s) and Denies weakness <Benji Morse MD - Last Filed: 01/17/22 07:00> ENT: Denies nasal congestion and Denies sore throat <Benji Morse MD - Last Filed: 01/17/22 07:00> Cardiovascular: Cardiovascular: Denies chest pain, Denies rapid heart rate and Denies radiating jaw, neck or arm pain <Benji Morse MD - Last Filed: 01/17/22 07:00> Respiratory: Respiratory: Denies cough and Denies dyspnea <Benji Morse MD - Last Filed: 01/17/22 07:00> Gastrointestinal: Gastrointestinal: Reports abdominal pain, Denies constipation, Denies nausea and Denies vomiting <Benji Morse MD - Last Filed: 01/17/22 07:00> Comments: Flatulence <Benji Morse MD - Last Filed: 01/17/22 07:00> Musculoskeletal: Musculoskeletal: Denies back pain and Denies arthralgias <Benji Morse MD - Last Filed: 01/17/22 07:00> Neurologic: Denies headache(s), Denies focal weakness and Denies numbness <Benji Morse MD - Last Filed: 01/17/22 07:00> PMFSH Past Medical History Medical History: Medical History Adrenal insufficiency Chronic anticoagulation Chronic back pain Deep venous thrombosis Depression History of DVT (deep vein thrombosis) Hypertension Hypothyroidism Renal cell carcinoma Status post right nephrectomy and chemotherapy. <Benji Morse MD - Last Filed: 01/17/22 07:00> Surgical History Surgical History: Surgical History [place] filter in place The patient stated it was subsequently removed. History of appendectomy Open appendectomy as a child History of arthroscopic knee surgery History of inguinal hernia repair 2 previous inguinal hernia repairs, one on left and one on right. History of right nephrectomy (04/2020) April 2020 - INES right nephrectomy and also spinal surgery to remove a metastatic tumor that was
[2022-01-17 05:52] LABS: Acanthocytes 1+ (NORMAL); Ovalocytes 1+ (NORMAL); Platelet Estimate Adequate (Adequate); Poikilocytosis 1+ (NORMAL)
[2022-01-17] MEDS: HYDROmorphone HCL INJ (*CRX) 1 MG/ML SYR IV PUSH ×5 (08:31→21:50)
[2022-01-17] MEDS: HYDROmorphone HCL INJ (*CRX) 1 MG/ML SYR 0.5 MG IV PUSH (09:22)
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
--- NOTE | 2022-01-17 13:15 | ADMGEN ---
This patient, Real Pimentel, was admitted to [facility] S[facility] Room 313-01. Patient/family oriented to hospital policies and general routines including ID bracelet, bed and alarms, visiting hours, pain management, procedures, bathroom and other care routines, personal items, smoking policy, room service/diet, and visiting hours. Information on how to activate the Rapid Response Team has been discussed. Patient/Family are encouraged to report perceived risks to care and to ask questions if they do not understand what they are told or what they should do.
[2022-01-17] MEDS: SODIUM CHLORIDE 0.9% IV 1,000 ML 125 ML IV CONT (13:32)
[2022-01-17] MEDS: KCL 20 MEQ/SW 100 ML 100 ML 50 MEQ IVPB (14:00)
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
[2022-01-17] MEDS: ACETAMINOPHEN 325 MG TABLET 650 MG PO (21:48)
[2022-01-18] MEDS: SODIUM CHLORIDE 0.9% IV 1,000 ML 125 ML IV CONT ×3 (00:27→23:22)
[2022-01-18] MEDS: HYDROmorphone HCL INJ (*CRX) 1 MG/ML SYR IV PUSH ×6 (00:46→23:26)
[2022-01-18 06:00] VITALS: BP 132/85; PULSE 84; RESP 18; TEMP 36.4; O2SAT 97
[2022-01-18 06:15] LABS: Basophils Absolute Auto 0.1 K/mm3 (0.0-0.1); Basophils Percent Auto 0.6 % (0.2-1.2); Eosinophils Absolute Auto 0.6 K/mm3 (0-0.3); Hematocrit 40.9 % (42.0-52.0); Immature Granulocyte Absolute 0.01 K/mm3 (0.00-0.031); Immature Granulocyte Percent A 0.1 % (0-0.5); Lymphocytes Absolute Auto 4.26 K/mm3 (0.9-3.2); Lymphocytes Percent Auto 43.3 % (18.3-44.2); Mean Corpuscular HGB Conc 34.2 g/dl (32-36); Mean Corpuscular Hemoglobin 31.5 pg (26-34); Mean Corpuscular Volume 92.1 fl (80-100); Mean Platelet Volume 9.1 fl (7.4-10.4); Monocytes Absolute Auto 1.6 K/mm3 (0.1-0.6); Monocytes Percent Auto 15.9 % (2.6-8.5); Neutrophils Absolute Auto 3.4 K/mm3 (1.3-6.7); Neutrophils Percent Auto 34.1 % (45.5-73.1); Platelet Count Result 499 k/mm3 (150-375); Red Blood Count 4.44 M/mm3 (4.6-6.20); Red Cell Distribution Width 14.7 % (11.5-14.5); White Blood Count 9.8 K/mm3 (4.5-10.0)
[2022-01-18 06:28] LABS: Alanine Aminotransferase 32 U/L (4-50); Albumin Level 3.6 g/dL (3.5-5.1); Alkaline Phosphatase 49 U/L (38-126); Anion Gap 10 mmol/L (8-16); Aspartate Amino Transferase 42 U/L (17-59); Bilirubin,Total 0.6 mg/dL (0.2-1.3); Blood Urea Nitrogen 9 mg/dL (9-20); Calcium 8.4 mg/dL (8.4-10.2); Carbon Dioxide 24 mmol/L (22-30); Chloride 103 mmol/L (98-107); Estimated CRCL calculation 89 ml/min; Estimated Glomerular Filt Rate > 60; Glucose 86 mg/dL (65-110); Magnesium 1.6 mg/dL (1.6-2.3); Potassium 3.7 mmol/L (3.4-5.0); Sodium 137 mmol/L (137-145)
[2022-01-18 08:07] VITALS: O2SAT 94
--- NOTE | 2022-01-18 10:03 | PM.IMPN ---
Progress Note: A&P Assessment and Plan (1) Abdominal pain, acute, right upper quadrant: Code(s): R10.11 - Right upper quadrant pain Status: Acute Assessment and Plan: CT of abdomen and pelvis and ultrasound right upper quadrant have been performed. General surgery has been consult and appreciate further recommendations. Continue IV hydration started IV antibiotics. Patient is immunocompromised with chemotherapy and steroid patient also at risk of adrenal crisis will start stress dose steroid today. (2) Hypokalemia: Code(s): E87.6 - Hypokalemia Status: Acute Assessment and Plan: Replaced (3) Hypertension: Code(s): I10 - Essential (primary) hypertension Status: Acute Assessment and Plan: Monitor continue current treatment (4) Renal cell carcinoma: Code(s): C64.9 - Malignant neoplasm of unspecified kidney, except renal pelvis Status: Acute Assessment and Plan: Patient states he does continue to receive monthly chemo at the [facility] in [place]. Patient can follow as outpatient. Resume home medication (5) Chronic anticoagulation: Code(s): Z79.01 - buttermaker helper (current) use of anticoagulants Status: Acute Assessment and Plan: Patient takes Eliquis for history of DVT. Patient does have an IVC filter in place also. At this point time will hold patient's Eliquis until he is seen by General surgery and decision is made regarding surgery. Will have SCDs placed to bilateral lower extremities. (6) Adrenal insufficiency: Code(s): E27.40 - Unspecified adrenocortical insufficiency Status: Acute Assessment and Plan: Will start stress dose steroid patient at high risk for adrenal crisis Subjective Date/time seen: 01/18/22 10:03 Interval history: 61 years old male with past medical history of renal cell carcinoma status post nephrectomy and chemotherapy adrenal is insufficiency on oral steroid DVT on Eliquis presented to the hospital with abdominal pain patient was found to have acute calculous cholecystitis surgery was consulted since patient on oral anticoagulation surgery will be postponed did probably and till 01/19/2022 Patient feels weak still complaining of abdominal pain Patient denies fever headache chest pain shortness of breath I am seeing the patient for abdominal pain Exam Narrative: Alert Chest decreased air entry bilateral Abdomen right hypochondrial tenderness CVS S1 + S2 Negative Lower extremity edema Objective Data Vital Signs Vital Signs: Vital Signs - 24 hr 01/17/22 11:12 01/17/22 11:16 01/17/22 11:31 Temperature Pulse Rate Respiratory Rate Blood Pressure 145/105 H 160/101 H 152/101 H Pulse Oximetry 96 97 89 L 01/17/22 11:46 01/17/22 13:37 01/17/22 13:38 Temperature 97.7 F 97.7 F Pulse Rate 88 88 Respiratory Rate 22 H 22 H Blood Pressure 141/98 H 129/98 H 129/98 H Pulse Oximetry 89 L 100 100 01/17/22 20:13 01/17/22 21:58 01/18/22 06:00 Temperature 97.0 F L 97.6 F Pulse Rate 86 84 Respiratory Rate 18 18 Blood Pressure 117/83 132/85 Pulse Oximetry 94 95 97 01/18/22 08:07 Temperature Pulse Rate Respiratory Rate Blood Pressure Pulse Oximetry 94 Intake/Output Intake/Output: Intake & Output 01/15/22 01/16/22 01/17/22 01/18/22 23:59 23:59 23:59 23:59 Intake Total 2336 1240 Output Total 475 Balance 2336 765 Meds/Results Medications: Active Medications Generic Name Dose Route Start Last Admin Trade Name Freq PRN Reason Stop Dose Admin Acetaminophen 650 mg 01/17/22 21:01 01/17/22 21:48 Acetaminophen 325 Mg Tablet PO 650 mg Q6H PRN Administration Mild Pain (1-3) or Fever Bupropion HCl 150 mg 01/18/22 17:00 Bupropion Hcl Sr (12 Hr) 150 Mg Tab PO BID TRENT Fluoxetine HCl 60 mg 01/19/22 09:00 Fluoxetine Hcl 20 Mg Capsule PO DAILY TRENT Hydromorphone HCl 1 mg 01/17/22 20:59 01/18/22
[2022-01-18] MEDS: MORPHINE SULFATE (*CRX) 15 MG TAB IR 30 MG PO (10:49)
[2022-01-18] MEDS: FLUoxetine HCL 20 MG CAPSULE 60 MG PO (10:50)
[2022-01-18] MEDS: polyethylene glycoL 3350 17 GM POWD.PACK PO (10:50)
[2022-01-18] MEDS: buPROPion HCL SR (12 HR) 150 MG TAB PO ×2 (10:50→20:47)
[2022-01-18] MEDS: PANTOPRAZOLE 40 MG TABLET PO (10:50)
[2022-01-18] MEDS: LEVOTHYROXINE SODIUM 150 MCG TABLET PO (10:50)
[2022-01-18] MEDS: cefTRIAXone 2 GM in SODIUM CHLORIDE 0.9% IV 100 ML 200 ML IVPB (10:51)
--- NOTE | 2022-01-18 11:39 | PM.PNGS ---
Progress Note: A&P Assessment and Plan (1) Acute cholecystitis: Code(s): K81.0 - Acute cholecystitis Status: Acute Assessment and Plan: Still having abdominal pain. Will try low fat diet today. Discussed with patient that there are surgical risks with him having metastatic renal cell carcinoma and being on immunotherapy. Will try to discuss with his oncologist. If symptoms are not improving, might have to consider proceeding with laparoscopic cholecystectomy, possible open tomorrow. Continue holding Eliquis for now. (2) Metastatic renal cell carcinoma to bone: Code(s): C79.51 - Secondary malignant neoplasm of bone; C64.9 - Malignant neoplasm of unspecified kidney, except renal pelvis Status: Acute (3) Chronic anticoagulation: Code(s): Z79.01 - terminal block assembler (current) use of anticoagulants Status: Acute (4) Adrenal insufficiency: Code(s): E27.40 - Unspecified adrenocortical insufficiency Status: Acute Subjective Subjective Date/Time Seen: 01/18/22 11:39 Interval history: Still having RUQ pain. No nausea/vomiting. Feeling a little hungry. Tolerated clears. Exam GI: GI Palp: Yes Soft to palpation and Yes Tenderness to palpation present (GI) (RUQ) Percussion: Yes normal to percussion Objective Data Vital Signs Vital Signs: Vital Signs - 24 hr 01/17/22 11:46 01/17/22 13:37 01/17/22 13:38 Temperature 36.5 C 36.5 C Pulse Rate 88 88 Respiratory Rate 22 H 22 H Blood Pressure 141/98 H 129/98 H 129/98 H Pulse Oximetry 89 L 100 100 01/17/22 20:13 01/17/22 21:58 01/18/22 06:00 Temperature 36.1 C L 36.4 C Pulse Rate 86 84 Respiratory Rate 18 18 Blood Pressure 117/83 132/85 Pulse Oximetry 94 95 97 01/18/22 08:07 Temperature Pulse Rate Respiratory Rate Blood Pressure Pulse Oximetry 94 Intake/Output Intake/Output: Intake & Output 01/15/22 01/16/22 01/17/22 01/18/22 23:59 23:59 23:59 23:59 Intake Total 2336 1340 Output Total 475 Balance 2336 865 Meds/Results Medications: Active Medications Generic Name Dose Route Start Last Admin Trade Name Freq PRN Reason Stop Dose Admin Acetaminophen 650 mg 01/17/22 21:01 01/17/22 21:48 Acetaminophen 325 Mg Tablet PO 650 mg Q6H PRN Administration Mild Pain (1-3) or Fever Bupropion HCl 150 mg 01/18/22 09:00 01/18/22 10:50 Bupropion Hcl Sr (12 Hr) 150 Mg Tab PO 150 mg Q12HR TRENT Administration Fluoxetine HCl 60 mg 01/18/22 09:00 01/18/22 10:50 Fluoxetine Hcl 20 Mg Capsule PO 60 mg DAILY TRENT Administration Hydrocortisone 15 mg 01/18/22 09:00 01/18/22 10:20 Hydrocortisone 5 Mg Tablet PO 02/18/22 08:59 Not Given DAILY TRENT Hydrocortisone Sodium Succinate 50 mg 01/18/22 14:00 Hydrocortisone Sodium Succinate 100 Mg/2 Ml Vial IV PUSH Q8HR TRENT Hydromorphone HCl 1 mg 01/17/22 20:59 01/18/22 08:44 Hydromorphone Hcl Inj (*Crx) 1 Mg/Ml Syr IV PUSH 1 mg Q2HR PRN Administration Pain Rated 7-10 Sodium Chloride 1,000 mls @ 125 mls/hr 01/17/22 11:15 01/18/22 08:44 Normal Saline Iv IV CONT 125 mls/hr .Q8H TRENT Administration Ceftriaxone Sodium 2 gm/ 100 mls @ 200 mls/hr 01/18/22 10:05 01/18/22 11:21 Sodium Chloride IVPB Infused DAILY TRENT Infusion Levothyroxine Sodium 150 mcg 01/18/22 06:30 01/18/22 10:50 Levothyroxine Sodium 150 Mcg Tablet PO 150 mcg DAILY@0630 TRENT Administration Miscellaneous Information 0 each 01/18/22 00:01 Patient Will Bring Cabozantinib From Home Per Dr. Smith - Please Send To Pharmacy To XX 02/17/22 00:00 CLARIFY TRENT Morphine Sulfate 30 mg 01/18/22 09:59 01/18/22 10:49 Morphine Sulfate (*Crx) 15 Mg Tab Ir PO 30 mg Q8H PRN Administration MODERATE PAIN Non-Formulary Medication 20 mg 01/19/22 09:00 Cabozantinib PO 02/18/22 08:59 QAM TRENT Ondansetron HCl 4 mg 01/17/22 11:12 Ondansetron Inj 4 Mg/2 Ml Vial IV PUSH Q4H
[2022-01-18] MEDS: ACETAMINOPHEN 325 MG TABLET 650 MG PO (12:13)
[2022-01-18 14:00] VITALS: BP 126/81; PULSE 78; RESP 19; TEMP 37.2; O2SAT 92
[2022-01-18] MEDS: HYDROCORTISONE SODIUM SUCCINATE 100 MG/2 ML VIAL 50 MG IV PUSH ×2 (17:11→20:49)
[2022-01-18] MEDS: traZODone HCL 50 MG TABLET 100 MG PO (20:48)
[2022-01-18 21:00] VITALS: BP 127/83; PULSE 82; RESP 14; TEMP 36.7; O2SAT 94
[2022-01-19] VITALS (17 sets, daily range): BP systolic 121–157; BP diastolic 62–96; PULSE 71–90; RESP 16–22; TEMP 36.1–37.3; O2SAT 86–98
[2022-01-19] MEDS: HYDROmorphone HCL INJ (*CRX) 1 MG/ML SYR IV PUSH ×4 (02:56→18:46)
[2022-01-19] MEDS: LEVOTHYROXINE SODIUM 150 MCG TABLET PO (05:14)
[2022-01-19] MEDS: HYDROCORTISONE SODIUM SUCCINATE 100 MG/2 ML VIAL 50 MG IV PUSH ×2 (05:14→21:26)
[2022-01-19] MEDS: MORPHINE SULFATE (*CRX) 15 MG TAB IR 30 MG PO (05:21)
[2022-01-19] MEDS: SODIUM CHLORIDE 0.9% IV 1,000 ML 125 ML IV CONT (08:31)
[2022-01-19] MEDS: cefTRIAXone 2 GM in SODIUM CHLORIDE 0.9% IV 100 ML 200 ML IVPB (08:37)
[2022-01-19] MEDS: FLUoxetine HCL 20 MG CAPSULE 60 MG PO (08:47)
[2022-01-19] MEDS: PANTOPRAZOLE 40 MG TABLET PO (08:48)
[2022-01-19] MEDS: buPROPion HCL SR (12 HR) 150 MG TAB PO ×2 (08:48→21:26)
--- NOTE | 2022-01-19 09:40 | PM.IMPN ---
Progress Note: A&P Assessment and Plan (1) Abdominal pain, acute, right upper quadrant: Code(s): R10.11 - Right upper quadrant pain Status: Acute Assessment and Plan: CT of abdomen and pelvis and ultrasound right upper quadrant have been performed. General surgery has been consult and appreciate further recommendations. Continue IV hydration started IV antibiotics. Patient is immunocompromised with chemotherapy and steroid patient also at risk of adrenal crisis continue stress dose steroids for 24 hours after surgery then resume oral steroid replacement. (2) Hypokalemia: Code(s): E87.6 - Hypokalemia Status: Acute Assessment and Plan: Replaced. (3) Hypertension: Code(s): I10 - Essential (primary) hypertension Status: Acute Assessment and Plan: Monitor continue current treatment (4) Renal cell carcinoma: Code(s): C64.9 - Malignant neoplasm of unspecified kidney, except renal pelvis Status: Acute Assessment and Plan: Patient states he does continue to receive monthly chemo at the in [place]. Patient can follow as outpatient. Resume home medication (5) Chronic anticoagulation: Code(s): Z79.01 - termite treater helper (current) use of anticoagulants Status: Acute Assessment and Plan: Patient takes Eliquis for history of DVT. Patient does have an IVC filter in place also. At this point time will hold patient's Eliquis until he is seen by General surgery and decision is made regarding surgery. SCDs placed to bilateral lower extremities. (6) Adrenal insufficiency: Code(s): E27.40 - Unspecified adrenocortical insufficiency Status: Acute Assessment and Plan: Continue stress dose steroid patient at high risk for adrenal crisis as above Subjective Date/time seen: 01/19/22 09:40 Interval history: 61 years old male with past medical history of renal cell carcinoma status post nephrectomy and chemotherapy adrenal is insufficiency on oral steroid DVT on Eliquis presented to the hospital with abdominal pain patient was found to have acute calculous cholecystitis surgery was consulted since patient on oral anticoagulation surgery will be postponed did probably and till 01/19/2022 Patient feels weak still complaining of abdominal pain Patient denies fever headache chest pain shortness of breath I am seeing the patient for abdominal pain Exam Narrative: Alert Chest decreased air entry bilateral Abdomen right hypochondrial tenderness CVS S1 + S2 Negative Lower extremity edema Objective Data Vital Signs Vital Signs: Vital Signs - 24 hr 01/18/22 14:00 05/03/22 21:00 01/19/22 05:37 Temperature 98.9 F 98.1 F 97.5 F L Pulse Rate 78 82 85 Respiratory Rate 19 14 16 Blood Pressure 126/81 127/83 121/62 Pulse Oximetry 92 94 95 01/19/22 07:58 Temperature Pulse Rate Respiratory Rate Blood Pressure Pulse Oximetry 95 Intake/Output Intake/Output: Intake & Output 01/16/22 01/17/22 01/18/22 01/19/22 23:59 23:59 23:59 23:59 Intake Total 2336 2660 1000 Output Total 1875 75 Balance 2336 781 925 Meds/Results Medications: Active Medications Generic Name Dose Route Start Last Admin Trade Name Freq PRN Reason Stop Dose Admin Acetaminophen 650 mg 01/17/22 21:01 01/18/22 12:13 Acetaminophen 325 Mg Tablet PO 650 mg Q6H PRN Administration Mild Pain (1-3) or Fever Bupropion HCl 150 mg 01/18/22 09:00 01/19/22 08:48 Bupropion Hcl Sr (12 Hr) 150 Mg Tab PO 150 mg Q12HR TRENT Administration Fluoxetine HCl 60 mg 01/18/22 09:00 01/19/22 08:47 Fluoxetine Hcl 20 Mg Capsule PO 60 mg DAILY TRENT Administration Hydrocortisone 15 mg 01/18/22 09:00 01/18/22 10:20 Hydrocortisone 5 Mg Tablet PO 02/18/22 08:59 Not Given DAILY TRENT Hydrocortisone Sodium Succinate 50 mg 01/18/22 14:00 01/19/22 05:14 Hydrocortisone Sodium Succinate 100 Mg/2 Ml Vial IV PUSH 50 m
--- NOTE | 2022-01-19 09:50 | PM.PNGS ---
Progress Note: A&P Assessment and Plan (1) Acute cholecystitis: Code(s): K81.0 - Acute cholecystitis Status: Acute Assessment and Plan: Patient continues to have some abdominal pain. Eliquis has now been held for 2 days. Will plan to proceed with laparoscopic cholecystectomy, possible open today. Procedure, risks, benefits, and alternatives discussed with patient. Questions answered. (2) Metastatic renal cell carcinoma to bone: Code(s): C79.51 - Secondary malignant neoplasm of bone; C64.9 - Malignant neoplasm of unspecified kidney, except renal pelvis Status: Acute (3) Chronic anticoagulation: Code(s): Z79.01 - terminal supervisor (current) use of anticoagulants Status: Acute (4) Adrenal insufficiency: Code(s): E27.40 - Unspecified adrenocortical insufficiency Status: Acute Subjective Subjective Date/Time Seen: 01/19/22 09:50 Interval history: Patient still having some RUQ pain. States he wants to proceed with surgery today. Exam GI: GI Palp: Yes Tenderness to palpation present (GI) (RUQ) and No Guarding due to palpation present (GI) Objective Data Vital Signs Vital Signs: Vital Signs - 24 hr 01/18/22 14:00 01/18/22 21:00 01/19/22 05:37 Temperature 37.2 C 36.7 C 36.4 C L Pulse Rate 78 82 85 Respiratory Rate 19 14 16 Blood Pressure 126/81 127/83 121/62 Pulse Oximetry 92 94 95 01/19/22 07:58 Temperature Pulse Rate Respiratory Rate Blood Pressure Pulse Oximetry 95 Intake/Output Intake/Output: Intake & Output 01/16/22 01/17/22 01/18/22 01/19/22 23:59 23:59 23:59 23:59 Intake Total 2336 2660 1000 Output Total 1875 75 Balance 2336 785 925 Meds/Results Medications: Active Medications Generic Name Dose Route Start Last Admin Trade Name Freq PRN Reason Stop Dose Admin Acetaminophen 650 mg 01/17/22 21:01 01/18/22 12:13 Acetaminophen 325 Mg Tablet PO 650 mg Q6H PRN Administration Mild Pain (1-3) or Fever Bupropion HCl 150 mg 01/18/22 09:00 01/19/22 08:48 Bupropion Hcl Sr (12 Hr) 150 Mg Tab PO 150 mg Q12HR TRENT Administration Fluoxetine HCl 60 mg 01/18/22 09:00 01/19/22 08:47 Fluoxetine Hcl 20 Mg Capsule PO 60 mg DAILY TRENT Administration Hydrocortisone 15 mg 01/18/22 09:00 01/18/22 10:20 Hydrocortisone 5 Mg Tablet PO 02/18/22 08:59 Not Given DAILY TRENT Hydrocortisone Sodium Succinate 50 mg 01/18/22 14:00 01/19/22 05:14 Hydrocortisone Sodium Succinate 100 Mg/2 Ml Vial IV PUSH 50 mg Q8HR TRENT Administration Hydromorphone HCl 1 mg 01/17/22 20:59 01/19/22 08:31 Hydromorphone Hcl Inj (*Crx) 1 Mg/Ml Syr IV PUSH 1 mg Q2HR PRN Administration Pain Rated 7-10 Sodium Chloride 1,000 mls @ 125 mls/hr 01/17/22 11:15 01/19/22 08:31 Normal Saline Iv IV CONT 125 mls/hr .Q8H TRENT Administration Ceftriaxone Sodium 2 gm/ 100 mls @ 200 mls/hr 01/18/22 10:05 01/19/22 08:37 Sodium Chloride IVPB 200 mls/hr DAILY TRENT Administration Levothyroxine Sodium 150 mcg 01/18/22 06:30 01/19/22 05:14 Levothyroxine Sodium 150 Mcg Tablet PO 150 mcg DAILY@0630 TRENT Administration Morphine Sulfate 30 mg 01/18/22 09:59 01/19/22 05:21 Morphine Sulfate (*Crx) 15 Mg Tab Ir PO 30 mg Q8H PRN Administration MODERATE PAIN Ondansetron HCl 4 mg 01/17/22 11:12 Ondansetron Inj 4 Mg/2 Ml Vial IV PUSH Q4H PRN Nausea Pantoprazole Sodium 40 mg 01/18/22 09:00 01/19/22 08:48 Pantoprazole 40 Mg Tablet PO 40 mg QAM TRENT Administration Polyethylene Glycol 17 gm 01/18/22 09:00 01/19/22 08:29 Polyethylene Glycol 3350 17 Gm Powd.Pack PO Not Given DAILY TRENT Trazodone HCl 100 mg 01/18/22 21:00 01/18/22 20:48 Trazodone Hcl 50 Mg Tablet PO 100 mg HS TRENT Administration Radiology Results: ITS Impressions Abdomen/Pelvis CT 01/17/22 06:42 IMPRESSION: 1. Mildly dilated gallbladder with mild wall thickening which does raise
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
--- NOTE | 2022-01-19 14:13 | WPDHPUPDATE1 ---
History and Physical Update Update Date/Time: 01/19/22 14:13 History and Physical has been reviewed, including an updated exam of the patient. There are NO changes in the patient's condition. Risks, benefits, and alternatives have been discussed and questions answered. Patient agrees to proceed with procedure.
--- NOTE | 2022-01-19 14:14 | WPDHPUPDATE1 ---
History and Physical Update Update Date/Time: 01/19/22 14:14 History and Physical has been reviewed, including an updated exam of the patient. There are NO changes in the patient's condition. Risks, benefits, and alternatives have been discussed and questions answered. Patient agrees to proceed with procedure.
[2022-01-19] MEDS: LACTATED RINGERS 1,000 ML 30 ML IV CONT ×2 (14:18→16:59)
--- NOTE | 2022-01-19 14:24 | PC.NURSE ---
On 01/19/22, the student, Rigoberto Johnson, provided care and completed [facility] documentation on this patient. I have reviewed the student's documentation and agree with the findings.
[2022-01-19] MEDS: ceFAZolin 2 GM/D5W 50 ML 2 GM/50 ML BAG IVPB (14:40)
--- NOTE | 2022-01-19 15:51 | W.PM.PROC2 ---
Procedure Note - Detailed Date of Procedure 01/19/22 Pre-op Diagnosis Acute cholecystitis Post-op Diagnosis Same Procedure Performed Laparoscopic cholecystectomy Surgeon Fidel Rodriguez, DO Anesthesia General and Local (0.5% bupivacaine) Indications This is a 61-year-old man who presented to the emergency department 2 days ago with right upper quadrant abdominal pain. His pain started just after midnight that night and continued throughout the morning. He was noted to have a slight elevated white blood count and CT showed gallbladder wall thickening consistent with acute cholecystitis. He was admitted for further workup and treatment. He was on Eliquis and this was held. Gallbladder ultrasound showed gallbladder sludge and gallbladder wall thickening. He continued to have abdominal pain. Discussions were made with the patient about treatment options and decision was made to proceed with laparoscopic cholecystectomy, possible open. Findings Laparoscopic cholecystectomy was performed. Upon entering the abdomen, there was an adhesive band going up to the midline abdominal wall. This was a very thin band and appeared to be a risk factor for future obstruction, therefore this adhesive band was taken down. The patient also had a few adhesions up to the gallbladder and liver bed. These came down easily with blunt dissection. The gallbladder appeared to be chronically thickened. No gallstones were identified but there was some very thick bile within the gallbladder. The cystic duct appeared normal in size. The gallbladder was removed and sent to the lab for pathology. Description of Procedure Procedure as well as risks, benefits, and alternatives were discussed with patient. Written consent was obtained and placed in chart prior to procedure. The patient was brought back to surgical suite. Patient was placed in supine position on operating table. Time-out was done to confirm patient and procedure. Patient was then intubated by the anesthesia department. Abdomen was prepped and draped in sterile fashion using chlorhexidine prep. 0.5% bupivacaine with epinephrine was infiltrated at each site of incision. An 11 millimeter vertical incision was made at the inferior portion of the umbilicus using a 15 blade scalpel. Blunt dissection was carried down to the linea alba. The linea alba was then incised using a 15 blade scalpel. The peritoneum was then bluntly entered. An 11 millimeter trocar was inserted and carbon dioxide insufflation was used to create a pneumoperitoneum. The camera was inserted and the abdomen was inspected. The patient was placed in reverse Trendelenberg position and rotated slightly to the left. A 5 millimeter incision was made in the epigastric region, and a 5 millimeter trocar was inserted under direct visualization. Two 5 millimeter incisions were made in the right upper quadrant, and two 5 millimeter trocars were inserted under direct visualization. The gallbladder was identified and grasped at the fundus and retracted superiorly. It was then grasped at the infundibulum retracted laterally. Careful dissection around the neck of the gallbladder was performed using blunt dissection with a [place] grasper and hook electrocautery. The cystic duct was identified, and a window was created behind it. The cystic artery was also identified and a window was created behind it. The critical view of safety was identified, visualizing the cystic duct running directly into the neck of the gallbladder, and the cystic artery running directly into the wall of the gallbladder. A 5 millimeter clip dye and chemical coordinator was then used to place 2 clips proximally and 1 clip distally on both the cystic duct and cystic artery. They were then both transected using endoscopic scissors. Once safely away from the antwan hepatitis, the gallbladder was dissected free from the liver bed using hook electrocautery. Hemostasis was achieved along the way. The gallbladder wa
[2022-01-19] MEDS: ONDANSETRON INJ 4 MG/2 ML VIAL IV PUSH (16:02)
[2022-01-19] MEDS: fentaNYL CITRATE INJ (*CRX) 100 MCG/2 ML VIAL 25 MCG IV PUSH ×4 (16:02→16:11)
[2022-01-19] MEDS: HYDROmorphone HCL INJ (*CRX) 1 MG/ML SYR 0.5 MG IV PUSH ×4 (16:20→17:00)
--- NOTE | 2022-01-19 18:13 | PC.NURSE ---
Per Dr. Malave, this nurse was asked to do a 6 minute walk with the patient and monitor oxygen requirements if any. Patient found on room air with oxygen saturations at 86%. Oxygen placed at 2 LPM. Increased to 92%. Provider made aware
[2022-01-19] MEDS: LACTATED RINGERS 1,000 ML 100 ML IV CONT (18:55)
[2022-01-19] MEDS: traZODone HCL 50 MG TABLET 100 MG PO (21:25)
[2022-01-19] MEDS: KETOROLAC 30 MG/ML VIAL (*BKC) IV PUSH (22:28)
[2022-01-20 03:30] VITALS: BP 146/85; PULSE 80; RESP 16; TEMP 36.6; O2SAT 90
[2022-01-20] MEDS: KETOROLAC 30 MG/ML VIAL (*BKC) IV PUSH (05:03)
[2022-01-20] MEDS: HYDROCORTISONE SODIUM SUCCINATE 100 MG/2 ML VIAL 50 MG IV PUSH (05:06)
[2022-01-20] MEDS: PANTOPRAZOLE SODIUM IV 40 MG VIAL IV PUSH (05:40)
[2022-01-20] MEDS: LEVOTHYROXINE SODIUM 150 MCG TABLET PO (05:41)
[2022-01-20] MEDS: PANTOPRAZOLE 40 MG TABLET PO (08:30)
[2022-01-20] MEDS: cefTRIAXone 2 GM in SODIUM CHLORIDE 0.9% IV 100 ML 200 ML IVPB (08:30)
[2022-01-20] MEDS: FLUoxetine HCL 20 MG CAPSULE 60 MG PO (08:30)
[2022-01-20] MEDS: buPROPion HCL SR (12 HR) 150 MG TAB PO (08:30)
[2022-01-20] MEDS: polyethylene glycoL 3350 17 GM POWD.PACK PO (08:31)
[2022-01-20] MEDS: ENOXAPARIN 40 MG/0.4 ML SYRINGE SUB-Q (08:31)
--- NOTE | 2022-01-20 11:50 | PM.PNGS ---
Progress Note: A&P Assessment and Plan (1) Acute cholecystitis: Code(s): K81.0 - Acute cholecystitis Status: Acute Assessment and Plan: Doing well on POD#1. OK to discharge today from surgical standpoint. Discharge instructions discussed with patient. Hold Cabozantinib until seen by Oncologist next week. OK to resume Eliquis tomorrow. Follow up in 2 weeks. Subjective Subjective Date/Time Seen: 01/20/22 11:50 Interval history: Doing well today. Pain controlled. Tolerating low fat diet. Exam GI: Inspection: incision (intact with glue) GI Palp: Yes Soft to palpation, Yes Tenderness to palpation present (GI) (incisional) and No Guarding due to palpation present (GI) Objective Data Vital Signs Vital Signs: Vital Signs - 24 hr 01/19/22 13:53 01/19/22 14:00 01/19/22 15:50 Temperature 36.7 C 36.4 C L 36.1 C L Pulse Rate 90 81 71 Respiratory Rate 16 20 22 H Blood Pressure 157/86 H 133/74 147/83 H Pulse Oximetry 98 94 95 01/19/22 16:05 01/19/22 16:20 01/19/22 16:35 Temperature Pulse Rate 73 82 86 Respiratory Rate 18 18 19 Blood Pressure 152/89 H 157/91 H 152/91 H Pulse Oximetry 97 96 96 01/19/22 16:50 01/19/22 17:05 01/19/22 17:20 Temperature Pulse Rate 88 89 88 Respiratory Rate 20 18 20 Blood Pressure 150/96 H 146/82 H 144/79 H Pulse Oximetry 95 95 95 01/19/22 17:35 01/19/22 18:11 01/19/22 18:12 Temperature Pulse Rate 85 Respiratory Rate 20 Blood Pressure 147/80 H Pulse Oximetry 94 86 L 92 01/19/22 18:30 01/19/22 19:30 01/19/22 23:30 Temperature 37.3 C 36.9 C 36.5 C Pulse Rate 85 88 84 Respiratory Rate 20 16 16 Blood Pressure 146/90 H 153/89 H 125/69 Pulse Oximetry 92 92 90 01/20/22 03:30 Temperature 36.6 C Pulse Rate 80 Respiratory Rate 16 Blood Pressure 146/85 H Pulse Oximetry 90 Intake/Output Intake/Output: Intake & Output 01/17/22 01/18/22 01/19/22 01/20/22 23:59 23:59 23:59 23:59 Intake Total 2336 2660 1300 3330 Output Total 1276 8260 1999 Balance 8106 585 -499 1330 Meds/Results Medications: Active Medications Generic Name Dose Route Start Last Admin Trade Name Freq PRN Reason Stop Dose Admin Acetaminophen 650 mg 01/17/22 21:01 01/18/22 12:13 Acetaminophen 325 Mg Tablet PO 650 mg Q6H PRN Administration Mild Pain (1-3) or Fever Bupropion HCl 150 mg 01/18/22 09:00 01/20/22 08:30 Bupropion Hcl Sr (12 Hr) 150 Mg Tab PO 150 mg Q12HR TRENT Administration Enoxaparin Sodium 40 mg 01/20/22 09:00 01/20/22 08:31 Enoxaparin 40 Mg/0.4 Ml Syringe SUB-Q 40 mg DAILY TRENT Administration Fluoxetine HCl 60 mg 01/18/22 09:00 01/20/22 08:30 Fluoxetine Hcl 20 Mg Capsule PO 60 mg DAILY TRENT Administration Hydrocortisone 15 mg 01/18/22 09:00 01/18/22 10:20 Hydrocortisone 5 Mg Tablet PO 02/18/22 08:59 Not Given DAILY TRENT Hydromorphone HCl 1 mg 01/17/22 20:59 01/19/22 18:46 Hydromorphone Hcl Inj (*Crx) 1 Mg/Ml Syr IV PUSH 1 mg Q2HR PRN Administration Pain Rated 7-10 Ceftriaxone Sodium 2 gm/ 100 mls @ 200 mls/hr 01/18/22 10:05 01/20/22 09:00 Sodium Chloride IVPB Infused DAILY TRENT Infusion Levothyroxine Sodium 150 mcg 01/18/22 06:30 01/20/22 05:41 Levothyroxine Sodium 150 Mcg Tablet PO 150 mcg DAILY@0630 TRENT Administration Morphine Sulfate 30 mg 01/18/22 09:59 01/19/22 05:21 Morphine Sulfate (*Crx) 15 Mg Tab Ir PO 30 mg Q8H PRN Administration MODERATE PAIN Ondansetron HCl 4 mg 01/17/22 11:12 Ondansetron Inj 4 Mg/2 Ml Vial IV PUSH Q4H PRN Nausea Oxycodone HCl 10 mg 01/20/22 11:46 Oxycodone Hcl (*Crx) 5 Mg Tab Ir PO Q4H PRN Pain Rated 5 or Less Pantoprazole Sodium 40 mg 01/18/22 09:00 01/20/22 08:30 Pantoprazole 40 Mg Tablet PO 40 mg QAM TRENT Administration Polyethylene Glycol 17 gm 01/18/22 09:00 01/20/22 08:31 Polyethylene Glycol 3350 17 Gm Powd.Pack PO 17 gm DAILY TRENT Adminis
--- NOTE | 2022-01-20 11:54 | PM.DS ---
DS: Admitting Diagnosis Discharge Date 01/20/2022 Admitting Diagnosis Abdominal pain DS: Discharge Diagnosis Discharge Diagnosis (1) Abdominal pain, acute, right upper quadrant: Code(s): R10.11 - Right upper quadrant pain Status: Acute Assessment and Plan: Probably related to acute calculous cholecystitis CT of abdomen and pelvis and ultrasound right upper quadrant have been performed. General surgery has been consult and appreciate further recommendations. Treated IV hydration started IV antibiotics cholecystectomy was done on 01/19/2022 tolerated well. Patient is immunocompromised with chemotherapy and steroid patient also at risk of adrenal crisis treated with stress dose steroid patient will be discharged on home dose of steroid pain medication no plan for antibiotic on discharge (2) Hypokalemia: Code(s): E87.6 - Hypokalemia Status: Acute Assessment and Plan: Replaced. Repeat CMP in 1 week (3) Hypertension: Code(s): I10 - Essential (primary) hypertension Status: Acute Assessment and Plan: Monitor continue current treatment resume home medication (4) Renal cell carcinoma: Code(s): C64.9 - Malignant neoplasm of unspecified kidney, except renal pelvis Status: Acute Assessment and Plan: Patient states he does continue to receive monthly chemo at the [facility]. Patient can follow as outpatient. 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 Patient does have an IVC filter in place also. Discussed with surgery resume oral anticoagulation in a.m.. (6) Adrenal insufficiency: Code(s): E27.40 - Unspecified adrenocortical insufficiency Status: Acute Assessment and Plan: No evidence of adrenal crisis patient to resume his oral steroid follow-up with PCP DS: Summary Hospital Course Hospital Course: 61 years old male with past medical history of renal cell carcinoma status post nephrectomy and chemotherapy adrenal is insufficiency on oral steroid DVT on Eliquis presented to the hospital with abdominal pain patient was found to have acute calculous cholecystitis surgery was consulted cholecystectomy was done on 01/19/2022 patient received stress dose steroid before surgery as patient has been on chronic steroid for adrenal insufficiency patient tolerated procedure well patient to follow-up with his surgeon and oncologist in 1 week as outpatient Time Spent with Patient Time attestation: Total time spent providing and/or coordinating discharge services: Exam Narrative: Alert Chest no wheeze crackles Abdomen nontender nondistended CVS S1 + S2 Lower extremity edema DS: Data Data Completed and Pending Pending studies at discharge: Pending at discharge 01/19/22 15:24 Surgical [PTH] Routine Labs on day of discharge: Preliminary micro results at discharge 01/18/22 10:27 Blood Culture - Preliminary Blood 01/18/22 10:27 Blood Culture - Preliminary Blood Discharge Plan Discharge Attending physician on discharge: Jean Paul Smith M.A. Consulting providers: Fidel Turpin Discharging Clinician: Jean Paul Smith M.A. Patient Disposition: Home, Self-Care Activity: other - see discharge instructions Diet: low fat Wound Care Instructions: other - see discharge instructions Discharge Instructions: DISCHARGE INSTRUCTION SHEET FOR HERNIA, GALLBLADDER AND APPENDIX SURGERIES DR. TURPIN PATIENT TO TAKE HOME 1. May shower, no soaking in bath x 2weeks. 2. Call office for: Wound increasingly painful or bleeding Vomiting Fever of
== END 2022-01-20 13:15 | disposition home or self-care (01) | DRG 418 ==
LOC: ANHED 11:17 → ANH3MEDSUR 12:00
PROVIDERS: Nurse Practitioner Adult Health; Surgery; Admitting Provider Family Medicine; Emergency Provider Emergency Medicine; Visit Provider Internal Medicine
PROC: 0FT44ZZ Resection of Gallbladder, Percutaneous Endoscopic Approach (ICD-10-PCS; CPT 47562; principal; 2022-01-19 15:30)
DX: K81.0 Acute cholecystitis (principal); C64.9 Malignant neoplasm of unspecified kidney, except renal pelvis; E27.40 Unspecified adrenocortical insufficiency; C79.51 Secondary malignant neoplasm of bone; E87.6 Hypokalemia; I10 Essential (primary) hypertension; E03.9 Hypothyroidism, unspecified; Z79.01 Long term (current) use of anticoagulants; Z87.891 Personal history of nicotine dependence; Z83.3 Family history of diabetes mellitus; Z84.89 Family history of other specified conditions; Z79.899 Other long term (current) drug therapy; Z86.718 Personal history of other venous thrombosis and embolism
CPT/HCPCS: 36415; 74177; 76705; 80053; 83690; 83735; 85025; 86850; 86900; 86901; 87040; 88304; 96361; 96365; 96366; 96367; 96375; 96376; 99285; A9270; C9113; G0378; J0690; J0696; J1100; J1170; J1650; J1720; J1885; J2250; J2270; J2405; J2704; J2710; J3010; J3480; J7030; J7120; Q9967

== ENCOUNTER 2022-08-10 06:37 | Inpatient (IN) | payer OTHER, BC, SELFPAY ==
[2022-08-10] VITALS (9 sets, daily range): BP systolic 134–167; BP diastolic 73–92; PULSE 70–86; RESP 14–20; TEMP 36.4–37.2; O2SAT 94–97; BMI 26.4
--- NOTE | ~2022-08-10 | MR_ITS ---
EXAMINATION: MR MRCP wo/w con/w 3D wo ind DATE: 08/10/2022 12:31 INDICATION: Pancreatitis. TECHNIQUE: Magnetic resonance imaging (MRI) of the abdomen was performed without and with 20 mL Multi Keyanna intravenous contrast. Sequences included coronal T2-weighted FS FSE, coronal T2-weighted FSE, a xial T1-weighted LAVA, coronal FS FIESTA, axial dual-echo T1-weighted SPGR, coronal lava-FLEX, sagitt al T2-weighted FSE, axial T2-weighted FSE, and axial DWI. Thick-slab T2-weighted FSE images were obta ined for magnetic resonance cholangiopancreatography (MRCP). Maximum intensity projection 3-D reconst ructions of the volumetric data were created by the technologist. Postcontrast sequences included cor onal LAVA-flex and time course of axial T1-weighted LAVA. COMPARISON: CT abdomen and pelvis 08/10/2022 FINDINGS: ABDOMEN MRI: There is a 6 mm cyst in the liver. The gallbladder is absent. The spleen is absent. Ther e is mild fat stranding adjacent to the pancreas, consistent with acute interstitial pancreatitis. Th e adrenal glands are normal. There are changes of right nephrectomy. There is an 11 mm cyst in left k idney. There are no dilated loops of bowel. There are no pathologically enlarged lymph nodes. There i s no free intraperitoneal fluid. ABDOMEN MRCP: The common duct is normal and measures 6 mm. There is a 4 mm stone in the common duct. IMPRESSION: 1. 4 mm stone in the common duct. 2. Acute interstitial pancreatitis. Reviewed, dictated and finalized at location A. HYSICAL PROSPECTOR
--- NOTE | ~2022-08-10 | XR_ITS ---
EXAMINATION: XR ERCP DATE: 08/12/2022 9:15 ACUTE CARE NURSE PRACTITIONER INDICATION: STONES . TECHNIQUE: 3 fluoroscopic images of the right upper quadrant were obtained during ERCP performed by cyril pittman surgeon. I was not present in the operating room. Fluoroscopy exposure time was 88.5 seconds. Air Kerma 13.62 mGy. DAP [id number] mGym2. COMPARISON: MRI MRCP and CT abdomen and pelvis 08/10/2022 FINDINGS: Wire access, cannulation, and contrast injection into a normal-appearing common bile duct. Possible t iny filling defect in the distal duct. IMPRESSION: Fluoroscopic documentation of ERCP. Please refer to the operative note for complete procedural detail s . Reviewed, dictated and finalized at location K. E CARE NURSE PRACTITIONER IMPRESSION: Fluoroscopic documentation of ERCP. Please refer to the operative note for comp lete procedural details .
--- NOTE | ~2022-08-10 | CT_ITS ---
EXAMINATION: CT abdomen pelvis w con DATE: 08/10/2022 07:46 INDICATION: Pancreatitis. TECHNIQUE: Computed tomography (CT) of the abdomen and pelvis was performed with 100 mL Omnipaque 350 intravenous contrast. Automated exposure control and iterative reconstruction technique were employe d. The dose-length product was 775.95 mGy-cm. COMPARISON: CT abdomen and pelvis 01/17/2022, 04/28/2021 FINDINGS: The visualized portions of the lung bases demonstrate chronic septal thickening. No pleural effusion. The heart size is normal. There are coronary artery calcifications. No pericardial effusio n. There is mild intrahepatic biliary duct dilatation, likely secondary to cholecystectomy. There is an 8 mm cyst in the liver. The spleen is absent. The pancreas and adrenal glands are normal. There ar e changes of right nephrectomy. There is a 12 mm cyst in left kidney. There is a 2 mm stone in left k idney. The prostate is moderately enlarged. There are no dilated loops of bowel. The appendix is not visualized. There are no pathologically enlarged lymph nodes. There is no free intraperitoneal fluid. There is a right inguinal hernia containing fat. There is mild chronic anterior wedging of T11-L1 ve rtebral bodies. There is mild thoracolumbar spondylosis. IMPRESSION: 1. Normal pancreas. Reviewed, dictated and finalized at location A. TIONAL DIRECTOR IMPRESSION: 1. Normal pancreas.
[2022-08-10 07:01] LABS: Basophils Absolute Auto 0.1 K/mm3 (0.0-0.1); Basophils Percent Auto 0.4 % (0.2-1.2); Eosinophils Absolute Auto 0.3 K/mm3 (0-0.3); Eosinophils Percent Auto 2.6 % (0-4.4); Hematocrit 43.5 % (42.0-52.0); Hemoglobin 14.4 g/dL (14.0-18.0); Immature Granulocyte Absolute 0.02 K/mm3 (0.00-0.031); Immature Granulocyte Percent A 0.2 % (0-0.5); Lymphocytes Absolute Auto 5.75 K/mm3 (0.9-3.2); Lymphocytes Percent Auto 45.1 % (18.3-44.2); Mean Corpuscular HGB Conc 33.1 g/dl (32-36); Mean Corpuscular Hemoglobin 31.6 pg (26-34); Mean Corpuscular Volume 95.6 fl (80-100); Mean Platelet Volume 9.3 fl (7.4-10.4); Monocytes Absolute Auto 1.2 K/mm3 (0.1-0.6); Monocytes Percent Auto 9.2 % (2.6-8.5); Neutrophils Absolute Auto 5.4 K/mm3 (1.3-6.7); Neutrophils Percent Auto 42.5 % (45.5-73.1); Platelet Count Result 652 k/mm3 (150-375); Red Blood Count 4.55 M/mm3 (4.6-6.20); Red Cell Distribution Width 13.7 % (11.5-14.5); White Blood Count 12.8 K/mm3 (4.5-10.0)
[2022-08-10 07:18] LABS: Alanine Aminotransferase 176 U/L (6-50); Albumin Level 4.1 g/dL (3.5-5.1); Alkaline Phosphatase 141 U/L (38-126); Anion Gap 13 mmol/L (8-16); Aspartate Amino Transferase 302 U/L (17-59); Bilirubin,Total 1.1 mg/dL (0.2-1.3); Blood Urea Nitrogen 19 mg/dL (9-20); Calcium 8.9 mg/dL (8.4-10.2); Carbon Dioxide 27 mmol/L (22-30); Chloride 102 mmol/L (98-107); Estimated Glomerular Filt Rate > 60; Glucose 100 mg/dL (65-110); Potassium 3.3 mmol/L (3.4-5.0); Sodium 142 mmol/L (137-145)
[2022-08-10 07:29] LABS: Lipase 3472 U/L (23-300)
--- NOTE | 2022-08-10 07:34 | PC.NURSE ---
Pt reports he needs to have a BM, assisted into w/c and taken to restroom, pt has pain med ordered for when back to room and made aware this RN will admin after restroom.
[2022-08-10] MEDS: MORPHINE SULFATE (*CRX) 4 MG/ML INJ IV PUSH ×3 (07:39→21:00)
--- NOTE | 2022-08-10 07:39 | PC.NURSE ---
Pt unable to have BM and unable to provide urine sample. Requesting more time to try, declines straight cath. Pt given ordered pain medication and taken to CT scan via stretcher at this time.
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
[2022-08-10 09:12] LABS: Add Urine Microscopic? YES; Appearance Urine Clear (Clear); Bilirubin Urine Negative (Negative); Blood Urine Negative (Negative); Color Urine Yellow (Yellow); Glucose Urine UA Negative (Negative); Ketones Urine Negative (Negative); Leukocyte Esterase Ur Negative LEU/UL (Negative); Nitrate Urine Negative (Negative); Protein Urine Negative (Negative); Specific Grav Ur 1.015 (1.001-1.035)
[2022-08-10 09:23] LABS: Bacteria Urine Trace /hpf; RBC Urine 0-2 /hpf (0-2); WBC Urine 0-3 /hpf
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
[2022-08-10] MEDS: SODIUM CHLORIDE 0.9% IV 1,000 ML 125 ML IV CONT ×2 (15:31→23:43)
[2022-08-10] MEDS: TAMSULOSIN HCL 0.4 MG CAPSULE 0.8 MG PO (20:56)
[2022-08-11] MEDS: MORPHINE SULFATE (*CRX) 4 MG/ML INJ IV PUSH ×3 (02:19→12:45)
[2022-08-11 04:00] VITALS: BP 118/82; PULSE 77; RESP 20; TEMP 37.1; O2SAT 97
[2022-08-11 06:08] LABS: INR 1.1; Prothrombin Time 14.1 Seconds (11.1-14.7)
[2022-08-11] MEDS: LEVOTHYROXINE SODIUM 150 MCG TABLET PO (06:22)
[2022-08-11] MEDS: SODIUM CHLORIDE 0.9% IV 1,000 ML 125 ML IV CONT ×3 (06:26→23:42)
[2022-08-11 08:00] VITALS: BP 148/91; PULSE 75; RESP 14; TEMP 37; O2SAT 96
[2022-08-11 08:03] LABS: Basophils Absolute Auto 0.1 K/mm3 (0.0-0.1); Basophils Percent Auto 0.7 % (0.2-1.2); Eosinophils Absolute Auto 0.4 K/mm3 (0-0.3); Eosinophils Percent Auto 4.8 % (0-4.4); Hematocrit 40.2 % (42.0-52.0); Hemoglobin 13.4 g/dL (14.0-18.0); Immature Granulocyte Absolute 0.02 K/mm3 (0.00-0.031); Immature Granulocyte Percent A 0.2 % (0-0.5); Lymphocytes Absolute Auto 3.95 K/mm3 (0.9-3.2); Lymphocytes Percent Auto 42.8 % (18.3-44.2); Mean Corpuscular HGB Conc 33.3 g/dl (32-36); Mean Corpuscular Hemoglobin 31.8 pg (26-34); Mean Corpuscular Volume 95.5 fl (80-100); Mean Platelet Volume 9.6 fl (7.4-10.4); Monocytes Percent Auto 10.9 % (2.6-8.5); Neutrophils Absolute Auto 3.8 K/mm3 (1.3-6.7); Neutrophils Percent Auto 40.6 % (45.5-73.1); Platelet Count Result 606 k/mm3 (150-375); Red Blood Count 4.21 M/mm3 (4.6-6.20); Red Cell Distribution Width 14.3 % (11.5-14.5); White Blood Count 9.2 K/mm3 (4.5-10.0)
[2022-08-11 08:15] LABS: Alanine Aminotransferase 305 U/L (6-50); Albumin Level 3.4 g/dL (3.5-5.1); Alkaline Phosphatase 147 U/L (38-126); Anion Gap 8 mmol/L (8-16); Aspartate Amino Transferase 280 U/L (17-59); Bilirubin,Total 1.5 mg/dL (0.2-1.3); Blood Urea Nitrogen 10 mg/dL (9-20); Calcium 8.5 mg/dL (8.4-10.2); Carbon Dioxide 27 mmol/L (22-30); Chloride 102 mmol/L (98-107); Estimated CRCL calculation 89 ml/min; Estimated Glomerular Filt Rate > 60; Glucose 88 mg/dL (65-110); Lipase 593 U/L (23-300); Magnesium 1.8 mg/dL (1.6-2.3); Potassium 3.9 mmol/L (3.4-5.0); Sodium 137 mmol/L (137-145)
[2022-08-11] MEDS: amLODIPine BESYLATE 5 MG TABLET 10 MG PO (08:27)
[2022-08-11] MEDS: FLUoxetine HCL 20 MG CAPSULE 60 MG PO (08:27)
[2022-08-11] MEDS: HYDROCORTISONE 5 MG TABLET 15 MG PO (08:28)
[2022-08-11] MEDS: PANTOPRAZOLE 40 MG TABLET PO (08:28)
--- NOTE | 2022-08-11 08:30 | P.PNIM_ITS ---
Progress Note: A&P Assessment and Plan (1) Acute pancreatitis: Code(s): K85.90 - Acute pancreatitis without necrosis or infection, unspecified Status: Acute Assessment and Plan: * patient presented with abdominal pain * lipase elevated at 3472 upon admission, currently 593 * clear liquid diet * GI on board * abdominal CT does not indicate any acute pancreatitis or bile duct obstruction * MRCP does show 4 mm stone in the bile duct * ERCP scheduled for tomorrow * pain medications * trend labs (2) Transaminitis: Code(s): R74.01 - Elevation of levels of liver transaminase levels Status: Acute Assessment and Plan: * liver enzymes currently 280/305, alk phos 147, total bili 1.5 * related to bile duct occlusion * MRCP did show bile stone * ERCP ordered for tomorrow * trend labs (3) Hypothyroidism: Code(s): E03.9 - Hypothyroidism, unspecified Status: Acute Assessment and Plan: * continue home levothyroxine * TSH 0.021, T4 1.67, T3 1.20 (4) Hypertension: Code(s): I10 - Essential (primary) hypertension Status: Acute Assessment and Plan: * current blood pressure 148/91 * continue home amlodipine * trend blood pressure * adjust therapy as indicated (5) Adrenal insufficiency: Code(s): E27.40 - Unspecified adrenocortical insufficiency Status: Acute Assessment and Plan: * continue hydrocortisone (6) Metastatic renal cell carcinoma to bone: Code(s): C79.51 - Secondary malignant neoplasm of bone; C64.9 - Malignant neoplasm of unspecified kidney, except renal pelvis Status: Acute Assessment and Plan: * follows [facility] Estevez * continue home chemo pill, does currently get infusions * stated he was in remission * stable at this time * Ask patient to bring in his chemo medications to be able to continue here (7) Chronic anticoagulation: Code(s): Z79.01 - watermelon harvesting supervisor (current) use of anticoagulants Status: Acute Assessment and Plan: * history of DVT * Eliquis on hold due to procedure * SCDs for DVT prophylaxis (8) Chronic pain: Code(s): G89.29 - Other chronic pain Status: Acute Assessment and Plan: * patient takes oxycodone for pain and morphine * currently on IV morphine * trend pain score * adjust therapy as indicated Time Spent With Patient Time with patient: Greater than 35 minutes Subjective Date/time seen: 08/11/22829 Interval history: 08/11/22829 Patient was sitting in the chair. Patient denies any nausea, vomiting, diarrhea or constipation. Patient stated that he had a bowel movement this morning. He also stated that his pain has been shifted from the epigastric area to the bilateral lower abdomen. He denied any chest pain, shortness a breath, nausea, vomiting, diarrhea, constipation, sweats, fevers, chills. Lipase is better at 573 however liver enzymes continue to rise. Patient is scheduled for the ERCP tomorrow 08/10/22? 1400 ?patient is 61-year-old male with past medical history of renal carcinoma, hypothyroidism, hypertension, DVT, chronic pain who presented to the ED with abdominal pain.? Patient stat
--- NOTE | 2022-08-11 08:30 | PM.IMPN ---
Progress Note: A&P Assessment and Plan (1) Acute pancreatitis: Code(s): K85.90 - Acute pancreatitis without necrosis or infection, unspecified Status: Acute Assessment and Plan: patient presented with abdominal pain lipase elevated at 3472 upon admission, currently 593 clear liquid diet GI on board abdominal CT does not indicate any acute pancreatitis or bile duct obstruction MRCP does show 4 mm stone in the bile duct ERCP scheduled for tomorrow pain medications trend labs (2) Transaminitis: Code(s): R74.01 - Elevation of levels of liver transaminase levels Status: Acute Assessment and Plan: liver enzymes currently 280/305, alk phos 147, total bili 1.5 related to bile duct occlusion MRCP did show bile stone ERCP ordered for tomorrow trend labs (3) Hypothyroidism: Code(s): E03.9 - Hypothyroidism, unspecified Status: Acute Assessment and Plan: continue home levothyroxine TSH 0.021, T4 1.67, T3 1.20 (4) Hypertension: Code(s): I10 - Essential (primary) hypertension Status: Acute Assessment and Plan: current blood pressure 148/91 continue home amlodipine trend blood pressure adjust therapy as indicated (5) Adrenal insufficiency: Code(s): E27.40 - Unspecified adrenocortical insufficiency Status: Acute Assessment and Plan: continue hydrocortisone (6) Metastatic renal cell carcinoma to bone: Code(s): C79.51 - Secondary malignant neoplasm of bone; C64.9 - Malignant neoplasm of unspecified kidney, except renal pelvis Status: Acute Assessment and Plan: follows with a [facility] oncologist Dr. Estevez continue home chemo pill, does currently get infusions stated he was in remission stable at this time Ask patient to bring in his chemo medications to be able to continue here (7) Chronic anticoagulation: Code(s): Z79.01 - medical collector (current) use of anticoagulants Status: Acute Assessment and Plan: history of DVT Eliquis on hold due to procedure SCDs for DVT prophylaxis (8) Chronic pain: Code(s): G89.29 - Other chronic pain Status: Acute Assessment and Plan: patient takes oxycodone for pain and morphine currently on IV morphine trend pain score adjust therapy as indicated Time Spent With Patient Time with patient: Greater than 35 minutes Subjective Date/time seen: 08/11/22829 Interval history: 11/24/22 0830 Patient was sitting in the chair. Patient denies any nausea, vomiting, diarrhea or constipation. Patient stated that he had a bowel movement this morning. He also stated that his pain has been shifted from the epigastric area to the bilateral lower abdomen. He denied any chest pain, shortness a breath, nausea, vomiting, diarrhea, constipation, sweats, fevers, chills. Lipase is better at 573 however liver enzymes continue to rise. Patient is scheduled for the ERCP tomorrow 08/10/22? 1400 ?patient is 61-year-old male with past medical history of renal carcinoma, hypothyroidism, hypertension, DVT, chronic pain who presented to the ED with abdominal pain.? Patient stated that it started at 2:30 a.m. and was at his belly button and went up to his ribcage.? Patient stated that he continued until he arrived to the ER.? Patient did not try anything at home for relief however did have 2 episodes of nausea vomiting that he stated was white and red however he also stated that he ate of big portion of red Jell-O.? He also stated that the pain did radiate to his back.? Currently his pain is a 3/10.? He did state that his last meal was rigatoni carbonara with bread.? His last bowel movement was yesterday morning.? He denies any chest pain, shortness a breath, weakness, fatigue, diarrhea, constipation, sweats
--- NOTE | 2022-08-11 10:14 | WPDGIPROGNO ---
Progress Note: A&P Assessment and Plan (1) Transaminitis: Code(s): R74.01 - Elevation of levels of liver transaminase levels Status: Acute Assessment and Plan: as noted above, he has elevation of his transaminases and alkaline phosphatase. This is suggestive of common bile duct obstruction, probably sludge at the ampulla 08/11/2022 LFTs are about the same. Bilirubin has increased to 1.6. (2) Acute pancreatitis: Code(s): K85.90 - Acute pancreatitis without necrosis or infection, unspecified Status: Acute Assessment and Plan: lipase elevation suggests occlusion at the level of the ampulla. MRCP will be ordered. If common bile duct calculi are suspected he would need ERCP. However he took his last dose of Eliquis last evening and therefore we would need to wait at another 36 hours prior to doing the ERCP and sphincterotomy. MRCP has been done and does reveal a distal common bile duct stone. He will be scheduled for ERCP on Monday morning. I have discussed the procedure were with him the technique etcetera. (3) Metastatic renal cell carcinoma to bone: Code(s): C79.51 - Secondary malignant neoplasm of bone; C64.9 - Malignant neoplasm of unspecified kidney, except renal pelvis Status: Acute Assessment and Plan: He states that he is said to be in remission. (4) Chronic anticoagulation: Code(s): Z79.01 - residential (current) use of anticoagulants Status: Acute Assessment and Plan: Because of deep vein thrombosis which is likely due to hypercoagulable state secondary to malignancy, he has been on Eliquis. This will be held for the time being. Subjective Date/time seen: 08/11/22 10:14 he is feeling fairly good. Did knows exacerbation of his epigastric pain, although now he is having discomfort in his pelvic area. It is a constant aching. No change in urinary issues. He is doing well with clear liquids. I explained that we do not want to give him solid food for fear of exacerbating his pancreatitis and choledocholithiasis. Exam Const: General: alert Orientation/consciousness: patient oriented x3 Resp: Auscultation: clear to auscultation bilaterally Cardio: Rhythm: regular rhythm GI: Inspection: normal to inspection GI Palp: Yes Soft to palpation, Yes Tenderness to palpation present (GI) ( epigastric area), No Guarding due to palpation present (GI) and Yes No hepatosplenomegaly present Auscultation: normal bowel sounds Neuro: General: patient oriented x3 Objective Data Vital Signs Vital Signs: Vital Signs - 24 hr 08/10/22 10:20 08/10/22 12:00 08/10/22 16:00 Temperature 36.6 C 37.1 C 37.1 C Pulse Rate 70 79 80 Respiratory Rate 16 16 16 Blood Pressure 147/87 H 134/73 134/83 Pulse Oximetry 96 95 97 Oxygen Delivery 08/10/22 20:00 08/10/22 19:50 08/10/22 23:43 Temperature 36.4 C 36.6 C Pulse Rate 82 82 76 Respiratory Rate 20 20 18 Blood Pressure 141/82 H 136/85 Pulse Oximetry 97 97 94 Oxygen Delivery Room Air 08/11/22 04:00 08/11/22 08:00 08/11/22 08:30 Temperature 37.1 C 37.0 C Pulse Rate 77 75 Respiratory Rate 20 14 Blood Pressure 118/82 148/91 H Pulse Oximetry 97 96 Oxygen Delivery Room Air Intake/Output Intake/Output: Intake & Output 08/08/22 08/09/22 08/10/22 08/11/22 23:59 23:59 23:59 23:59 Intake Total 1550 1150 Output Total 500 Balance 1550 650 Meds/Results Medications: Active Medications Generic Name Dose Route Start Last Admin Trade Name Freq PRN Reason Stop Dose Admin Amlodipine Besylate 10 mg 08/11/22 09:00 08/11/22 08:27 Amlodipine Besylate 5 Mg Tablet PO 10 mg DAILY TRENT Administration Fluoxetine HCl 60 mg 08/11/22 09:00 08/11/22 08:27 Fluoxetine Hcl 20 Mg Capsule PO 60 mg DAILY TRENT Administration Hydrocortisone 15 mg 08/11/22 09:00 08/11/22 08:28 Hydrocortisone 5 Mg Tablet PO 09/10/22 08:59 15 mg DAILY TRENT Administration Sod
[2022-08-11 12:00] VITALS: BP 133/80; PULSE 75; RESP 16; TEMP 37.1; O2SAT 96
[2022-08-11 12:36] LABS: Thyroid Stimulating Hormone Reflex 0.021 uIU/mL (0.465-4.68)
[2022-08-11 13:35] LABS: Free T4 Free Thyroxine Reflex 1.67 ng/dL (0.78-2.19)
[2022-08-11 16:00] VITALS: BP 140/83; PULSE 70; RESP 16; TEMP 36.7; O2SAT 96
[2022-08-11] MEDS: HYDROmorphone HCL INJ (*CRX) 1 MG/ML SYR IV PUSH ×2 (16:12→20:04)
[2022-08-11 20:00] VITALS: BP 130/81; PULSE 66; RESP 17; TEMP 36.8; O2SAT 95
[2022-08-11] MEDS: TAMSULOSIN HCL 0.4 MG CAPSULE 0.8 MG PO (20:20)
--- NOTE | 2022-08-11 21:02 | PHAR ---
RX [id number] IDENTIFIED TO CONTAIN: DRUG NAME: CABOMETYX INGREDIENTS: CABOZANTINIB MALATE -- 20 MG COLOR: YELLOW SHAPE: KAKE IMPRINT: 20 , XL FORM: ORAL TABLET
[2022-08-11] MEDS: oxyCODONE HCL (*CRX) 10 MG TAB SR 12HR 30 MG PO (21:33)
[2022-08-12] VITALS (12 sets, daily range): BP systolic 113–147; BP diastolic 69–93; PULSE 65–74; RESP 16–20; TEMP 36.3–37.3; O2SAT 95–99
[2022-08-12 06:03] LABS: Basophils Absolute Auto 0.1 K/mm3 (0.0-0.1); Basophils Percent Auto 0.9 % (0.2-1.2); Eosinophils Absolute Auto 0.6 K/mm3 (0-0.3); Eosinophils Percent Auto 7.5 % (0-4.4); Hematocrit 39.3 % (42.0-52.0); Hemoglobin 13.2 g/dL (14.0-18.0); Immature Granulocyte Absolute 0.02 K/mm3 (0.00-0.031); Immature Granulocyte Percent A 0.2 % (0-0.5); Lymphocytes Absolute Auto 3.61 K/mm3 (0.9-3.2); Lymphocytes Percent Auto 44.1 % (18.3-44.2); Mean Corpuscular HGB Conc 33.6 g/dl (32-36); Mean Corpuscular Hemoglobin 31.1 pg (26-34); Mean Corpuscular Volume 92.7 fl (80-100); Monocytes Absolute Auto 1.1 K/mm3 (0.1-0.6); Monocytes Percent Auto 13.2 % (2.6-8.5); Neutrophils Absolute Auto 2.8 K/mm3 (1.3-6.7); Neutrophils Percent Auto 34.1 % (45.5-73.1); Platelet Count Result 591 k/mm3 (150-375); Red Blood Count 4.24 M/mm3 (4.6-6.20); Red Cell Distribution Width 14.1 % (11.5-14.5); White Blood Count 8.2 K/mm3 (4.5-10.0)
[2022-08-12 06:14] LABS: Alanine Aminotransferase 207 U/L (6-50); Albumin Level 3.3 g/dL (3.5-5.1); Alkaline Phosphatase 109 U/L (38-126); Anion Gap 6 mmol/L (8-16); Aspartate Amino Transferase 125 U/L (17-59); Bilirubin,Total 0.6 mg/dL (0.2-1.3); Blood Urea Nitrogen 8 mg/dL (9-20); Calcium 8.6 mg/dL (8.4-10.2); Carbon Dioxide 27 mmol/L (22-30); Chloride 105 mmol/L (98-107); Estimated CRCL calculation 99 ml/min; Estimated Glomerular Filt Rate > 60; Glucose 85 mg/dL (65-110); Lipase 848 U/L (23-300); Magnesium 1.8 mg/dL (1.6-2.3); Sodium 138 mmol/L (137-145)
[2022-08-12] MEDS: LEVOTHYROXINE SODIUM 150 MCG TABLET PO (06:37)
[2022-08-12] MEDS: SODIUM CHLORIDE 0.9% IV 1,000 ML 125 ML IV CONT (06:39)
[2022-08-12] MEDS: LACTATED RINGERS 1,000 ML 150 ML IV CONT (08:13)
--- NOTE | 2022-08-12 08:26 | WPDANESEPPF ---
Anes - Initial Pre Proc Eval Procedure: Operation Date: 08/12/22 08:30 Proposed Procedures p Endoscopic Retro Cholangiopancreatogram - Lincoln Cervantes MD Date/Time: 08/12/22 08:26 Surgeon: Deepthi Simon PA-C Pre Op Diagnosis: pancreatitis Patient Data Age: 61 Gender: M Height: 1.88 m Weight: 93.6 kg Last Vital Signs Temp 37.3 C 08/12/22 08:06 Pulse 69 08/12/22 08:06 Resp 18 08/12/22 08:06 BP 145/92 H 08/12/22 08:06 Pulse Ox 97 08/12/22 08:06 O2 Del Method Room Air 08/12/22 08:06 Allergies Allergy/AdvReac Type Severity Reaction Status Date / Time No Known Allergies Allergy Mild Verified 08/10/22 07:00 Home Medications Medication Instructions Recorded Confirmed Type fluoxetine 60 mg tablet 60 mg PO DAILY 04/24/20 08/10/22 History oxycodone 10 mg tablet,crush 30 mg PO BID PRN Pain 05/21/20 08/10/22 History resistant,extended release 12 hr amlodipine 10 mg tablet 10 mg PO DAILY 04/28/21 08/10/22 History cabozantinib 20 mg tablet 20 mg PO QAM 04/28/21 08/10/22 History hydrocortisone 20 mg tablet 15 mg PO DAILY 04/28/21 08/10/22 History levothyroxine 150 mcg tablet 150 mcg PO DAILY 04/28/21 08/10/22 History pantoprazole 40 mg tablet,delayed 40 mg PO QAM 01/17/22 08/10/22 History release apixaban 5 mg tablet (Eliquis) 5 mg PO BID #0 tabs 01/20/22 08/10/22 Rx tamsulosin 0.4 mg capsule 0.8 mg PO HS 08/10/22 08/10/22 History Laboratory Tests 08/11/22 08/11/22 08/11/22 10:46 10:46 10:46 WBC RBC Hgb Hct MCV MCH MCHC RDW Plt Count MPV Immature Gran % (Auto) Neut % (Auto) Lymph % (Auto) Blount % (Auto) Eos % (Auto) Baso % (Auto) Lymph # (Auto) Blount # (Auto) Eos # (Auto) Baso # (Auto) Abs Immat Gran (auto) Absolute Neuts (auto) Absolute Nucleated RBC Nucleated RBC % Sodium Potassium Chloride Carbon Dioxide Anion Gap BUN Creatinine Estim Creat Clear Calc Estimated GFR Glucose Calcium Magnesium Total Bilirubin AST ALT Alkaline Phosphatase Total Protein Albumin Lipase TSH (Reflex) 0.021 uIU/mL L uIU/mL (0.465-4.68) Free T4 1.67 ng/dL ng/dL (0.78-2.19) Total T3 1.20 NG/ML NG/ML (0.97-1.69) 08/12/22 08/12/22 05:40 05:40 WBC 8.2 K/mm3 K/mm3 (4.5-10.0) RBC 4.24 M/mm3 L M/mm3 (4.6-6.20) Hgb 13.2 g/dL L g/dL (14.0-18.0) Hct 39.3 % L % (42.0-52.0) MCV 92.7 fl fl (80-100) MCH 31.1 pg pg (26-34) MCHC 33.6 g/dl g/dl (32-36) RDW 14.1 % % (11.5-14.5) Plt Count 591 k/mm3 H k/mm3 (150-375) MPV 9.0 fl fl (7.4-10.4) Immature Gran % (Auto) 0.2 % % (0-0.5) Neut % (Auto) 34.1 % L % (45.5-73.1) Lymph % (Auto) 44.1 % % (18.3-44.2) Blount % (Auto) 13.2 % H % (2.6-8.5) Eos % (Auto) 7.5 % H % (0-4.4) Baso % (Auto) 0.9 % % (0.2-1.2) Lymph # (Auto) 3.61 K/mm3 H K/mm3 (0.9-3.2) Blount # (Auto) 1.1 K/mm3 H K/mm3 (0.1-0.6) Eos # (Auto) 0.6 K/mm3 H K/mm3 (0-0.3) Baso # (Auto) 0.1 K/mm3 K/mm3 (0.0-0.1) Abs Immat Gran (auto) 0.02 K/mm3 K/mm3 (0.00-0.031) Absolute Neuts (auto) 2.8 K/mm3 K/mm3 (1.3-6.7) Absolute Nucleated RBC 0.0 K/mm3 K/mm3 (0.0-0.012) Nucleated RBC % 0.0 % % (0.0-0.2) Sodium 138 mmol/L mmol/L (137-145) Potassium 4.0 mmol/L mmol/L (3.4-5.0) Chloride 105 mmol/L mmol/L (98-107) Carbon Dioxi
[2022-08-12] MEDS: INDOMETHACIN 50 MG SUPP.RECT RECTAL (09:14)
[2022-08-12] MEDS: FLUoxetine HCL 20 MG CAPSULE 60 MG PO (13:29)
[2022-08-12] MEDS: amLODIPine BESYLATE 5 MG TABLET 10 MG PO (13:29)
[2022-08-12] MEDS: HYDROCORTISONE 5 MG TABLET 15 MG PO (13:30)
[2022-08-12] MEDS: PANTOPRAZOLE 40 MG TABLET PO (13:30)
[2022-08-12] MEDS: oxyCODONE HCL (*CRX) 10 MG TAB SR 12HR 30 MG PO ×2 (13:30→21:00)
--- NOTE | 2022-08-12 15:13 | P.PNIM_ITS ---
Progress Note: A&P Assessment and Plan (1) Choledocholithiasis: Code(s): K80.50 - Calculus of bile duct without cholangitis or cholecystitis without obstruction Status: Acute Assessment and Plan: MRCP revealed 4 mm stone in the common bile duct * Underwent ERCP today which revealed papillary stenosis and choledocholithiasis. * Sphincterotomy was performed with extraction of sludge * Advance diet as tolerated * Appreciate GI consultation (2) Acute pancreatitis: Code(s): K85.90 - Acute pancreatitis without necrosis or infection, unspecified Status: Acute Assessment and Plan: * patient presented with abdominal pain * lipase elevated at 3472 upon admission, currently 848 * Advance to full liquid diet * Continue to trend lipase * Supportive care. Analgesics and antiemetics available as needed (3) Transaminitis: Code(s): R74.01 - Elevation of levels of liver transaminase levels Status: Acute Assessment and Plan: * Secondary to above * Total bili normalized today. * AST and ALT trending down * Continue to monitor (4) Hypothyroidism: Code(s): E03.9 - Hypothyroidism, unspecified Status: Acute Assessment and Plan: * continue home levothyroxine * TSH low at 0.021 with normal T4 1.67 and T3 1.20 * Will need repeat TSH with reflex as an outpatient (5) Hypertension: Code(s): I10 - Essential (primary) hypertension Status: Acute Assessment and Plan: * Blood pressures have been remaining stable * continue home amlodipine * trend blood pressure * adjust therapy as indicated (6) Adrenal insufficiency: Code(s): E27.40 - Unspecified adrenocortical insufficiency Status: Acute Assessment and Plan: * continue hydrocortisone 15 mg daily * No need for stress dosing of steroids at this time. Monitor BP trends (7) Metastatic renal cell carcinoma to bone: Code(s): C79.51 - Secondary malignant neoplasm of bone; C64.9 - Malignant neoplasm of unspecified kidney, except renal pelvis Status: Acute Assessment and Plan: * follows [facility] Estevez * continue home chemo pill, does currently get infusions * stated he was in remission * stable at this time * If home oral chemotherapy can be brought in, will resume during admission (8) Chronic anticoagulation: Code(s): Z79.01 - detention (current) use of anticoagulants Status: Acute Assessment and Plan: * Maintained on Eliquis due to history of DVT * Eliquis held for ERCP * resume when clinically appropriate (9) Chronic pain: Code(s): G89.29 - Other chronic pain Status: Acute Assessment and Plan: * Chronic neck and back pain * Continue scheduled oxycodone with p.r.n. hydromorphone Subjective Date/time seen: 08/12/22 15:13 Interval history: Date of service: 08/12/2022 Real deshpande is a 61-year-old male with a history of hypertension, hypothyroidism, renal cell carcinoma, DVT on chronic anticoagulation, adrenal insufficiency, and chronic back pain who is seen in follow-up for ch oledocholithiasis and pancreatitis. Patient underwent ERCP today and tolerated this well. He had clear liquids following the procedure and also tolerated this well. He is eager to advance to solid foods. He has no abdominal pain. Denies nausea, vomiting, fever, chills. He does complain of chronic neck and back pain which he sta
--- NOTE | 2022-08-12 15:13 | PM.IMPN ---
Progress Note: A&P Assessment and Plan (1) Choledocholithiasis: Code(s): K80.50 - Calculus of bile duct without cholangitis or cholecystitis without obstruction Status: Acute Assessment and Plan: MRCP revealed 4 mm stone in the common bile duct Underwent ERCP today which revealed papillary stenosis and choledocholithiasis. Sphincterotomy was performed with extraction of sludge Advance diet as tolerated Appreciate GI consultation (2) Acute pancreatitis: Code(s): K85.90 - Acute pancreatitis without necrosis or infection, unspecified Status: Acute Assessment and Plan: patient presented with abdominal pain lipase elevated at 3472 upon admission, currently 848 Advance to full liquid diet Continue to trend lipase Supportive care. Analgesics and antiemetics available as needed (3) Transaminitis: Code(s): R74.01 - Elevation of levels of liver transaminase levels Status: Acute Assessment and Plan: Secondary to above Total bili normalized today. AST and ALT trending down Continue to monitor (4) Hypothyroidism: Code(s): E03.9 - Hypothyroidism, unspecified Status: Acute Assessment and Plan: continue home levothyroxine TSH low at 0.021 with normal T4 1.67 and T3 1.20 Will need repeat TSH with reflex as an outpatient (5) Hypertension: Code(s): I10 - Essential (primary) hypertension Status: Acute Assessment and Plan: Blood pressures have been remaining stable continue home amlodipine trend blood pressure adjust therapy as indicated (6) Adrenal insufficiency: Code(s): E27.40 - Unspecified adrenocortical insufficiency Status: Acute Assessment and Plan: continue hydrocortisone 15 mg daily No need for stress dosing of steroids at this time. Monitor BP trends (7) Metastatic renal cell carcinoma to bone: Code(s): C79.51 - Secondary malignant neoplasm of bone; C64.9 - Malignant neoplasm of unspecified kidney, except renal pelvis Status: Acute Assessment and Plan: follows [facility] Estevez continue home chemo pill, does currently get infusions stated he was in remission stable at this time If home oral chemotherapy can be brought in, will resume during admission (8) Chronic anticoagulation: Code(s): Z79.01 - group home (current) use of anticoagulants Status: Acute Assessment and Plan: Maintained on Eliquis due to history of DVT Eliquis held for ERCP resume when clinically appropriate (9) Chronic pain: Code(s): G89.29 - Other chronic pain Status: Acute Assessment and Plan: Chronic neck and back pain Continue scheduled oxycodone with p.r.n. hydromorphone Subjective Date/time seen: 08/12/22 15:13 Interval history: Date of service: 08/12/2022 Real deshpande is a 61-year-old male with a history of hypertension, hypothyroidism, renal cell carcinoma, DVT on chronic anticoagulation, adrenal insufficiency, and chronic back pain who is seen in follow-up for choledocholithiasis and pancreatitis. Patient underwent ERCP today and tolerated this well. He had clear liquids following the procedure and also tolerated this well. He is eager to advance to solid foods. He has no abdominal pain. Denies nausea, vomiting, fever, chills. He does complain of chronic neck and back pain which he states is unchanged. Denies urinary symptoms. Denies diarrhea. He has no additional concerns. Review of Systems Review of Systems: All systems reviewed & are unremarkable except as noted in HPI and below Exam Narrative: General: Well-nourished, well-appearing 61-year-old male, sitting up in bed, comfortable, NARD Neuro: awake, alert and oriented x4, speech clear, no focal neuro deficits noted HEENMT: normocephalic, atraumatic, EOMI, sclerae anicteric, moist oral mucosa Res
[2022-08-12] MEDS: HYDROmorphone HCL INJ (*CRX) 1 MG/ML SYR IV PUSH (18:03)
[2022-08-12] MEDS: TAMSULOSIN HCL 0.4 MG CAPSULE 0.8 MG PO (21:00)
[2022-08-13 06:00] VITALS: BP 146/90; PULSE 75; RESP 18; TEMP 36.6; O2SAT 97
[2022-08-13] MEDS: LEVOTHYROXINE SODIUM 150 MCG TABLET PO (06:22)
[2022-08-13 06:35] LABS: Hematocrit 38.7 % (42.0-52.0); Hemoglobin 13.5 g/dL (14.0-18.0); Mean Corpuscular HGB Conc 34.9 g/dl (32-36); Mean Corpuscular Hemoglobin 31.7 pg (26-34); Mean Corpuscular Volume 90.8 fl (80-100); Mean Platelet Volume 9.2 fl (7.4-10.4); Platelet Count Result 594 k/mm3 (150-375); Red Blood Count 4.26 M/mm3 (4.6-6.20); Red Cell Distribution Width 13.6 % (11.5-14.5); White Blood Count 18.2 K/mm3 (4.5-10.0)
[2022-08-13 06:49] LABS: Alanine Aminotransferase 165 U/L (6-50); Albumin Level 3.6 g/dL (3.5-5.1); Alkaline Phosphatase 104 U/L (38-126); Anion Gap 9 mmol/L (8-16); Aspartate Amino Transferase 79 U/L (17-59); Bilirubin,Total 0.6 mg/dL (0.2-1.3); Blood Urea Nitrogen 13 mg/dL (9-20); Calcium 9.1 mg/dL (8.4-10.2); Carbon Dioxide 26 mmol/L (22-30); Chloride 101 mmol/L (98-107); Estimated CRCL calculation 99 ml/min; Estimated Glomerular Filt Rate > 60; Glucose 111 mg/dL (65-110); Lipase 1468 U/L (23-300); Potassium 4.1 mmol/L (3.4-5.0); Sodium 136 mmol/L (137-145)
--- NOTE | 2022-08-13 08:04 | WPDGIPROGNO ---
Progress Note: A&P Assessment and Plan (1) Transaminitis: Code(s): R74.01 - Elevation of levels of liver transaminase levels Status: Acute Assessment and Plan: as noted above, he has elevation of his transaminases and alkaline phosphatase. This is suggestive of common bile duct obstruction, probably sludge at the ampulla 08/11/2022 LFTs are about the same. Bilirubin has increased to 1.6. (2) Acute pancreatitis: Code(s): K85.90 - Acute pancreatitis without necrosis or infection, unspecified Status: Acute Assessment and Plan: lipase elevation suggests occlusion at the level of the ampulla. MRCP will be ordered. If common bile duct calculi are suspected he would need ERCP. However he took his last dose of Eliquis last evening and therefore we would need to wait at another 36 hours prior to doing the ERCP and sphincterotomy. MRCP has been done and does reveal a distal common bile duct stone. He will be scheduled for ERCP on Monday morning. I have discussed the procedure were with him the technique etcetera. 08/13/2022 ERCP revealed sludge. The stone that was seen on MRCP apparently passed on its own. His LFTs continue to improve, AST down to 79. Lipase bumped up somewhat after the ERCP, not unusual. He states however that his epigastric pain is resolved. I will try him on a low-fat diet. (3) Metastatic renal cell carcinoma to bone: Code(s): C79.51 - Secondary malignant neoplasm of bone; C64.9 - Malignant neoplasm of unspecified kidney, except renal pelvis Status: Acute Assessment and Plan: He states that he is said to be in remission. (4) Chronic anticoagulation: Code(s): Z79.01 - retirement (current) use of anticoagulants Status: Acute Assessment and Plan: Because of deep vein thrombosis which is likely due to hypercoagulable state secondary to malignancy, he has been on Eliquis. This will be held for the time being. 08/13/2022 will restart Eliquis today. (5) Leukocytosis: Code(s): D72.829 - Elevated white blood cell count, unspecified Status: Acute Assessment and Plan: this is new. Will start Zosyn and then discharge him on Cipro for 5 days. Perhaps he was beginning to develop some cholangitis? He is afebrile. Subjective Date/time seen: 08/13/22 08:04 he is feeling fairly good.? he denies any exacerbation of his epigastric pain, although now he is having discomfort in his pelvic area.? It is a constant aching.? this however has also improved since yesterday. No change in urinary issues.? He is doing well with clear liquids.? He did well following ERCP. He tolerated of full liquid diet last night. I would like to try him on regular food. He states that although his is currently in the emergency room, 1 of his children could pick him up if he is discharged today Exam Const: General: alert Orientation/consciousness: patient oriented x3 Resp: Auscultation: clear to auscultation bilaterally Cardio: Rhythm: regular rhythm GI: Inspection: normal to inspection GI Palp: No abdominal tenderness, Yes Soft to palpation, No Guarding due to palpation present (GI) and Yes No hepatosplenomegaly present Auscultation: normal bowel sounds Neuro: General: patient oriented x3 Objective Data Vital Signs Vital Signs: Vital Signs - 24 hr 08/12/22 08:06 08/12/22 08:06 08/12/22 10:00 Temperature 37.3 C 37.3 C 37.1 C Pulse Rate 69 69 71 Respiratory Rate 18 18 20 Blood Pressure 145/92 H 145/92 H 133/93 H Pulse Oximetry 97 97 99 Oxygen Delivery Room Air Room Air Simple Face Mask Oxygen Flow Rate 4 08/12/22 10:10 08/12/22 10:20 08/12/22 10:30 Temperature Pulse Rate 73 72 74 Respiratory Rate 20 20 20 Blood Pressure 147/91 H 130/70 130/79 Pulse Oximetry 99 97 97 Oxygen Delivery Nasal Cannula Nasal Cannula Nasal Cannula Oxygen Flow Rate 2 2 2 08/12/22 10:40 08/12/22 10:50 08/12/22 11:00 Temperature
[2022-08-13] MEDS: HYDROCORTISONE 5 MG TABLET 15 MG PO (08:29)
[2022-08-13] MEDS: PANTOPRAZOLE 40 MG TABLET PO (08:30)
[2022-08-13] MEDS: amLODIPine BESYLATE 5 MG TABLET 10 MG PO (08:30)
[2022-08-13] MEDS: FLUoxetine HCL 20 MG CAPSULE 60 MG PO (08:30)
[2022-08-13] MEDS: oxyCODONE HCL (*CRX) 10 MG TAB SR 12HR 30 MG PO (08:30)
[2022-08-13] MEDS: APIXABAN 5 MG TABLET PO (08:33)
--- NOTE | 2022-08-13 10:45 | P.DS_ITS ---
DS: Admitting Diagnosis Discharge Date 08/13/22 1045 Admitting Diagnosis Choledocholithiasis DS: Discharge Diagnosis Discharge Diagnosis (1) Choledocholithiasis: Code(s): K80.50 - Calculus of bile duct without cholangitis or cholecystitis without obstruction Status: Acute Assessment and Plan: MRCP revealed 4 mm stone in the common bile duct * Underwent ERCP today which revealed papillary stenosis and choledocholithiasis. * Sphincterotomy was performed with extraction of sludge * Advance diet as tolerated * Appreciate GI consultation (2) Acute pancreatitis: Code(s): K85.90 - Acute pancreatitis without necrosis or infection, unspecified Status: Acute Assessment and Plan: * patient presented with abdominal pain * lipase elevated at 3472 upon admission, currently 1468 * Advance to full liquid diet * Continue to trend lipase * Supportive care. Analgesics and antiemetics available as needed (3) Transaminitis: Code(s): R74.01 - Elevation of levels of liver transaminase levels Status: Acute Assessment and Plan: * Secondary to above * Total bili normalized today. * AST and ALT trending down 79/165 * Continue to monitor (4) Hypothyroidism: Code(s): E03.9 - Hypothyroidism, unspecified Status: Acute Assessment and Plan: * continue home levothyroxine * TSH low at 0.021 with normal T4 1.67 and T3 1.20 * Will need repeat TSH with reflex as an outpatient (5) Hypertension: Code(s): I10 - Essential (primary) hypertension Status: Acute Assessment and Plan: * Blood pressures have been remaining stable * continue home amlodipine * trend blood pressure * adjust therapy as indicated (6) Adrenal insufficiency: Code(s): E27.40 - Unspecified adrenocortical insufficiency Status: Acute Assessment and Plan: * continue hydrocortisone 15 mg daily * No need for stress dosing of steroids at this time. Monitor BP trends (7) Metastatic renal cell carcinoma to bone: Code(s): C79.51 - Secondary malignant neoplasm of bone; C64.9 - Malignant neoplasm of unspecified kidney, except renal pelvis Status: Acute Assessment and Plan: * follows with a [place] oncologist Dr. Estevez * continue home chemo pill, does currently get infusions * stated he was in remission * stable at this time * If home oral chemotherapy can be brought in, will resume during admission (8) Chronic anticoagulation: Code(s): Z79.01 - nursing home (current) use of anticoagulants Status: Acute Assessment and Plan: * Maintained on Eliquis due to history of DVT * Eliquis held for ERCP * resume when clinically appropriate (9) Chronic pain: Code(s): G89.29 - Other chronic pain Status: Acute Assessment and Plan: * Chronic neck and back pain * Continue scheduled oxycodone with p.r.n. hydromorphone (10) Leukocytosis: Code(s): D72.829 - Elevated white blood cell count, unspecified Status: Acute Assessment and Plan: * WBCs 18.2 today * Zosyn was started * will discharge on Cipro for 5 days * no fever noted * no complaints or current issues DS: Summary Hospital Course Hospital Course: patient is 61-year-old male with a past medical history of renal carcinoma, hypothyroidism, hypertension, DVT, chronic pain who presented
--- NOTE | 2022-08-13 10:45 | PM.DS ---
DS: Admitting Diagnosis Discharge Date 08/13/22 1045 Admitting Diagnosis Choledocholithiasis DS: Discharge Diagnosis Discharge Diagnosis (1) Choledocholithiasis: Code(s): K80.50 - Calculus of bile duct without cholangitis or cholecystitis without obstruction Status: Acute Assessment and Plan: MRCP revealed 4 mm stone in the common bile duct Underwent ERCP today which revealed papillary stenosis and choledocholithiasis. Sphincterotomy was performed with extraction of sludge Advance diet as tolerated Appreciate GI consultation (2) Acute pancreatitis: Code(s): K85.90 - Acute pancreatitis without necrosis or infection, unspecified Status: Acute Assessment and Plan: patient presented with abdominal pain lipase elevated at 3472 upon admission, currently 1468 Advance to full liquid diet Continue to trend lipase Supportive care. Analgesics and antiemetics available as needed (3) Transaminitis: Code(s): R74.01 - Elevation of levels of liver transaminase levels Status: Acute Assessment and Plan: Secondary to above Total bili normalized today. AST and ALT trending down 79/165 Continue to monitor (4) Hypothyroidism: Code(s): E03.9 - Hypothyroidism, unspecified Status: Acute Assessment and Plan: continue home levothyroxine TSH low at 0.021 with normal T4 1.67 and T3 1.20 Will need repeat TSH with reflex as an outpatient (5) Hypertension: Code(s): I10 - Essential (primary) hypertension Status: Acute Assessment and Plan: Blood pressures have been remaining stable continue home amlodipine trend blood pressure adjust therapy as indicated (6) Adrenal insufficiency: Code(s): E27.40 - Unspecified adrenocortical insufficiency Status: Acute Assessment and Plan: continue hydrocortisone 15 mg daily No need for stress dosing of steroids at this time. Monitor BP trends (7) Metastatic renal cell carcinoma to bone: Code(s): C79.51 - Secondary malignant neoplasm of bone; C64.9 - Malignant neoplasm of unspecified kidney, except renal pelvis Status: Acute Assessment and Plan: [facility] Estevez continue home chemo pill, does currently get infusions stated he was in remission stable at this time If home oral chemotherapy can be brought in, will resume during admission (8) Chronic anticoagulation: Code(s): Z79.01 - shelter (current) use of anticoagulants Status: Acute Assessment and Plan: Maintained on Eliquis due to history of DVT Eliquis held for ERCP resume when clinically appropriate (9) Chronic pain: Code(s): G89.29 - Other chronic pain Status: Acute Assessment and Plan: Chronic neck and back pain Continue scheduled oxycodone with p.r.n. hydromorphone (10) Leukocytosis: Code(s): D72.829 - Elevated white blood cell count, unspecified Status: Acute Assessment and Plan: WBCs 18.2 today Zosyn was started will discharge on Cipro for 5 days no fever noted no complaints or current issues DS: Summary Hospital Course Hospital Course: patient is 61-year-old male with a past medical history of renal carcinoma, hypothyroidism, hypertension, DVT, chronic pain who presented to the ED with abdominal pain accompanied with nausea and vomiting. Upon arrival abdominal CT did not show any remarkably findings however lipase was elevated at 34 72. GI was consulted and MRCP was ordered. MRCP did show a 4 mm stone in the bile duct. ERCP was performed there after. ERCP was successful and patient was able to tolerate a diet. Liver enzymes were also noted to be elevated which was also related to stone obstruction. Patient was on Eliquis however it did have to be held for 36 hours prior to the ERCP. Patient is doing pretty well
== END 2022-08-13 13:15 | disposition home or self-care (01) | DRG 444 ==
LOC: ANHED 07:09 → ANH3MEDSUR 09:41
PROVIDERS: Emergency Medicine; Internal Medicine Gastroenterology; Physician Assistant; Admitting Provider Internal Medicine; Emergency Provider Emergency Medicine; Visit Provider Nurse Practitioner
PROC: 0FC98ZZ Extirpation of Matter from Common Bile Duct, Via Natural or Artificial Opening Endoscopic (ICD-10-PCS; CPT 43260; principal; 2022-08-12 08:30)
DX: K80.51 Calculus of bile duct without cholangitis or cholecystitis with obstruction (principal); K85.90 Acute pancreatitis without necrosis or infection, unspecified; C79.51 Secondary malignant neoplasm of bone; C64.9 Malignant neoplasm of unspecified kidney, except renal pelvis; E27.40 Unspecified adrenocortical insufficiency; R74.01 Elevation of levels of liver transaminase levels; E03.9 Hypothyroidism, unspecified; I10 Essential (primary) hypertension; M54.9 Dorsalgia, unspecified; G89.29 Other chronic pain; D72.829 Elevated white blood cell count, unspecified; F32.A Depression, unspecified; Z79.01 Long term (current) use of anticoagulants; Z79.899 Other long term (current) drug therapy; Z86.718 Personal history of other venous thrombosis and embolism; Z87.891 Personal history of nicotine dependence; Z90.81 Acquired absence of spleen; Z90.49 Acquired absence of other specified parts of digestive tract; Z90.5 Acquired absence of kidney
CPT/HCPCS: 36415; 74177; 74183; 74329; 76376; 80053; 81001; 83690; 83735; 84439; 84443; 84480; 85025; 85027; 85610; 96374; 99285; A9270; A9577; G0378; J0131; J0330; J1100; J1170; J2001; J2270; J2405; J2543; J2704; J7030; J7120; Q9967

== ENCOUNTER 2024-07-01 20:45 | Emergency (ER) | payer OTHER, MEDICAID, SELFPAY ==
[2024-07-01 20:46] VITALS: BP 149/86; PULSE 91; RESP 14; TEMP 36.6; O2SAT 100
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
[2024-07-01 21:43] LABS: Basophils Absolute Auto 0.1 K/mm3 (0.0-0.1); Basophils Percent Auto 0.7 % (0.2-1.2); Eosinophils Absolute Auto 0.3 K/mm3 (0-0.3); Eosinophils Percent Auto 3.2 % (0-4.4); Hemoglobin 10.5 g/dL (14.0-18.0); Immature Granulocyte Absolute 0.06 K/mm3 (0.00-0.031); Immature Granulocyte Percent A 0.6 % (0-0.5); Lymphocytes Absolute Auto 3.61 K/mm3 (0.9-3.2); Lymphocytes Percent Auto 37.4 % (18.3-44.2); Mean Corpuscular HGB Conc 30.9 g/dl (32-36); Mean Corpuscular Hemoglobin 26.5 pg (26-34); Mean Corpuscular Volume 85.9 fl (80-100); Mean Platelet Volume 9.3 fl (7.4-10.4); Monocytes Absolute Auto 1.5 K/mm3 (0.1-0.6); Monocytes Percent Auto 15.4 % (2.6-8.5); Neutrophils Absolute Auto 4.1 K/mm3 (1.3-6.7); Neutrophils Percent Auto 42.7 % (45.5-73.1); Red Blood Count 3.96 M/mm3 (4.6-6.20); Red Cell Distribution Width 16.6 % (11.5-14.5); White Blood Count 9.6 K/mm3 (4.5-10.0)
[2024-07-01] MEDS: LACTATED RINGERS 1,000 ML 999 ML IV CONT ×2 (21:43→23:28)
[2024-07-01 21:45] VITALS: BP 142/71; PULSE 85; RESP 20; O2SAT 99
--- NOTE | 2024-07-01 21:47 | PC.NURSE ---
RNs (Brianna & Mimi) & tech (Supriya) unsuccessfully attempted to replace pts mccann. EDP [place] notified. No further orders at this time.
[2024-07-01 21:50] LABS: Platelet Count Result 1418 k/mm3 (150-375)
[2024-07-01 21:54] LABS: INR 1.2; Prothrombin Time 15.1 Seconds (11.1-14.7)
[2024-07-01 21:55] LABS: Partial Thromboplastin Time 27.8 Seconds (22.3-36.8)
[2024-07-01 21:57] LABS: Alanine Aminotransferase 34 U/L (6-50); Albumin Level 3.6 g/dL (3.5-5.1); Alkaline Phosphatase 92 U/L (38-126); Anion Gap 7 mmol/L (4-12); Aspartate Amino Transferase 33 U/L (17-59); Bilirubin,Total 0.3 mg/dL (0.2-1.3); Blood Urea Nitrogen 17 mg/dL (9-20); Calcium 8.9 mg/dL (8.4-10.2); Carbon Dioxide 31 mmol/L (22-30); Chloride 102 mmol/L (98-107); Estimated CRCL calculation 97 ml/min; Estimated Glomerular Filt Rate > 60; Glucose 119 mg/dL (65-110); Magnesium 1.9 mg/dL (1.6-2.3); Potassium 3.5 mmol/L (3.4-5.0); Sodium 140 mmol/L (137-145)
[2024-07-01 21:59] LABS: Lactic Acid Reflex 2.1 mmol/L (0.7-2.0)
[2024-07-01 22:51] LABS: Bacteria Urine Rare /hpf; Need Manual Microscopic Reviewed; Non Pathogenic Casts 0-2; RBC Urine >100 /hpf (0-2); Squamous Epithelial Cell Urine Occasional /hpf (Few); WBC Urine 51-100 /hpf (0-3)
[2024-07-01 22:52] LABS: Add Urine Microscopic? YES; Appearance Urine Turbid (Clear); Bilirubin Urine 1+ (Negative); Blood Urine 3+ (Negative); Glucose Urine UA Negative (Negative); Ketones Urine Trace mg/dL (Negative); Leukocyte Esterase Ur 1+ LEU/UL (Negative); Nitrate Urine Negative (Negative); Protein Urine 3+ mg/dL (Negative); Specific Grav Ur 1.034 (1.001-1.035); pH Urine 5.5 (5.0-9.0)
[2024-07-01 22:53] LABS: Color Urine Light Red (Yellow)
[2024-07-01] MEDS: SULFAMETHOXAZOLE/TRIMETHOPRIM 800/160 MG DS TABLET 1 TAB PO (23:28)
[2024-07-01] MEDS: oxyCODONE HCL (*CRX) 5 MG TAB IR 10 MG PO (23:28)
[2024-07-01 23:30] VITALS: BP 155/89; PULSE 79; RESP 20; O2SAT 99
[2024-07-02 00:41] LABS: Reflex Lactic Acid Yes or No Add Lactic
[2024-07-02 01:48] VITALS: BP 155/87; PULSE 80; RESP 18; O2SAT 100
== END 2024-07-02 03:55 | disposition home or self-care (01) ==
PROVIDERS: Emergency Provider Student in an Organized Health Care Education/Training Program
DX: N39.0 Urinary tract infection, site not specified (principal); Z98.890 Other specified postprocedural states; I10 Essential (primary) hypertension; E03.9 Hypothyroidism, unspecified; E27.40 Unspecified adrenocortical insufficiency; Z85.528 Personal history of other malignant neoplasm of kidney; Z86.718 Personal history of other venous thrombosis and embolism; Z92.21 Personal history of antineoplastic chemotherapy; Z87.891 Personal history of nicotine dependence; Z90.5 Acquired absence of kidney; Z90.49 Acquired absence of other specified parts of digestive tract; Z90.81 Acquired absence of spleen; Z79.01 Long term (current) use of anticoagulants; Z79.899 Other long term (current) drug therapy
CPT/HCPCS: 36415; 51702; 80053; 81001; 83605; 83735; 85025; 85610; 85730; 87086; 99283; A9270; J7120

== ENCOUNTER 2025-06-18 14:00 | Outpatient (RCR) | payer OTHER, SELFPAY ==
--- NOTE | 2025-05-28 16:28 | OPREHPOC ---
Outpatient Therapy Plan of Care This is a Multidisciplinary Plan of Care that may contain components documented by all disciplines (PT, OT, and ST.) PT Problem 1 PT Problem #1 Knowledge Deficit PT Goal 1 Goal / Goal Update Patient to demonstrate independence with HEP for improved self-reliance of symptom management. Target Visit 4 PT Problem 2 PT Problem #2 Pain PT Goal 1 Goal / Goal Update 1. Patient to decrease subjective reports of pain to <=6/10 for 2 consecutive weeks for improved ADL tolerance. 2.Patient to report 25% improvement in quantity and quality of sleep. Target Visit 8 PT Problem 3 PT Problem #3 Impaired Range of Motion PT Goal 1 Goal / Goal Update 1. Patient to demonstrate an increase of SREEKANTH cervical rotation AROM to 30 to improve safety with driving. 2.Patient to demonstrate an increase of cervical ext AROM with minimal c/o pain to improve the ability to drink from a cup. 3. Pt to demonstrate an increase of SREEKANTH shoulder flexion AROM to >=120 deg to improve the ability to don a T-shirt. Target Visit 8 PT Problem 4 PT Problem #4 Impaired Strength PT Goal 1 Goal / Goal Update Patient to demonstrate SREEKANTH shoulder strength >=3/5 for improved functional stability required for ADLs. Target Visit 8
--- NOTE | 2025-05-28 16:28 | PTOPEVAL1 ---
Assessment and note entered by Yulissa Varela, PT Evaluation Information Assessment Status Evaluation ICD-10 Condition Codes (PT) Cervicalgia M54.2,Encounter for other orthopedic aftercare Z47.89 Subjective Information Primary Complaint: Upper Back and Neck Pain History of current condition: Pt had a cervical fusion revision in August of 2024. He had kidney cancer that metastasized to his bone. He had to have a flap/graft taken from his inner thigh and blood vessels from the lower leg to help with vascularization in the neck. He feels his upper traps are always rock hard. 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 Reports the heaviest thing he has lifted since surgery was a gallon of milk. Pt is R handed. Sxs made worse with: hard to tell, can just be resting/at random Sxs improved with: pain medication dulls discomfort CLOF: able to cut grass with riding mower, does not do any other recreational activities, needs help to tie his shoes, jackets and shirts PLOF: fishing, lawn care, bowling, shooting pool Reported Pain Level Pain Score 4: Self Report Assessment PT Clinical Summary Pt is a 64 year old male who presents to physical therapy with a primary complaint of upper quadrant pain since revision of cervical fusion in August of 2024. Pt demonstrates SREEKANTH shoulder weakness, pain, decreased cervical and shoulder ROM, muscle atrophy, abnormal posture, and decreased sleep tolerance that limit their ability to perform ADLs such as dressing and driving. Pt will benefit from skilled physical therapy to address the above listed deficits and return to PLOF. Pt educated on anatomy, prognosis, and PT POC. Plan of Care Interventions Gait Training,Hot Pack/Cold Pack,Manual Therapy, Neuro Re-education,Patient/Caregiver Education, Therapeutic Activities,Therapeutic Exercise,Self- Care/Home Management PT Services Indicated Yes Treatment Frequency and 1-2x/wk for 8 sessions Duration These treatments will address the objective and functional deficits as defined above. The patient will be advanced safely and appropriately in order for the patient to progress towards his/her prior level of function. Additional exercises will be introduced and as well as a comprehensive home exercise program upon discharge, if needed, ?to ensure carryover of functional gains achieved in the clinic. This treatment plan has been reviewed and agreement upon by the patient.
--- NOTE | 2025-06-25 14:22 | PCPTNOTE ---
Cancelled today hurting and did not sleep last night. PER FRONT OFFICE. AKS
--- NOTE | 2025-06-26 14:52 | PCPTNOTE ---
Pt called to cancel his appointment due to illness.
--- NOTE | 2025-07-02 11:39 | PCPTNOTE ---
No call no show, reason unknown. AKLarisa
--- NOTE | 2025-07-15 11:52 | PTOPDC ---
Assessment and note entered by Allyson Garcia, PT Assessment Status Discharge - Pt Not Present ICD-10 Condition Codes (PT) Cervicalgia M54.2,Encounter for other orthopedic aftercare Z47.89 Subjective Information pt called and canceled all PT appointments due to increase pain, on July 02. Assessment PT Clinical Summary Juan received the PT evaluation and 2 treatment sessions. He then canceled 3 appointments. And canceled all remaining appointments due to increase pain. Discharge PT. The goals were not addressed. Plan of Care PT Services Indicated No
== END 2025-07-15 12:38 | disposition home or self-care (01) ==
LOC: ANHPT 14:00
DX: M50.33 Other cervical disc degeneration, cervicothoracic region (principal); G89.18 Other acute postprocedural pain; L03.116 Cellulitis of left lower limb; L03.115 Cellulitis of right lower limb; R41.841 Cognitive communication deficit; Z98.1 Arthrodesis status
CPT/HCPCS: 97110; 97112; 97162; 97530